=== PATIENT | female | born 2005 | race Two or more races ===

== ENCOUNTER → 2024-05-28 10:37 | Outpatient (BNVA) | payer OTHER, SELFPAY | PROVIDERS: Visit Provider Physician Assistant Surgical ==

== ENCOUNTER 2024-06-21 08:17 | Outpatient (AMB) | payer OTHER, SELFPAY ==
--- OUTSIDE RECORDS SUMMARY | 2024-06-21 08:18 | XMS_ITS | Continuity of Care Document ---
Author Organization [facility] Address [address] [place] [address]- Care Team Providers Care Cupola Hoist Operator Name Role Phone Percy BELLE, Davina Aguiar Primary Care Physician Encounter [facility] [place] Date(s): 03/30/21 - 04/29/21 [facility]/[address] [address]- Attending Physician: AdmOlivia lewis Admitting Physician: Admtr, Olivia Referring Physician: Admtr, Ar8 Allergies, Adverse Reactions, Alerts Substance Reaction Severity Status NKA Active Immunizations Given and Recorded Vaccine Date Status Refusal Reason SARS-CoV-2 (COVID-19) mRNA BNT-162b2 vac 03/09/21 Given Human Papillomavirus Vaccine 06/26/19 Recorded Human Papillomavirus Vaccine 05/08/18 Recorded Influenza Virus Vaccine (oldterm) 06/26/19 Recorde d Influenza Virus Vaccine (oldterm) 06/25/18 Recorde d Poliovirus Vaccine, Inactivated 01/18/19 Recorded Poliovirus Vaccine, Inactivated 03/24/08 Recorded Poliovirus Vaccine, Inactivated 04 Recorded Meningococcal Conjugate Vaccine 05/08/18 Recorded tetanus-diphtheria toxoids (Td) 05/08/18 Recorded Varicella Virus Vaccine 12/05/11 Recorded Varicella Virus Vaccine 08/19/08 Recorded Measles/Mumps/Rubella Virus Vaccine 01/21/10 Recor ded Measles/Mumps/Rubella Virus Vaccine 08/19/08 Recor ded Haemophilus B Conj Vaccine (oldterm) 05/06/09 Luis rded Haemophilus B Conj Vaccine (oldterm) 03/24/08 Luis rded Haemophilus B Conj Vaccine (oldterm) 04 Luis rded Hepatitis B Vaccine (old term) 05/06/09 Recorded Hepatitis B Vaccine (old term) 01/24/05 Recorded Hepatitis B Vaccine (old term) 04 Recorded Hepatitis B Vaccine (old term) 04 Recorded diphtheria/tetanus/pertussis, acel(DTaP) 01/16/09 Recorded diphtheria/tetanus/pertussis, acel(DTaP) 08/15/08 Recorded diphtheria/tetanus/pertussis, acel(DTaP) 03/24/08 Recorded diphtheria/tetanus/pertussis, acel(DTaP) 05/15/06 Recorded diphtheria/tetanus/pertussis, acel(DTaP) 04 Recorded Diphth-Tetanus Toxoids (Pedi) (oldterm) 05/15/06 G iven pneumococcal 13-valent vaccine 01/24/05 Recorded pneumococcal 13-valent vaccine 04 Recorded Medications Augmentin 875 mg-125 mg oral tablet 1 tablet, By Mouth, Every 12 hours, # 14 tablet, 0 Refills, Maintenance, 01/17/21 16:16:00 EDT, Tablet, Partial fill upon patient request if the prescription is for a schedule II opioid drug. Start Date: 01/17/21 Stop Date: 01/24/21 Status: Ordered Problem List Condition Effective Dates Status Health Status Inform ant Obesity, pediatric(Confirmed) Active Cerebral concussion(Confirmed) Active Eczema(Confirmed) Active Menstrual periods irregular(Confirmed) Active Failed vision screen(Confirmed) Active Social History Social History Type Response Smoking Status Never smoker; Tobacc o user in household: No entered on: 02/17/15 Sex
--- OUTSIDE RECORDS SUMMARY | 2024-06-21 08:18 | XMS_ITS | Continuity of Care Document ---
Author Organization [facility] Address [address] [place] [address]- Care Team Providers Care Machine Taper Name Role Phone Percy BELLE, Davina Aguiar Primary Care Physician [place] [facility] [place] Date(s): 01/04/22 - [facility] [address] [address]- Attending Physician: Not on Staff, Attending MD Allergies, Adverse Reactions, Alerts No Known Allergies Immunizations Given and Recorded Vaccine Date Status Refusal Reason SARS-CoV-2 mRNA (vkkijhx-bsof-fwqyy) vax 11/21/21 Given tetanus/diphtheria/pertussis, acel(Tdap) 09/15/21 Given influenza virus vaccine, inactivated 07/21/21 Give n SARS-CoV-2 (COVID-19) mRNA BNT-162b2 vac 05/26/21 Given SARS-CoV-2 (COVID-19) mRNA BNT-162b2 vac 03/09/21 Given [...] Recorded pneumococcal 13-valent vaccine 04 Recorded Medications betamethasone topical valerate 0.1% ointment See Instructions, mix small amount with other 2 creams, apply sparingly to nipple after each feed, do not remove before next feed, # 45 Gm, 0 Refills, Maintenance, 01/31/22 12:17:00 EDT, [facility] #[id number], Partial fill upon patient request i... Start Date: 01/31/22 Status: Ordered Depo-Provera Inj = 150 mg, Intramuscular, Once, 0 Refills, Maintenance Start Date: 11/21/21 Status: Ordered hydrocortisone 1% topical cream 1 application, Topically, 2 times a day, apply to af apply in a thin film to the affected skin and rub in gently and completely, # 15 Gm, 0 Refills, Maintenance, 01/31/22 12:06:00 EDT, Cream, [facility] #[id number], may substitute cream for oint... Start Date: 01/31/22 Status: Ordered miconazole 2% topical ointment See Instructions, mix small amount with 2 other creams ordered, apply sparingly to nipple after each feed, do not remove before next feed, # 45 Gm, 0 Refills, Maintenance, 01/31/22 12:17:00 EDT, [facility] #[id number], Partial fill upon patient r... Start Date: 01/31/22 Status: Ordered mupirocin 2% topical ointment See Instructions, mix small amount with 2 other creams, apply sparingly to nipple after each feed, do not remove before next feed, # 45 Gm, 0 Refills, Maintenance, 01/31/22 12:17:00 EDT, [facility] #[id number], Partial fill upon patient request i... Start Date: 01/31/22 Status: Ordered Multivitamins with Folic Acid 1 mg oral capsule See Instructions, TAKE ONE DAILY BY MOUTH, # 100 capsule, 3 Refills, Maintenance, 05/11/21 14:11:00EDT, [facility] #[id number], Partial fill upon patient request if the prescription is for a schedule II opioid drug., TAKE ONE DAILY BY MOUTH, 157... Start Date: 05/11/21 Status: Ordered ProAir HFA 90 mcg/inh inhalation aerosol with adapter 2, puffs, Inhalation, Every 6 hours, PRN, # 18 Gm, Refills 1, Tot. Refills 1, Maintenance, 05/26/2115:26:00 EDT, Aerosol, Route to Pharmacy Electronically, [id number], [facility] #[id number], 157, cm, 05/26/21 15:17:00... Start Date: 05/26/21 Status: Ordered Vaporizer Vaporizer, See Instructions, # 1 each, Refills 0, Tot. Refills 0, Maintenance, use as directed bedside Dx Allergic rhinitis, eczema, 07/28/21 17:31:00 EST, Supply, 157, cm, 07/21/21 16:18:00 EDT, Height, 103.63, kg, 07/28/21 16:32:00 EST, Dry Weight Start Date: 07/28/21 Status: Ordered Problem List Condition Effective Dates Status Health Status Inform ant H/O Anxiety(Confirmed) 1 Active Asthma(Confirmed) 2 Active H/O Cerebral concussion(Confirmed) 2014 Active Vaccinated with 1st/COVID-19(Confirmed) 05/11/21 Active H/O Eczema(Confirmed) Active History of hemorrhage(Confirmed) Active H/O Irregular Menses(Confirmed) Active 1not engaged with mental health services at present. Informed of [facility] services - pt to call office and request services if needed. 2managed by PCP Social History Social History Type Response Smoking Status Never (less than 100 in lifetime); Exposure to Secondhand Smoke: No entered on: 07/28/21 Sex
--- OUTSIDE RECORDS SUMMARY | 2024-06-21 08:18 | XMS_ITS | Continuity of Care Document ---
Author Organization [facility] Address [address] [place] [address]- Care Team Providers Care Independent Driver Name Role Phone Vsihnu Sun MD Primary Care Physician [phone] [facility] [place] Date(s): 06/01/23 - 08/27/[address] [address]- Attending Physician: Not on Staff, Attending MD Allergies, Adverse Reactions, Alerts No Known Allergies Immunizations Given and Recorded Vaccine Date Status Refusal Reason influenza virus vaccine, inactivated 06/30/23 Give n influenza virus vaccine, inactivated 08/26/22 Give n influenza virus vaccine, inactivated 07/21/21 Give n SARS-CoV-2 mRNA (rbrxpxz-dwcc-oahpi) vax 11/21/21 Given tetanus/diphtheria/pertussis, acel(Tdap) 09/15/21 Given SARS-CoV-2 (COVID-19) mRNA BNT-162b2 vac 05/26/21 Given [...] Recorded pneumococcal 13-valent vaccine 04 Recorded Medications loratadine 10 mg oral tablet 10 mg, 1, tablet, By Mouth, Daily, PRN, # 30 tablet, Refills 2, Tot. Refills 2, Maintenance, Itch, 06/30/23 13:12:00 EDT, Route to Pharmacy Electronically, [facility] #[id number], Partial fill upon patient request if the prescription is for a miesha... Start Date: 06/30/23 Stop Date: 09/28/23 Status: Ordered Protective Ointment with Vitamins A&D topical ointment 1 applicator, Topically, Daily, apply on dry skin, # 120 Gm, 2 Refills, Maintenance, 06/30/23 13:12:00 EDT, [facility] #[id number], Partial fill upon patient request if the prescription is for aschedule II opioid drug., 1 applicator Topically Da... Start Date: 06/30/23 Status: Ordered Problem List Condition Confirmation Course Effective Dates Status Health St [facility] Informant H/O Anxiety 1 Confirmed Active Asthma 2 Confirmed Active H/O Cerebral concussion Confirmed 2014 Active Vaccinated with 1st/COVID-19 Confirmed 05/11/21 Active H/O Eczema Confirmed Active History of hemorrhage Confirmed Active H/O Irregular Menses Confirmed Active Healthy adolescent on routine physical examination Confirmed Active 1not engaged with mental health services at present. Informed of [facility] services - pt to call office and request services if needed. 2managed by PCP Social History Social History Type Response Smoking Status Never (less than 100 in lifetime); Exposure to Secondhand Smoke: No entered on: 07/28/21 Sex Patient Care team information Care Team Personnel Name: Vishnu Sun MD Position: [facility] Resident Member Role: PCP Address: Address: [address] [place] [address]- Care Team Related Persons Name: LAM REBOLLEDO Address: home [address] [place] [id number] Name: ЕЛЕНА REBOLLEDO Address: home [address] [place] [address] Name: LAM SMALL Address: home [address] [place] [address] Name: CATALINA CASTLE Address: home [address] [place] [phone] Name: TAMMY ANG Address: home [address] [place] [address] Name: KALIE ROSAS Address: [address] Address: home [address] [place] [address] Name: ЕЛЕНА SCHMID Address: home [address] [place] [address]
--- OUTSIDE RECORDS SUMMARY | 2024-06-21 08:18 | XMS_ITS | Continuity of Care Document ---
Author Organization [facility] Address [address] [place] [address]- Care Team Providers Care Multimedia Assistant Name Role Phone Vishnu Sun MD Primary Care Physician Encounter [facility] Date(s): 11/02/23 - 01/24/[address] [address]- Attending Physician: Not on Staff, Attending MD Allergies, Adverse Reactions, Alerts No Known Allergies Immunizations Given and Recorded Vaccine Date Status Refusal Reason Meningococcal Conjugate Vaccine 08/28/23 Given Meningococcal Conjugate Vaccine 05/08/18 Recorded Hepatitis A Adult Vaccine 08/28/23 Given influenza virus vaccine, inactivated 06/30/23 Give n influenza virus vaccine, inactivated 08/26/22 Give n influenza virus vaccine, inactivated 07/21/21 Give n SARS-CoV-2 mRNA ([id number]-lafo-ciyfa) vax 11/21/21 Given tetanus/diphtheria/pertussis, acel(Tdap) 09/15/21 Given SARS-CoV-2 (COVID-19) mRNA BNT-162b2 vac 05/26/21 Given SARS-CoV-2 (COVID-19) mRNA BNT-162b2 vac 03/09/21 Given Human Papillomavirus Vaccine 06/26/19 Recorded Human Papillomavirus Vaccine 05/08/18 Recorded Influenza Virus Vaccine (oldterm) 06/26/19 Recorde d Influenza Virus Vaccine (oldterm) 06/25/18 Recorde d Poliovirus Vaccine, Inactivated 01/18/19 Recorded Poliovirus Vaccine, Inactivated 03/24/08 Recorded Poliovirus Vaccine, Inactivated 04 Recorded tetanus-diphtheria toxoids (Td) 05/08/18 Recorded Varicella [...] Recorded pneumococcal 13-valent vaccine 04 Recorded Medications calcium carbonate 500 mg (200 mg elemental calcium) oral tablet, chewable 1,000 mg, 2, tablet, Chew, Daily, PRN, # 60 tablet, Refills 1, Tot. Refills 1, Maintenance, as needed for dyspepsia, 08/28/23 15:23:00 EST, Route to Pharmacy Electronically, [facility] #[id number], Partial fill upon patient request if the prescri... Start Date: 08/28/23 Status: Ordered fluticasone 50 mcg/inh nasal spray See Instructions, SHAKE LIQUID AND USE 1 SPRAY IN EACH NOSTRIL DAILY SHAKE WELL BEFORE USING, # 16 Gm, 11 Refills, Maintenance, 09/29/23 17:26:00 EST, [facility] #[id number], 30, SHAKE LIQUID AND USE 1 SPRAY IN EACH NOSTRIL DAILY SHAKE WELL BEFOR... Start Date: 09/29/23 Status: Ordered loratadine 10 mg oral tablet 10 mg, 1, tablet, By Mouth, Daily, PRN, # 30 tablet, Refills 2, Tot. Refills 2, Maintenance, Itch, 09/28/23 13:12:00 EST, Route to Pharmacy Electronically, [facility] #[id number], Partial fill upon patient request if the prescription is for a miesha... Start Date: 09/28/23 Stop Date: 12/27/23 Status: Ordered omeprazole 20 mg oral enteric coated capsule 1 capsule, By Mouth, Daily, # 14 capsule, 0 Refills, Maintenance, 09/12/23 18:52:00 EST, [facility] #[id number], 156, cm, 08/28/23 14:14:00 EST, Height, 114.3, kg, 08/28/23 14:14:00 EST, Dry Weight Start Date: 09/12/23 Stop Date: 09/26/23 Status: Ordered predniSONE 20 mg oral tablet See Instructions, 3 tab PO one time , then 2 tab PO one time a day for 4 days., # 11 tablet, 0 Refills, Maintenance, 08/28/23 15:19:00 EST, [facility] #[id number], Partial fill upon patient request if the prescription is for a schedule II opioid... Start Date: 08/28/23 Status: Ordered Protective Ointment with Vitamins A&D topical ointment 1 applicator, Topically, Daily, apply on dry skin, # 120 Gm, 2 Refills, Maintenance, 06/30/23 13:12:00 EDT, [facility] #[id number], Partial fill upon patient request if the [...] mental health services at present. Informed of [facility] services - pt to call office and request services if needed. 2managed by PCP Social History Social History Type Response Smoking Status Never (less than 100 in lifetime); Exposure to Secondhand Smoke: No entered on: 07/28/21 Sex Patient Care team information Care Team Personnel Name: Vishnu Sun MD Position: S Resident Member Role: PCP Address: Address: [address] [place] [address]- Care Team Related Persons Name: LAM REBOLLEDO Address: home [address] [place] [address] Name: ЕЛЕНА REBOLLEDO Address: home [address] [place] [address] Name: LAM SMALL Address: home [address] [place] [address] Name: CATALINA CASTLE Address: home [address] [place] [address] Name: TAMMY ANG Address: home [address] [place] [address] Name: KALIE ROSAS Address: [address] Address: home [address] [place] [address] Name: ЕЛЕНА SCHMID Address: home [address] [place] [address]
--- OUTSIDE RECORDS SUMMARY | 2024-06-21 08:18 | XMS_ITS | Continuity of Care Document ---
Author Organization [facility] Address [address] [place] [address]- Care Team Providers Care Engineer Technician Name Role Phone Percy BELLE, Davina Aguiar Primary Care Physician [place] [facility] [place] Date(s): 08/26/22 - 09/25/22 [facility] [address]- Attending Physician: AdmOlivia lewis Admitting Physician: Admtr, Ar8 Referring Physician: Admtr, Ar8 Allergies, Adverse Reactions, Alerts No Known Allergies Immunizations Given and Recorded Vaccine Date Status Refusal Reason influenza virus vaccine, inactivated 08/26/22 Give n influenza virus vaccine, inactivated 07/21/21 Give n SARS-CoV-2 mRNA ([id number]-edny-rnsnz) vax 11/21/21 Given tetanus/diphtheria/pertussis, acel(Tdap) 09/15/21 Given [...] Recorded pneumococcal 13-valent vaccine 04 Recorded Medications Liletta 52 mg intrauterine device 1 each = 52 mg, Once, Inserted 02/28/22, 0 Refills, Maintenance, 02/28/22 16:23:00 EDT, Partial fillupon patient request if the prescription is for a schedule II opioid drug. Start Date: 02/28/22 Status: Ordered omeprazole 20 mg oral enteric coated capsule 1 capsule = 20 mg, By Mouth, Daily, # 30 capsule, 0 Refills, Maintenance, 08/26/22 10:39:00 EST, [place], [facility] #[id number], Partial fill upon patient request if the prescription is for a schedule II opioid drug., 154.5, cm, 08/26/22 9:56... Start Date: 08/26/22 Status: Ordered Multivitamins with Folic Acid 1 mg oral capsule See Instructions, TAKE ONE DAILY BY MOUTH, # 100 capsule, 3 Refills, Maintenance, 05/11/21 14:11:00EDT, [facility] #[id number], Partial fill upon patient request if the prescription is for a schedule II opioid drug., TAKE ONE DAILY BY MOUTH, 157... Start Date: 05/11/21 Status: Ordered ProAir HFA 90 mcg/inh inhalation aerosol with adapter 2, puffs, Inhalation, Every 6 hours, PRN, # 18 Gm, Refills 1, Tot. Refills 1, Maintenance, 05/26/2115:26:00 EDT, Aerosol, Route to Pharmacy Electronically, [id number], [id number], 157, cm, 05/26/21 15:17:00... Start Date: 05/26/21 Status: Ordered Vaporizer Vaporizer, See Instructions, # 1 each, Refills 0, Tot. Refills 0, Maintenance, use as directed bedside Dx Allergic rhinitis, eczema, 07/28/21 17:31:00 EST, Supply, 157, cm, 07/21/21 16:18:00 EDT, Height, 103.63, kg, 07/28/21 16:32:00 EST, Dry Weight Start Date: 07/28/21 Status: Ordered Problem List Condition Confirmation Course Effective Dates Status Health St [facility] Informant H/O Anxiety 1 Confirmed Active Asthma 2 Confirmed Active H/O Cerebral concussion Confirmed 2015 Active Vaccinated with 1st/COVID-19 Confirmed 05/11/21 Active H/O Eczema Confirmed Active History of hemorrhage Confirmed Active H/O Irregular Menses Confirmed Active Healthy adolescent on routine physical examination Confirmed Active 1not engaged with mental health services at present. Informed of [facility] services - pt to call office and request services if needed. 2managed by PCP Social History Social History Type Response Smoking Status Never (less than 100 in lifetime); Exposure to Secondhand Smoke: No entered on: 07/28/21 Sex Patient Care team information Care Team Personnel Name: Davina Greer MD, V Position: [facility] Primary Care Physician Member Role: PCP Address: Address: [address] [place] [address]- Care Team Related Persons Name: ЕЛЕНА REBOLLEDO Address: home [address] [place] [address] Name: LAM SMALL Address: home [address] [place] [address] Name: CATALINA CASTLE Address: home [address] [place] [address] Name: TAMMY ANG Address: home [address] [place] [address] Name: RALPHVAZQUEZROBERT Address: [address] Address: home [address] [place] [address] Name: ЕЛЕНА SCHMID Address: home [address] [place] [address]
--- OUTSIDE RECORDS SUMMARY | 2024-06-21 08:18 | XMS_ITS | Continuity of Care Document ---
Author Organization [facility] Address [address] [place] [address]- Care Team Providers Care Land Law Examiner Name Role Phone Percy BELLE, Davina Aguiar Primary Care Physician [place] [facility] [place] - 12/24/[facility] [address] [address]- Attending Physician: Sofia Donnelly CNM Admitting Physician: Sofia Donnelly CNM Allergies, Adverse Reactions, Alerts No Known Allergies Immunizations Given and Recorded Vaccine Date Status Refusal Reason SARS-CoV-2 mRNA (niojzlw-acuv-vtxgh) vax 11/21/21 Given tetanus/diphtheria/pertussis, acel(Tdap) 09/15/21 Given [...] rded Haemophilus B Conj Vaccine (oldterm) 04 Lusi rded Hepatitis B Vaccine (old term) 05/06/09 [...] Recorded pneumococcal 13-valent vaccine 04 Recorded Medications Colace sodium 100 mg oral capsule 100 mg, 1, capsule, By Mouth, 2 times a day, PRN, # 60 capsule, Refills 1, Tot. Refills 1, Maintenance, for constipation, 05/26/21 15:26:00 EDT, Route to Pharmacy Electronically, [facility]#[id number], Partial fill upon patient request if the pr... Start Date: 05/26/21 Status: Ordered Depo-Provera Inj = 150 mg, Intramuscular, Once, 0 Refills, Maintenance Start Date: 11/21/21 Status: Ordered famotidine 20 mg oral tablet 20 mg, 1, tablet, By Mouth, Daily at bedtime, # 90 tablet, Refills 1, Tot. Refills 1, Maintenance, 09/29/21 16:45:00 EST, Route to Pharmacy Electronically, [facility] #[id number], Partial fill upon patient request if the prescription is for a miesha... Start Date: 09/29/21 Status: Ordered MiraLax oral powder for reconstitution = 17 Gm, By Mouth, Daily, dissolve in water before taking, # 255 Gm, 0 Refills, Maintenance, 07/16/21 16:52:00 EDT, REC Powder, [facility] #[id number], Partial fill upon patient request if the prescription is for a schedule II opioid drug., 17 Gm... Start Date: 07/16/21 Status: Ordered Multivitamins with Folic Acid 1 mg oral capsule See Instructions, TAKE ONE DAILY BY MOUTH, # 100 capsule, 3 Refills, Maintenance, 05/11/21 14:11:00EDT, [facility] #[id number], Partial fill upon patient request if the prescription is for a schedule II opioid drug., TAKE ONE DAILY BY MOUTH, 157... Start Date: 05/11/21 Status: Ordered ProAir HFA 90 mcg/inh inhalation aerosol with adapter 2, puffs, Inhalation, Every 6 hours, PRN, # 18 Gm, Refills 1, Tot. Refills 1, Maintenance, 05/26/2115:26:00 EDT, Aerosol, Route to Pharmacy Electronically, [id number], [facility] #[id number], 157, cm, 05/26/21 15:17:00... Start Date: 05/26/21 [...] H/O Anxiety(Confirmed) 1 Active Asthma(Confirmed) 2 Active Positive GBS test(Confirmed) 3 05/26/21 Active H/O Cerebral concussion(Confirmed) 2014 Active Vaccinated with 1st/COVID-19(Confirmed) 05/11/21 Active H/O Eczema(Confirmed) Active H/O Irregular Menses(Confirmed) Active Obesity during (Confirmed) Active (Confirmed) Active Intrauterine in teenager(Confirmed) Active 1not engaged with mental health services at present. Informed of [facility] services - pt to call office and request services if needed. 2managed by PCP 3Urine Social History Social History Type Response Smoking Status Never (less than 100 in lifetime); Exposure to Secondhand Smoke: No entered on: 07/28/21 Sex
--- OUTSIDE RECORDS SUMMARY | 2024-06-21 08:18 | XMS_ITS | Continuity of Care Document ---
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 Name Role Phone Vishnu Sun MD Primary Care Physician [place] [facility] [place] 10/12/23 [facility] [address]- [place] Allergies, Adverse Reactions, Alerts No Known Allergies Immunizations Given and Recorded Vaccine Date Status Refusal Reason Meningococcal Conjugate Vaccine 08/28/23 Given Meningococcal Conjugate Vaccine 05/08/18 Recorded Hepatitis A Adult Vaccine 08/28/23 Given influenza virus vaccine, inactivated 06/30/23 Give n influenza virus vaccine, inactivated 08/26/22 Give n influenza virus vaccine, inactivated 07/21/21 Give n SARS-CoV-2 mRNA ([id number]) vax 11/21/21 Given tetanus/diphtheria/pertussis, acel(Tdap) 09/15/21 Given [...] 08/28/23 15:23:00 EST, Route to Pharmacy Electronically, [facility] #[id number], Partial fill upon patient request if the prescri... Start Date: 08/28/23 Status: Ordered fluticasone 50 mcg/inh nasal spray See Instructions, SHAKE LIQUID AND USE 1 SPRAY IN EACH NOSTRIL DAILY SHAKE WELL BEFORE USING, # 16 Gm, 11 Refills, Maintenance, 09/29/23 17:26:00 EST, [facility] #[id number], 30, SHAKE LIQUID AND USE 1 SPRAY IN EACH NOSTRIL DAILY SHAKE WELL BEFOR... Start Date: 09/29/23 Status: Ordered loratadine 10 mg oral tablet 10 mg, 1, tablet, By Mouth, Daily, PRN, # 30 tablet, Refills 2, Tot. Refills 2, Maintenance, Itch, 09/28/23 13:12:00 EST, Route to Pharmacy Electronically, [facility] #[id number], Partial fill upon patient request if the prescription is for a miesha... Start Date: 09/28/23 Stop Date: 12/27/23 Status: Ordered omeprazole 20 mg oral enteric coated capsule 1 capsule, By Mouth, Daily, # 14 capsule, 0 Refills, Maintenance, 09/12/23 18:52:00 EST, [facility] #[id number], 156, cm, 08/28/23 14:14:00 EST, Height, 114.3, kg, 08/28/23 14:14:00 EST, Dry Weight Start Date: 09/12/23 Stop Date: 09/26/23 Status: Ordered predniSONE 20 mg oral tablet See Instructions, 3 tab PO one time , then 2 tab PO one time a day for 4 days., # 11 tablet, 0 Refills, Maintenance, 08/28/23 15:19:00 EST, [facility] #[id number], Partial fill upon patient request if the prescription is for a schedule II opioid... Start Date: 08/28/23 Status: Ordered Protective Ointment with Vitamins A&D topical ointment 1 applicator, Topically, Daily, apply on dry skin, # 120 Gm, 2 Refills, Maintenance, 06/30/23 13:12:00 EDT, [facility] #[id number], Partial fill upon patient request if the [...] mental health services at present. Informed of [facility] services - pt to call office and request services if needed. 2managed by PCP Social History Social History Type Response Smoking Status Never (less than 100 in lifetime); Exposure to Secondhand Smoke: No entered on: 07/28/21 Sex Patient Care team information Care Team Personnel Name: Vishnu Sun MD Position: S Resident Member Role: PCP Address: Address: [address] [place] [address]- [place] Care Team Related Persons Name: LAM REBOLLEDO Address: home [address] [place] [address] Name: ЕЛЕНА REBOLLEDO Address: home [address] [place] [address] Name: LAM SMALL Address: home [address] [place] [address] Name: CATALINA CASTLE Address: [address] [place] [address] Name: TAMMY ANG Address: home [address] [place] [address] Name: KALIE ROSAS Address: [id number] Address: home [address] [place] [address] Name: ЕЛЕНА SCHMID Address: home [address] [place] [address]
--- OUTSIDE RECORDS SUMMARY | 2024-06-21 08:18 | XMS_ITS | Continuity of Care Document ---
Author Organization [facility] Address [address] [place] [address]- Care Team Providers Care Occupational Safety Specialist Name Role Phone Vishnu Sun MD Primary Care Physician [phone] [place] [facility] [place] - 01/30/[address] [address]- Discharge Disposition: A-D/C Home Attending Physician: Willian Wheeler MD Admitting Physician: Willian Wheeler MD Referring Physician: Not on Staff, Referring MD Allergies, Adverse Reactions, Alerts No Known Allergies Immunizations Given and Recorded Vaccine Date Status Refusal Reason Meningococcal Conjugate Vaccine 08/28/23 Given Meningococcal Conjugate Vaccine 05/08/18 Recorded Hepatitis A Adult Vaccine 08/28/23 Given influenza virus vaccine, inactivated 06/30/23 Give n influenza virus vaccine, inactivated 08/26/22 Give n influenza virus vaccine, inactivated 07/21/21 Give n SARS-CoV-2 mRNA (nqhvyqa-[id number]) vax 11/21/21 Given tetanus/diphtheria/pertussis, acel(Tdap) 09/15/21 Given [...] 08/28/23 15:23:00 EST, Route to Pharmacy Electronically, [facility] #[id number], Partial fill upon patient request if the prescri... Start Date: 08/28/23 Status: Ordered fluticasone 50 mcg/inh nasal spray See Instructions, SHAKE LIQUID AND USE 1 SPRAY IN EACH NOSTRIL DAILY SHAKE WELL BEFORE USING, # 16 Gm, 11 Refills, Maintenance, 09/29/23 17:26:00 EST, [facility] #[id number], 30, SHAKE LIQUID AND USE 1 SPRAY IN EACH NOSTRIL DAILY SHAKE WELL BEFOR... Start Date: 09/29/23 Status: Ordered loratadine 10 mg oral tablet 10 mg, 1, tablet, By Mouth, Daily, PRN, # 30 tablet, Refills 2, Tot. Refills 2, Maintenance, Itch, 09/28/23 13:12:00 EST, Route to Pharmacy Electronically, [facility] #[id number], Partial fill upon patient request if the prescription is for a miesha... Start Date: 09/28/23 Stop Date: 12/27/23 Status: Ordered omeprazole 20 mg oral enteric coated capsule 1 capsule, By Mouth, Daily, # 14 capsule, 0 Refills, Maintenance, 09/12/23 18:52:00 EST, [facility] #[id number], 156, cm, 08/28/23 14:14:00 EST, Height, 114.3, kg, 08/28/23 14:14:00 EST, Dry Weight Start Date: 09/12/23 Stop Date: 09/26/23 Status: Ordered ondansetron 4 mg oral tablet, disintegrating 1 tablet = 4 mg, By Mouth, Every 8 hours, PRN Nausea & Vomiting, for 3 days, # 9 tablet, 0 Refills, Acute 02/02/24 4:29:00 EDT, 01/30/24 4:29:00 EDT, Tablet, [facility] #[id number], Partial fill upon patient request if the prescription is for a s... Start Date: 01/30/24 Stop Date: 02/02/24 Status: Ordered predniSONE 20 mg oral tablet See Instructions, 3 tab PO one time , then 2 tab PO one time a day for 4 days., # 11 tablet, 0 Refills, Maintenance, 08/28/23 15:19:00 EST, [facility] #[id number], Partial fill upon patient request if the prescription is for a schedule II opioid... Start Date: 08/28/23 Status: Ordered Protective Ointment with Vitamins A&D topical ointment 1 applicator, Topically, Daily, apply on dry skin, # 120 Gm, 2 Refills, Maintenance, 06/30/23 13:12:00 EDT, [facility] #[id number], Partial fill upon patient request if the prescription is for aschedule II opioid drug., 1 applicator Topically Da... Start Date: 06/30/23 Status: Ordered Toradol Inj 10 mg, Injection, IV Push Slowly, Once, STAT, 01/29/24 21:55:00 EDT, Stop date 01/29/24 21:55:00 EDT Start Date: 01/29/24 Stop Date: 01/29/24 Status: Completed Problem List Condition Confirmation Course Effective Dates [...] mental health services at present. Informed of [facility] services - pt to call office and request services if needed. 2managed by PCP Results Radiology Reports * Exam Date Time Procedure Performing Provider Status 01/30/24 2:[address] Abd/Pelvis W/ IV + Oral Contrast Ab Christianson; Popyp (Verified) Notes: (CT Abd/Pelvis W/ IV + Oral Contrast) Reason For Exam: RLQ abdominal pain;Other: RESULT: CT Abd/Pelvis W/ IV + Oral Contrast CT Abd/Pelvis W/ IV + Oral Contrast Hx of Present Illness: Pt c o n v d for the past week accompanied with right upper abdominal pain. Pt denies noting fever chills. hx gallbladder removal. Pt denies sob, c p. Pt denies dysuria; Reason: Other:; RLQ abdominal pain; Clinical Question(s): Other:; Order Comment: TECHNIQUE: Spiral CT through the abdomen and pelvis with IV contrast formatted in 3 planes. 100 cc of Omnipaque 300 was administered intravenously. This study was performed without oral contrast. Weight-based protocol using automatic tube modulation was used to optimize exposure parameters. CTDIvol Body: 30.00 mGy, DLP Body: 1680 mGy*cm. COMPARISON: CT 08/05/2023. FINDINGS: Automated Process Operator View Findings, Lines and Tubes: None. Visualized Chest: Lung bases are clear. No pleural effusion. The heart is normal in size. No pericardial effusion. Diaphragm: Normal. Liver: Diffuse low-attenuation throughout the liver parenchyma consistent with hepatic steatosis. No evidence of mass. Gallbladder: Absent consistent with prior cholecystectomy. Bile ducts: No biliary ductal dilation. Spleen: Normal. Accessory splenic tissue is incidentally noted. Pancreas: Normal. Adrenal glands: Normal. Kidneys and ureters: No hydronephrosis, stones, or suspicious masses. Bladder: Normal. Reproductive organs: IUD in place. Stomach, small bowel, and large bowel: The stomach is physiologically distended. The small and large bowel are normal in caliber without evidence of obstruction. The Oral contrast has reached the terminal ileum. Appendix: Normal, best seen on coronal 55. Peritoneum and retroperitoneum: No ascites or pneumoperitoneum. No omental or mesenteric lesions. Lymph nodes: No enlarged lymph nodes. Small mesenteric lymph nodes, example series 201 image 64. Blood vessels: Normal. No aneurysm. No evidence of venous thrombosis. Abdominal and pelvic wall: Unremarkable. Bones: No acute abnormality. IMPRESSION: No acute abnormality. I have personally reviewed the images and I agree with this report. WSN: [id number] Ordering Physician: Soniya Rainey Dictated By: Natalio Mahan MD Dictated Date/Time: 01/30/24 7:30 am Reviewed By: Cailin Lin MD Signed By: Cailin Lin MD Signed Date/Time: 01/30/24 7:35 am Transcribed By: MALI Transcribed Date/Time: 01/30/24 3:27 am Vital Signs Most recent to oldest [Reference Range]: 1 2 3 Height 155 cm (01/29/24 6:58 PM) 155 cm (01/29/24 5:23 PM) Weight 111.3 kg (01/29/24 6:58 PM) 111.3 kg (01/29/24 5:23 PM) Oxygen Saturation [94-100 %] 100 % (01/30/24 4:34 AM) 100 % (01/29/24 11:04 PM) 100 % (01/29/24 5:23 PM) Pulse Rate [55-90 bpm] 88 bpm (01/30/24 4:34 AM) 98 bpm *H* (01/29/24 11:04 PM) 96 bpm *H* (01/29/24 5:23 PM) Body Mass Index [18.5-24.99 kg/m2] 46.33 kg/m2 *>HHI* (01/29/24 5:23 PM) Blood Pressure [90-138/55-84 mm Hg] 105/63mm Hg (01/30/24 4:34 AM) 118/65mm Hg (01/29/24 11:04 PM) 115/71mm Hg (01/29/24 5:23 PM) Respiratory Rate [16-30 br/min] 18 br/min (01/30/24 4:34 AM) 16 br/min (01/29/24 11:04 PM) 18 br/min (01/29/24 5:23 PM) Temperature [96.8-100.4 DegF] 97.5 DegF (01/30/24 4:34 AM) 98.1 DegF (01/29/24 5:23 PM) Mode of Delivery (Oxygen) Room air (01/30/24 4:34 AM) Room air (01/29/24 11:04 PM) Room air (01/29/24 5:23 PM) Blood pressure sites Arm, right (01/30/24 4:34 AM) Arm, left (01/29/24 11:04 PM) Arm, left (01/29/24 5:23 PM) Temperature Route Oral (01/30/24 4:34 AM) Oral (01/29/24 5:23 PM) Dry Weight 111.3 kg (01/29/24 6:58 PM) 111.3 kg (01/29/24 5:23 PM) Weight Obtained Via Patient/family state d (01/29/24 5:23 PM) Dry Weight Obtained Via Patient/family s tated (01/29/24 5:23 PM) Height Percentile 10.09 % 1 (01/29/24 6:58 PM) 10.09 % 2 (01/29/24 5:23 PM) Height ZScore -1.28 3 (01/29/24 6:58 PM) -1.28 4 (01/29/24 5:23 PM) Weight Percentile Per Age 99.29 % 5 (01/29/24 6:58 PM) 99.29 % 6 (01/29/24 5:23 PM) BMI Percentile 99.10 7 (01/29/24 5:23 PM) BMI ZScore 2.37 8 (01/29/24 5:23 PM) Weight ZScore 2.45 9 (01/29/24 6:58 PM) 2.45 10 (01/29/24 5:23 PM) 1Result Comment: ^~:!Percentile Source [facility] 2Result Comment: ^~:!Percentile Source [facility] 3Result Comment: ^~:!ZScore Source [facility] 4Result Comment: ^~:!ZScore Source [facility] 5Result Comment: ^~:!Percentile Source [facility] 6Result Comment: ^~:!Percentile Source [facility] 7Result Comment: ^~:!Percentile Source [facility] 8Result Comment: ^~:!ZScore Source [facility] 9Result Comment: ^~:!ZScore Source [facility] 10Result Comment: ^~:!ZScore Source [facility] Social History Social History Type Response Smoking Status Never (less than 100 in lifetime); Exposure to Secondhand Smoke: No entered on: 07/28/21 Sex Note * Liam BELLE, Willian Darnell: PERFORM Event Display: Patient Education Leaflets Authored Date: [id number] Ondansetron Disintegrating Oral Tablet ?? [id number] Ondansetron Disintegrating Oral Tablet Uses For nausea or vomiting. ?? Instructions Let the medicine dissolve on your tongue and then swallow. Keep the medicine at room temperature. Avoid heat and direct light. Tell your doctor if you have severe or persistent sweating, diarrhea or vomiting. These can increase your risk of a serious side effect. If you are using this medicine regularly, it is important to take each dose of medicine on time. Keep taking the medicine even if you feel well. If you forget to take a dose on time, take it as soon as you remember. If it is almost time for thenext dose, do not take the missed dose. Return to your normal schedule. Do not take 2 doses at one time. Drug interactions can change how medicines work or increase risk for side effects. Tell your healthcare providers about all medicines taken. Include prescription and faar-tqj-roxkzsy medicines, vitamins, and herbal medicines. Speak with your doctor or pharmacist before starting or stopping any medicine. Tell your doctor if symptoms do not get better or if they get worse. Keep all appointments for medical exams and tests while on this medicine. ?? Cautions Tell your doctor and pharmacist if you ever had an allergic reaction to a medicine. Some patients taking this medicine have experienced serious side effects. Please speak with your doctor to understand the risks and benefits associated with this medicine. Do not use the medication any more than instructed. This medicine may cause dizziness or fainting. Do not stand or sit up quickly. Your ability to stay alert or to react quickly may be impaired by this medicine. Do not drive or operate machinery until you know how this medicine will affect you. Please check with your doctor before drinking alcohol while on this medicine. Call the doctor if there are any signs of confusion or unusual changes in behavior. It is unknown if this medicine passes into breast milk. Ask your doctor before . During , this medicine should be used only when clearly needed. Talk to your doctor about the risks and benefits. Do not take [place]'s wort while on this medicine. Do not share this medicine with anyone who has not been prescribed this medicine. ?? Side Effects The following is a list of some common side effects from this medicine. Please speak with your doctor about what you should do if you experience these or other side effects. ??? constipation ??? dizziness or drowsiness ??? lack of energy and tiredness ??? headaches ??? lightheadedness Call your doctor or get medical help right away if you notice any of these more serious side effects: ??? agitated feeling or trouble sleeping ??? loss of balance ??? chest pain ??? diarrhea ??? fainting ??? hallucinations (unusual thoughts, seeing or hearing things that are not real) ??? fast, irregular, or slow heartbeat ??? muscle aches, spasms or abnormal movements ??? muscle trembling ??? restlessness ??? stomach pain ??? blurring or changes of vision ??? severe or persistent vomiting A few people may have an allergic reaction to this medicine. Symptoms can include difficulty breathing, skin rash, itching, swelling, or severe dizziness. If you notice any of these symptoms, seek medical help quickly. ?? Extra Please speak with your doctor, nurse, or pharmacist if you have any questions about this medicine. ?? [email or web address] IMPORTANT NOTE: This document tells you briefly how to take your medicine, but it does not tell youall there is to know about it. Your doctor or pharmacist may give you other documents about your medicine. Please talk to them if you have any questions. Always follow their advice. There is a more complete description of this medicine available in [employer]. Scan this code on your smartphone or tablet or use the web address below. You can also ask your pharmacist for a printout. If you have any questions, please ask your pharmacist. The display and use of this drug information is subject to Terms of Use. Copyright(c) 2023 [employer]. ?? [employer]. All rights reserved. This information is not intended as a substitute for professional medical care. Always follow your healthcare professional's instructions. ?? * Liam BELLE, Willian Darnell: PERFORM Event Display: Patient Education Leaflets Authored Date: [id number] Viral Gastroenteritis (Adult) ?? [id number] Viral Gastroenteritis (Adult) Gastroenteritis is often called the stomach flu. But it has nothing to do with influenza. It's mostoften caused by a virus that affects the stomach and intestinal tract. Most bouts last from 2 to 7 days. Common viruses causing gastroenteritis include norovirus, rotavirus, and hepatitis A. Nonviralcauses of gastroenteritis include bacteria, parasites, and toxins. The danger from repeated vomiting or diarrhea is dehydration. This is when the body loses too??muchfluid. When this occurs, you must replace the body fluids. Antibiotics aren't an effective treatment for this condition because it's caused by a virus. Symptoms of viral gastroenteritis may include: ??? Watery, loose stools ??? Stomach pain or belly (abdominal) cramps ??? Fever and chills ??? Nausea and vomiting ??? Loss of bowel control ??? Headache Home care Gastroenteritis is spread by contact with the stool or vomit of an infected person. This can occur from person to person or from contact with a contaminated surface. Follow these guidelines when caring for yourself at home: ??? If symptoms are severe, rest at home for the next 24 hours or until you are feeling better. ???Wash your hands with soap and clean, running water or use alcohol-based consumer loan underwriter to prevent the spread of infection. Wash your hands after touching anyone who is sick. ??? Wash your hands or use alcohol-based consumer loan underwriter after using the toilet and before meals. Clean the toilet after each use. Remember these tips when preparing food: ??? People with diarrhea should not prepare or serve food??to others. When preparing foods, wash your hands before and after. ??? Wash your hands after using cutting boards, counter tops, knives, or utensils??that have been in contact with raw food. ??? Dry your hands with a single-use disposable towel. ??? Keep uncooked meats away from cooked and gwdxz-rm-uei foods. Medicine Use acetaminophen or nonsteroidal anti-inflammatory drugs (NSAID) such as ibuprofen or naproxen to control fever, unless another medicine was given. If you have chronic liver or kidney disease, talk with your healthcare provider before using these medicines. Also talk with your provider if you've??had a stomach ulcer or??gastrointestinal bleeding. Don't give aspirin??to anyone under 18 years of age who is ill with a fever. It may result in a serious illness called Mercedes syndrome that may cause severe liver damage or even . Don't use NSAIDS if you're already taking one for another condition (like arthritis) or are on aspirin (such as for heart disease or after a stroke). If medicines for vomiting or diarrhea are prescribed, take these only as directed. Nausea and diarrhea medicines are generally OK unless you have bleeding, fever, or severe abdominal pain. Diet Follow these guidelines for??food: ??? Water and liquids are important so you don't get dehydrated. Drink small amounts often or suck on ice chips as tolerated if you are vomiting. ??? If you eat, stay away from fatty, greasy, spicy, or fried foods. ??? Don't eat dairy if you have diarrhea. This can make diarrhea worse. ??? Avoid tobacco, alcohol, and caffeine. These may worsen symptoms. During the first 24 hours (the first full day), follow the diet below: ??? Beverages. Sip sports drinks, soft drinks without caffeine, dc [place], mineral water (plain orflavored), decaffeinated tea and coffee. If you are very dehydrated, sports drinks aren't a good choice. They have too much sugar and not enough electrolytes. In this case, use products called oral rehydration solutions. You can buy these at pharmacies and grocery stores. ??? Soups. Eat clear broth, consomm??, and bouillon. ??? Desserts. Eat gelatin, ice pops, and fruit juice bars. During the next 24 hours (the second day), you may add the following to the above: ??? Hot cereal, plain toast, bread, rolls, and crackers ??? Plain noodles, rice, mashed potatoes, chicken noodle or rice soup ??? Unsweetened canned fruit (avoid pineapple), bananas ??? Limit fat intake to less than 15 grams per day. Do this by avoiding margarine, butter, oils, mayonnaise, sauces, gravies, fried foods, peanut butter, meat, poultry, and fish. ??? Limit fiber and avoid raw or cooked vegetables, fresh fruits (except bananas), and bran cereals. ??? Limit caffeine and chocolate. Don't use spices or seasonings other than salt. ??? Limit dairy products. ??? Avoid alcohol. During the next 24 hours: ??? Gradually resume a normal diet as you feel better and your symptoms improve. ??? If at any time it starts getting worse again, go back to clear liquids until you feel better. ?? Follow-up care Follow up with your healthcare provider, or??as advised. Call your provider if you don't get betterwithin 24 hours or if diarrhea lasts more than a few days. It's also important to follow up if you can't keep down liquids, which can lead to becoming dehydrated. If a stool (diarrhea) sample was taken, call as directed for the results. ?? Call 911 Call 911 if any of these occur: ??? Trouble breathing ??? Chest pain ??? Confused ??? Severe drowsiness or trouble awakening ??? Fainting or loss of consciousness ??? Rapid heart rate ??? Seizure ???Stiff neck ?? When to get medical advice Call your healthcare provider right away if any of these occur: ??? Abdominal pain that gets worse ??? Continued vomiting (can't keep liquids down) ??? Frequent diarrhea (more than 5 times a day) ???Blood in vomit or stool (black or red color) ??? Dark urine, reduced urine output, or extreme thirst ??? Weakness or dizziness ??? Drowsiness ??? Fever of 100.4??F (38??C)??or higher, or as advised by your provider ??? New rash ?? Last Reviewed Date: 2021 ?? [id number] [employer]. All rights reserved. This information is not intended as a substitute for professional medical care. Always follow your healthcare professional's instructions. ?? Patient Care team information Care Team Personnel Name: Vishnu Sun MD Position: S Resident Member Role: PCP Address: Address: [address] [place] [address]- Care Team Related Persons Name: LAM REBOLLEDO Address: home [address] [place] [address] Name: ЕЛЕНА REBOLLEDO Address: home [address] [place] [address] Name: LAM SMALL Address: home [address] [place] [address] Name: CATALINA CASTLE Address: home [address] [place] [address] Name: TAMMY ANG Address: home [address] [place] [address] Name: KALIE ROSAS Address: [id number] Address: home [address] [place] [address] Name: ЕЛЕНА SCHMID Address: home [address] [place] [address]
--- OUTSIDE RECORDS SUMMARY | 2024-06-21 08:18 | XMS_ITS | Continuity of Care Document ---
Author Organization [facility] Address [address] [place] [address]- Care Team Providers Care Geotechnical Engineer Name Role Phone Percy BELLE, Davina Aguiar Primary Care Physician [place] [facility] [place] - 09/08/22 [facility] [address]- Attending Physician: Jazmyn Aceves MD Admitting Physician: Jazmyn Aceves MD Allergies, Adverse Reactions, Alerts No Known Allergies Immunizations Given and Recorded Vaccine Date Status Refusal Reason influenza virus vaccine, inactivated 08/26/22 Give n influenza virus vaccine, inactivated 07/21/21 Give n SARS-CoV-2 mRNA ([id number]) vax 11/21/21 Given tetanus/diphtheria/pertussis, acel(Tdap) 09/15/21 Given [...] 0 Refills, Maintenance, 08/26/22 10:39:00 EST, [place], [facility] #[id number], Partial fill upon patient request if the prescription is for a schedule II opioid drug., 154.5, cm, 08/26/22 9:56... Start Date: 08/26/22 Status: Ordered Multivitamins with Folic Acid 1 mg oral capsule See Instructions, TAKE ONE DAILY BY MOUTH, # 100 capsule, 3 Refills, Maintenance, 05/11/21 14:11:00EDT, [facility] #[id number], Partial fill upon patient request if the prescription is for a schedule II opioid drug., TAKE ONE DAILY BY MOUTH, 157... Start Date: 05/11/21 Status: Ordered ProAir HFA 90 mcg/inh inhalation aerosol with adapter 2, puffs, Inhalation, Every 6 hours, PRN, # 18 Gm, Refills 1, Tot. Refills 1, Maintenance, 05/26/2115:26:00 EDT, Aerosol, Route to Pharmacy Electronically, [id number], [facility] #[id number], 157, cm, 05/26/21 15:17:00... Start Date: 05/26/21 Status: Ordered triamcinolone 0.025% topical cream 1 application, Topically, 2 times a day, for 14 days, # 60 Gm, 1 Refills, Acute 09/23/22 10:39:00 EST, 08/26/22 10:39:00 EST, Cream, [facility] #[id number], Partial fill upon patient request if the prescription is for a schedule II opioid drug.,... Start Date: 08/26/22 Stop Date: 09/23/22 Status: Ordered Vaporizer Vaporizer, See Instructions, # [...] mental health services at present. Informed of [facility] services - pt to call office and request services if needed. 2managed by PCP Social History Social History Type Response Smoking Status Never (less than 100 in lifetime); Exposure to Secondhand Smoke: No entered on: 07/28/21 Sex Patient Care team information Care Team Personnel Name: Davina Greer MD, V Position: [facility] Primary Care Physician Member Role: PCP Address: Address: [address] [place] [address]- Care Team Related Persons Name: ЕЛЕНА REBOLLEDO Address: home [address] [place] [address] Name: LAM SMALL Address: home [address] [place] [address] Name: CATALINA CASTLE Address: home [address] [place] [address] Name: TAMMY AGN Address: home [address] [place] [address] Name: KALIE ROSAS Address: [address] Address: home [address] [place] [address] Name: ЕЛЕНА SCHMID Address: home [address] [place] [address]
--- OUTSIDE RECORDS SUMMARY | 2024-06-21 08:18 | XMS_ITS | Continuity of Care Document ---
Author Organization [facility] Address [address] [place] [address]- Care Team Providers Care Senior Actuarial Analyst Name Role Phone Percy BELLE, Davina Aguiar Primary Care Physician Encounter [facility] [place] Date(s): 03/03/20 - 04/02/20 [facility] [address] [place] [address] Attending Physician: Olivia Vaca Admitting Physician: AdmOlivia lewis Referring Physician: AdmtrOlivia Allergies, Adverse Reactions, Alerts Substance Reaction Severity Status NKA Active Immunizations Given and Recorded Vaccine Date Status Refusal Reason Human Papillomavirus Vaccine 06/26/19 Recorded Human Papillomavirus Vaccine 05/08/18 Recorded Influenza Virus Vaccine (oldterm) 06/26/19 Recorde d Influenza Virus Vaccine (oldterm) 06/25/18 Recorde d Poliovirus Vaccine, Inactivated 01/18/19 Recorded Poliovirus Vaccine, Inactivated 03/24/08 Recorded Poliovirus Vaccine, Inactivated 04 Recorded tetanus-diphtheria toxoids (Td) 05/08/18 Recorded Meningococcal Conjugate Vaccine 05/08/18 Recorded Varicella Virus Vaccine 12/05/11 Recorded [...] 01/24/05 Recorded pneumococcal 13-valent vaccine 04 Recorded Problem List Condition Effective Dates Status Health Status Inform ant Obesity, pediatric(Confirmed) Active Cerebral concussion(Confirmed) Active Eczema(Confirmed) Active Menstrual periods irregular(Confirmed) Active Failed vision screen(Confirmed) Active Social History Social History Type Response Smoking Status Never smoker; Tobacc o user in household: No entered on: 02/17/15 Sex
--- OUTSIDE RECORDS SUMMARY | 2024-06-21 08:18 | XMS_ITS | Continuity of Care Document ---
Author Organization [facility] Address [address] [place] [address]- Care Team Providers Care Household Worker Name Role Phone Percy BELLE, Davina Aguiar Primary Care Physician Encounter [facility] [place] Date(s): 10/05/21 - 11/10/[address] [address]- Attending Physician: Karen Donald MD Admitting Physician: Karen Donald MD Referring Physician: Nina Joyner MD Allergies, Adverse Reactions, Alerts No Known Allergies Immunizations Given and Recorded Vaccine Date Status Refusal Reason tetanus/diphtheria/pertussis, acel(Tdap) 09/15/21 Given influenza virus vaccine, [...] 05/26/21 15:26:00 EDT, Route to Pharmacy Electronically, [facility][id number], Partial fill upon patient request if the pr... Start Date: 05/26/21 Status: Ordered famotidine 20 mg oral tablet 20 mg, 1, tablet, By Mouth, Daily at bedtime, # 90 tablet, Refills 1, Tot. Refills 1, Maintenance, 09/29/21 16:45:00 EST, Route to Pharmacy Electronically, [facility] #[id number], Partial fill upon patient request if the prescription is for a miesha... Start Date: 09/29/21 Status: Ordered MiraLax oral powder for reconstitution = 17 Gm, By Mouth, Daily, dissolve in water before taking, # 255 Gm, 0 Refills, Maintenance, 07/16/21 16:52:00 EDT, REC Powder, [facility] #[id number], Partial fill upon patient request if the prescription is for a schedule II opioid drug., 17 Gm... Start Date: 07/16/21 Status: Ordered Multivitamins with Folic Acid 1 mg oral capsule See Instructions, TAKE ONE DAILY BY MOUTH, # 100 capsule, 3 Refills, Maintenance, 05/11/21 14:11:00EDT, [facility] #[id number], Partial fill upon patient request if the prescription is for a schedule II opioid drug., TAKE ONE DAILY BY MOUTH, 157... Start Date: 05/11/21 Status: Ordered ProAir HFA 90 mcg/inh inhalation aerosol with adapter 2, puffs, Inhalation, Every 6 hours, PRN, # 18 Gm, Refills 1, Tot. Refills 1, Maintenance, 05/26/2115:26:00 EDT, Aerosol, Route to Pharmacy Electronically, [id number], [facility] #[id number], 157, cm, 05/26/21 15:17:00... Start Date: 05/26/21 [...] mental health services at present. Informed of [facility] services - pt to call office and request services if needed. 2managed by PCP 3Urine Social History Social History Type Response Smoking Status Never (less than 100 in lifetime); Exposure to Secondhand Smoke: No entered on: 07/28/21 Sex
--- OUTSIDE RECORDS SUMMARY | 2024-06-21 08:18 | XMS_ITS | Continuity of Care Document ---
Author Organization [facility] ter Address [address] [place] [address]- Care Team Providers Care Automotive Hardware Engineer Name Role Phone Vishnu Sun MD Primary Care Physician [phone] [facility] [place] Date(s): 08/04/23 - 08/05/[address] [address]- Discharge Disposition: A-D/C Home Attending Physician: Vipin Schultz MD Admitting Physician: Vipin Schultz MD Referring Physician: Not on Staff, Referring MD Allergies, Adverse Reactions, Alerts No Known Allergies Immunizations Given and Recorded Vaccine Date Status Refusal Reason influenza virus vaccine, inactivated 06/30/23 Give n influenza virus vaccine, inactivated 08/26/22 Give n influenza virus vaccine, inactivated 07/21/21 Give n SARS-CoV-2 mRNA (qkvfxak-[id number]-jtodc) vax 11/21/21 Given tetanus/diphtheria/pertussis, acel(Tdap) 09/15/21 Given [...] opioid drug. Start Date: 02/28/22 Status: Ordered loratadine 10 mg oral tablet 10 mg, 1, tablet, By Mouth, Daily, PRN, # 30 tablet, Refills 2, Tot. Refills 2, Maintenance, Itch, 06/30/23 13:12:00 EDT, Route to Pharmacy Electronically, [facility] #[id number], Partial fill upon patient request if the prescription is for a miesha... Start Date: 06/30/23 Stop Date: 09/28/23 Status: Ordered Motrin Tablet 400 mg, Tablet, By Mouth, Once, STAT, 08/05/23 6:09:00 EST, Stop date 08/05/23 6:09:00 EST Start Date: 08/05/23 Stop Date: 11/18/23 Status: Completed omeprazole 20 mg oral enteric coated capsule 1 capsule, By Mouth, Daily, # 30 capsule, 0 Refills, Maintenance, 09/30/22 12:35:00 EST, [facility] #[id number], 154.5, cm, 08/26/22 9:56:00 EST, Height, 117, kg, 08/26/22 9:56:00 EST, Dry Weight Start Date: 09/30/22 Status: Ordered Multivitamins with Folic Acid 1 mg oral capsule See Instructions, TAKE ONE DAILY BY MOUTH, # 100 capsule, 3 Refills, Maintenance, 05/11/21 14:11:00EDT, [facility] #[id number], Partial fill upon patient request if the prescription is for a schedule II opioid drug., TAKE ONE DAILY BY MOUTH, 157... Start Date: 05/11/21 Status: Ordered ProAir HFA 90 mcg/inh inhalation aerosol with adapter 2, puffs, Inhalation, Every 6 hours, PRN, # 18 Gm, Refills 1, Tot. Refills 1, Maintenance, 05/26/2115:26:00 EDT, Aerosol, Route to Pharmacy Electronically, [id number], [facility] #[id number], 157, cm, 05/26/21 15:17:00... Start Date: 05/26/21 Status: Ordered Protective Ointment with Vitamins A&D topical ointment 1 applicator, Topically, Daily, apply on dry skin, # 120 Gm, 2 Refills, Maintenance, 06/30/23 13:12:00 EDT, [facility] #[id number], Partial fill upon patient request if the prescription is for aschedule II opioid drug., 1 applicator Topically Da... Start Date: 06/30/23 Status: Ordered Vaporizer Vaporizer, See Instructions, # [...] Exam Date Time Procedure Performing Provider Status 08/05/23 8:[address] Abd/Pelvis W/ IV Contrast Only Cheryle Silva; Auth (Verified) Notes: (CT Abd/Pelvis W/ IV Contrast Only) Reason For Exam: right sided abd pain, mild elevated LFTs, s/p cholecystectomy;Other: RESULT: CT Abd/Pelvis W/ IV Contrast Only CT Abd/Pelvis W/ IV Contrast Only Hx of Present Illness: x1 day RLQ pain with N V; Reason: right sided abd pain, mild elevated LFTs, s p cholecystectomy; Clinical Question(s): Appendicitis TECHNIQUE: Spiral CT through the abdomen and pelvis with IV contrast formatted in 3 planes. 100 cc of Omnipaque 300 was administered intravenously. This study was performed without oral contrast. Weight-based protocol using automatic tube modulation was used to optimize exposure parameters. CTDIvol Body: 15.40 mGy, DLP Body: 866 mGy*cm. COMPARISON: CT abdomen and pelvis 08/08/2022 FINDINGS: Commercial Credit Officer View Findings, Lines and Tubes: None. Visualized Chest: Minimal dependent changes at the imaged right lung base. Diaphragm: Normal. Liver: Unremarkable. Gallbladder: Absent consistent with prior cholecystectomy. Bile ducts: No biliary ductal dilation. Spleen: Normal in size. Unchanged nonspecific hypodense lesions measuring up to 1.0 cm (series 201:image 14). Pancreas: Unremarkable. Adrenal glands: Unremarkable. Kidneys and ureters: Unremarkable. Bladder: Unremarkable. Reproductive organs: There is an IUD in place. Stomach, small bowel, and large bowel: In the mid left lower abdomen/upper pelvis there are loops of mid small bowel which demonstrate mild circumferential bowel wall thickening. Appendix: Normal. Peritoneum and retroperitoneum: There is trace free fluid in the pelvis which is within normal physiologic limits. Lymph nodes: No enlarged lymph nodes. Blood vessels: Unremarkable. Abdominal and pelvic wall: There is a tiny fat filled umbilical hernia. Bones: No acute abnormality. IMPRESSION: Mild circumferential bowel wall thickening at the mid small bowel in the lower abdomen/upper pelviswhich may represent mild enteritis. Differential considerations include an infectious or inflammatory etiology. A neoplastic process is less likely but not completely excluded. There is a normal-appearing appendix. I have personally reviewed the images and I agree with this report. WSN: [id number] Ordering Physician: Liberty Mckenzie Dictated By: Alea Daugherty MD Dictated Date/Time: 08/05/23 9:44 am Reviewed By: Madeline Frank MD Signed By: Madeline Frank MD Signed Date/Time: 08/05/23 9:49 am Transcribed By: MALI Transcribed Date/Time: 08/05/23 9:15 am Vital Signs Most recent to oldest [Reference Range]: 1 2 3 Height 155 cm (08/05/23 7:49 AM) 155 cm (08/05/23 2:10 AM) 155 cm (08/04/23 11:51 PM) Weight 115.2 kg (08/05/23 7:49 AM) 115.2 kg (08/05/23 2:10 AM) 115.2 kg (08/04/23 11:51 PM) Oxygen Saturation [94-100 %] 96 % (08/05/23 7:49 AM) 100 % (08/05/23 6:08 AM) 100 % (08/04/23 11:51 PM) Pulse Rate [55-90 bpm] 80 bpm (08/05/23 10:10 AM) 118 bpm *H* (08/05/23 7:49 AM) 122 bpm *H* (08/05/23 6:08 AM) Body Mass Index [18.5-24.99 kg/m2] 47.95 kg/m2 *>HHI* (08/05/23 7:49 AM) 47.95 kg/m2 *>HHI* (08/05/23 2:10 AM) 47.95 kg/m2 *>HHI* (08/04/23 11:51 PM) Blood Pressure [71-110/30-71 mm Hg] 112/61mm Hg *H* (08/05/23 7:49 AM) 120/76mm Hg *H* (08/05/23 6:08 AM) 127/77mm Hg *H* (08/04/23 11:51 PM) Respiratory Rate [16-30 br/min] 20 br/min (08/05/23 7:49 AM) 20 br/min (08/05/23 7:11 AM) 18 br/min (08/05/23 6:08 AM) Temperature [96.8-100.4 DegF] 98.4 DegF (08/05/23 7:49 AM) 98.6 DegF (08/05/23 2:10 AM) 99.0 DegF (08/04/23 11:51 PM) Mode of Delivery (Oxygen) Room air (08/05/23 7:49 AM) Room air (08/05/23 6:08 AM) Room air (08/04/23 11:51 PM) Blood pressure sites Arm, left (08/05/23 7:49 AM) Arm, left (08/05/23 6:08 AM) Arm, left (08/04/23 11:51 PM) Temperature Route Oral (08/05/23 7:49 AM) Oral (08/04/23 11:51 PM) Dry Weight 115.2 kg (08/05/23 7:49 AM) 115.2 kg (08/05/23 2:10 AM) 115.2 kg (08/04/23 11:51 PM) Weight Obtained Via Standing scale (08/04/23 11:51 PM) Dry Weight Obtained Via Standing scale (08/04/23 11:51 PM) Height Percentile 10.20 % 1 (08/05/23 7:49 AM) 10.20 % 2 (08/05/23 2:10 AM) 10.20 % 3 (08/04/23 11:51 PM) Height ZScore -1.27 4 (08/05/23 7:49 AM) -1.27 5 (08/05/23 2:10 AM) -1.27 6 (08/04/23 11:51 PM) Weight Percentile Per Age 99.38 % 7 (08/05/23 7:49 AM) 99.38 % 8 (08/05/23 2:10 AM) 99.38 % 9 (08/04/23 11:51 PM) BMI Percentile 99.25 10 (08/05/23 7:49 AM) 99.25 11 (08/05/23 2:10 AM) 99.25 12 (08/04/23 11:51 PM) BMI ZScore 2.43 13 (08/05/23 7:49 AM) 2.43 14 (08/05/23 2:10 AM) 2.43 15 (08/04/23 11:51 PM) Weight ZScore 2.50 16 (08/05/23 7:49 AM) 2.50 17 (08/05/23 2:10 AM) 2.50 18 (08/04/23 11:51 PM) 1Result Comment: ^~:!Percentile Source -CDC/WHO 2Result Comment: ^~:!Percentile Source -CDC/WHO 3Result Comment: ^~:!Percentile Source -CDC/WHO 4Result Comment: ^~:!ZScore Source -CDC/WHO 5Result Comment: ^~:!ZScore Source -CDC/WHO 6Result Comment: ^~:!ZScore Source -CDC/WHO 7Result Comment: ^~:!Percentile Source -CDC/WHO 8Result Comment: ^~:!Percentile Source -CDC/WHO 9Result Comment: ^~:!Percentile Source -CDC/WHO 10Result Comment: ^~:!Percentile Source -CDC/WHO 11Result Comment: ^~:!Percentile Source -CDC/WHO 12Result Comment: ^~:!Percentile Source -CDC/WHO 13Result Comment: ^~:!ZScore Source -CDC/WHO 14Result Comment: ^~:!ZScore Source -CDC/WHO 15Result Comment: ^~:!ZScore Source -CDC/WHO 16Result Comment: ^~:!ZScore Source -CDC/WHO 17Result Comment: ^~:!ZScore Source -CDC/WHO 18Result Comment: ^~:!ZScore Source -CDC/WHO Social History Social History Type Response Smoking Status Never (less than 100 in lifetime); Exposure to Secondhand Smoke: No entered on: 07/28/21 Sex Note * Liberty Orona: PERFORM Event Display: Patient Education Leaflets Authored Date: [id number] Noninfectious Gastroenteritis (Adult) ?? [id number] Noninfectious Gastroenteritis (Adult) Gastroenteritis can cause nausea, vomiting, diarrhea, and cramping in the belly. This may occur from food sensitivity, inflammation of your??digestive tract, medicines, stress, or other causes not related to infection.??Your symptoms will??usually??last from 1 to 3 days, but can last longer.??Antibiotics don't work against this illness. Simple home treatment will help. Home care Medicine ??? You may use acetaminophen??or NSAID medicines such as ibuprofen or naproxen to control fever, unless another medicine is prescribed. If you have chronic liver or kidney disease, or ever had a stomach ulcer or digestive bleeding, talk with your healthcare provider before using these medicines.)Aspirin should never be used in anyone under 18 years of age who is ill with a fever. It may cause severe liver damage. Don't increase your NSAID medicines if you are already taking these medicines foranother condition such as arthritis. Don't use NSAIDs if you are on aspirin. For example, if you take aspirin for heart disease or after a stroke. ??? If medicines for diarrhea or vomiting??are prescribed, take only as directed. General care and preventing spread of the illness ??? If symptoms are severe, rest at home for the next 24 hours or until you feel better. ??? Washing your hands with soap and clean, running water is the best way to prevent the spread of infection. Wash your hands after touching anyone who is sick. ??? Teach all people in your home when and how towash their hands Wet your hands with clean, running water. Lather soap on the backs of your hands, between your fingers, and under your nails. Scrub your hands for at least 20 seconds. If you need a timer, try humming the Happy Birthday song from beginning to end twice. Rinse your hands well and dry using a clean towel. ??? Wash your hands after using the toilet, touching animals, coughing or sneezing, preparing meals, and before eating meals. ??? Clean the toilet after each use. ??? Caffeine, tobacco, and alcohol can make your diarrhea, cramping, and pain worse. Consider having less or giving up these things until you have recovered. Diet ??? Water and clear liquids are important so you don't get dehydrated. Drink a small amount at a time. ??? Don't force yourself to eat, especially if you have cramps, vomiting, or diarrhea. When you finally decide to start eating, don't eat large amounts at a time, even if you are hungry. ??? If you eat, don't have fatty, greasy, spicy, or fried foods. ??? Don't eat dairy products if you have diarrhea. They can make the diarrhea worse. During the first 24 hours (the first full day), follow the diet below ??? Beverages. Water, clear liquids, soft drinks without caffeine, mineral water (plain or flavored), and decaffeinated tea and coffee. ??? Soups. Clear broth, consomm??, and bouillon. Sports drinks aren't a good choice because they have too much sugar and not enough electrolytes. In this case, useproducts called oral rehydration solutions. ??? Desserts. Plain gelatin, ice pops, and fruit juice bars. During the next 24 hours??(the second day) During the second day, you may add to the above list if you are better. If not, continue what you did the first day. ??? Hot cereal, plain toast, bread, rolls, or crackers ??? Plain noodles, rice, mashed potatoes, orchicken noodle or rice soup ??? Unsweetened canned fruit and bananas. Don't eat pineapple or citrus. ??? Limit caffeine and chocolate. No spices or seasonings except salt. During the next 24 hours ??? Gradually go back to a normal diet, as you feel better and your symptoms improve. ??? If at any time your symptoms start getting worse, go back to clear liquids until youfeel better. ?? Food preparation ??? If you have diarrhea, don't prepare food for others. When you?? prepare food for yourself, wash your hands before and after. ??? Wash your hands after using cutting boards, countertops, and knives that have been in contact with raw food. ??? Keep uncooked meats away from cookedand ejizd-yq-rjt foods. ?? Follow-up care Follow up with your??healthcare provider if you are not improving over the next 2 to 3 days, or as advised. If a stool (diarrhea) sample was taken,??call for the results as directed. ?? Call 911 Call 911 if any of these occur: ??? Trouble breathing ??? Chest pain ??? Confusion ??? Severe drowsiness or trouble awakening ??? Seizure ??? Stiff neck ?? When to seek medical advice Call your healthcare provider right away if any of these occur:? Increasing belly pain or constant lower right belly pain ??? Continued vomiting (unable to keep liquids down) ??? Frequent diarrhea (more than 5 times a day) ??? Blood in vomit or stool (black or red color) ??? Inability to tolerate solid food after a few days. ??? Dark urine, reduced urine output ??? Weakness or dizziness ??? D rowsiness ??? Fever of 100.4??F (38.0??C) or higher, or as directed by your healthcare provider ???New rash ??? Symptoms get worse or you have new symptoms ?? Last Reviewed Date: 2021 ?? 2758-0113 [employer]. All rights reserved. This information is not intended as a substitute for professional medical care. Always follow your healthcare professional's instructions. ?? Patient Care team information Care Team Personnel Name: Vishnu Sun MD Position: [facility] Resident Member Role: PCP Address: Address: [address] [place] [id number] Name: Liberty Orona Position: [facility] Associate Professional Member Role: ED Physician Manager Custom Address: Address: [address] [place] [address]- Name: Snow Ray RN Position: [facility] ED RN W/OE and Tasks Member Role: Patient Care Provider Name: Judy Randle Position: [facility] ED TA [facility] Member Role: Patient Care Provider Name: Vipin Schultz MD Position: [facility] ED Medicine MD Member Role: Admitting Physician Address: Address: [address] [place] [address] Care Team Related Persons Name: LAM REBOLLEDO Address: home [address] [place] [address] Name: ЕЛЕНА REBOLLEDO Address: home [address] [place] [address] Name: LAM SMALL Address: home [address] [place] [address] Name: CATALINA CASTLE Address: home [address] [place] [address] Name: TAMMY ANG Address: home [address] [place] [address] Name: KALIE ROSAS Address: [id number] Address: home [address] [place] [address] Name: ЕЛЕНА SCHMID Address: home [address] [place] [id number]
--- OUTSIDE RECORDS SUMMARY | 2024-06-21 08:18 | XMS_ITS | Continuity of Care Document ---
Author Organization [facility] Address [address] [place] [address]- Care Team Providers Care Electrical Prospecting Operator Name Role Phone Davina Greer MD, V Primary Care Physician Encounter [facility] Date(s): 07/26/22 - 08/25/22 [facility] [address]- [place] Allergies, Adverse Reactions, Alerts No Known Allergies Immunizations Given and Recorded Vaccine Date Status Refusal Reason SARS-CoV-2 mRNA ([id number]) vax 11/21/21 Given tetanus/diphtheria/pertussis, acel(Tdap) 09/15/21 Given [...] opioid drug. Start Date: 02/28/22 Status: Ordered Multivitamins with Folic Acid 1 mg oral capsule See Instructions, TAKE ONE DAILY BY MOUTH, # 100 capsule, 3 Refills, Maintenance, 05/11/21 14:11:00EDT, [facility] #[id number], Partial fill upon patient request if the prescription is for a schedule II opioid drug., TAKE ONE DAILY BY MOUTH, 157... Start Date: 05/11/21 Status: Ordered ProAir HFA 90 mcg/inh inhalation aerosol with adapter 2, puffs, Inhalation, Every 6 hours, PRN, # 18 Gm, Refills 1, Tot. Refills 1, Maintenance, 05/26/2115:26:00 EDT, Aerosol, Route to Pharmacy Electronically, [id number], [facility] #[id number], 157, cm, 05/26/21 15:17:00... Start Date: 05/26/21 [...] Confirmed Active H/O Irregular Menses Confirmed Active 1not engaged with mental health [...] Personnel Name: Davina Greer MD, V Position: [facility] Primary Care Physician Member Role: PCP Address: Address: [address] [place] [address]- [place] Care Team Related Persons Name: ЕЛЕНА REBOLLEDO Address: home [address] [place] [address] Name: LAM SMALL Address: home [address] [place] [address] Name: CATALINA CASTLE Address: home [address] [place] [address] Name: TAMMY ANG Address: home [facility] [place] [address] Name: KALIE ROSAS Address: [id number] Address: home [address] [place] [address] [place] Name: ЕЛЕНА SCHMID Address: home [address] [place] [address]
--- OUTSIDE RECORDS SUMMARY | 2024-06-21 08:18 | XMS_ITS | Continuity of Care Document ---
Author Organization [facility] Address [address] [place] [address]- Care Team Providers Care Scaler Name Role Phone Percy BELLE, Davina Aguiar Primary Care Physician En[facility] Date(s): 11[facility]17[facility] [address], [address] [place] [address]- Allergies, Adverse Reactions, Alerts No Known Allergies Immunizations Given and Recorded Vaccine Date Status Refusal Reason SARS-CoV-2 mRNA ([id number]-[id number]) vax 11/21/21 Given tetanus/diphtheria/pertussis, acel(Tdap) 09/15/21 Given [...] 05/26/21 15:26:00 EDT, Route to Pharmacy Electronically, [facility][id number], Partial fill upon patient request if the pr... Start Date: 05/26/21 Status: Ordered Depo-Provera Inj = 150 mg, Intramuscular, Once, 0 Refills, Maintenance Start Date: 11/21/21 Status: Ordered famotidine 20 mg oral tablet 20 mg, 1, tablet, By Mouth, Daily at bedtime, # 90 tablet, Refills 1, Tot. Refills 1, Maintenance, 09/29/21 16:45:00 EST, Route to Pharmacy Electronically, [facility] #[id number], Partial fill upon patient request if the prescription is for a miesha... Start Date: 09/29/21 Status: Ordered ibuprofen 400 mg oral tablet 400 mg, 1, tablet, By Mouth, Every 4 hours, PRN, for 5 days, # 30 tablet, Refills 0, Tot. Refills 0, Acute 12/21/21 11:58:00 EDT, for pain, 12/16/21 11:58:00 EDT, Route to Pharmacy Electronically, [facility], Partial fill upon patient re... Start Date: 12/16/21 Stop Date: 12/21/21 Status: Ordered MiraLax oral powder for reconstitution = 17 Gm, By Mouth, Daily, dissolve in water before taking, # 255 Gm, 0 Refills, Maintenance, 07/16/21 16:52:00 EDT, REC Powder, [facility] #[id number], Partial fill upon patient request if the prescription is for a schedule II opioid drug., 17 Gm... Start Date: 07/16/21 Status: Ordered oxyCODONE 5 mg oral tablet 5 mg, 1, tablet, By Mouth, Every 6 hours, PRN, for 3 days, # 5 tablet, Refills 0, Tot. Refills 0, Acute 12/18/21 19:10:00 EDT, Pain , Severe, 12/15/21 19:10:00 EDT, Route to Pharmacy Electronically, [facility] #[id number], Partial fill upon patie... Start Date: 12/15/21 Stop Date: 12/18/21 Status: Ordered Multivitamins with Folic Acid 1 mg oral capsule See Instructions, TAKE ONE DAILY BY MOUTH, # 100 capsule, 3 Refills, Maintenance, 05/11/21 14:11:00EDT, [facility] #[id number], Partial fill upon patient request if the prescription is for a schedule II opioid drug., TAKE ONE DAILY BY MOUTH, 157... Start Date: 05/11/21 Status: Ordered ProAir HFA 90 mcg/inh inhalation aerosol with adapter 2, puffs, Inhalation, Every 6 hours, PRN, # 18 Gm, Refills 1, Tot. Refills 1, Maintenance, 05/26/2115:26:00 EDT, Aerosol, Route to Pharmacy Electronically, [id number], [facility] #[id number], 157, cm, 05/26/21 15:17:00... Start Date: 05/26/21 Status: Ordered Tylenol 325 mg oral tablet 650 mg, 2, tablet, By Mouth, Every 4 hours, PRN, for 5 days, # 50 tablet, Refills 0, Tot. Refills 0, Acute 12/21/21 11:56:00 EDT, Pain , Mild, 12/16/21 11:56:00 EDT, Route to Pharmacy Electronically,[facility], Partial fill upon patient... Start Date: 12/16/21 Stop Date: 12/21/21 Status: Ordered Vaporizer Vaporizer, See Instructions, # [...] mental health services at present. Informed of [facility] services - pt to call office and request services if needed. 2managed by PCP 3Urine Social History Social History Type Response Smoking Status Never (less than 100 in lifetime); Exposure to Secondhand Smoke: No entered on: 07/28/21 Sex
--- OUTSIDE RECORDS SUMMARY | 2024-06-21 08:18 | XMS_ITS | Continuity of Care Document ---
Author Organization [facility] Address Unknown Care Team Providers Care Digital Cartographic Technician Name Role Phone Davina Greer MD, V Primary Care Physician Encounter [facility] Date(s): 07/28/21 - 08/27/21 [facility] Attending Physician: Olivia Vaca Admitting Physician: Olivia Vaca Referring Physician: Olivia Vaca Allergies, Adverse Reactions, Alerts Substance Reaction Severity Status NKA Active Immunizations Given and Recorded Vaccine Date Status Refusal Reason influenza virus vaccine, inactivated 07/21/21 Give n [...] Recorded pneumococcal 13-valent vaccine 04 Recorded Medications bisacodyl 10 mg rectal suppository See Instructions, PRN for constipation, 1 supp Rectally Daily as needed for constipation, # 10 supp, 0 Refills, Maintenance, 08/19/21 16:09:00 EST, Suppository, [facility] #[id number], Partial fill upon patient request if the prescription is for... Start Date: 08/19/21 Status: Ordered Colace sodium 100 mg oral capsule 100 mg, 1, capsule, By Mouth, 2 times a day, PRN, # 60 capsule, Refills 1, Tot. Refills 1, Maintenance, for constipation, 05/26/21 15:26:00 EDT, Route to Pharmacy Electronically, [facility]#[id number], Partial fill upon patient request if the pr... Start Date: 05/26/21 Status: Ordered MiraLax oral powder for reconstitution = 17 Gm, By Mouth, Daily, dissolve in water before taking, # 255 Gm, 0 Refills, Maintenance, 07/16/21 16:52:00 EDT, REC Powder, [facility] #[id number], Partial fill upon patient request if the prescription is for a schedule II opioid drug., 17 Gm... Start Date: 07/16/21 Status: Ordered petrolatum topical 100% ointment See Instructions, Apply on dry skin BID for one month, # 450 Gm, 11 Refills, Maintenance, 07/28/21 17:16:00 EST, [facility] #[id number], Partial fill upon patient request if the prescription is for a schedule II opioid drug., Apply on dry skin BI... Start Date: 07/28/21 Status: Ordered Multivitamins with Folic Acid 1 mg oral capsule See Instructions, TAKE ONE DAILY BY MOUTH, # 100 capsule, 3 Refills, Maintenance, 05/11/21 14:11:00EDT, [facility] #[id number], Partial fill upon patient request if the prescription is for a schedule II opioid drug., TAKE ONE DAILY BY MOUTH, 157... Start Date: 05/11/21 Status: Ordered ProAir HFA 90 mcg/inh inhalation aerosol with adapter 2, puffs, Inhalation, Every 6 hours, PRN, # 18 Gm, Refills 1, Tot. Refills 1, Maintenance, 05/26/2115:26:00 EDT, Aerosol, Route to Pharmacy Electronically, [id number], [facility] #[id number], 157, cm, 05/26/21 15:17:00... Start Date: 05/26/21 Status: Ordered triamcinolone 0.1% topical lotion See Instructions, Topically 2 times a day apply a thin film to affected area, # 60 mL, 0 Refills, Maintenance, 07/16/21 16:51:00 EDT, Lotion, [facility] #[id number], Partial fill upon patient request if the prescription is for a schedule II opi... Start Date: 07/16/21 Status: Ordered Vaporizer Vaporizer, See Instructions, # [...] health services at present. Informed of [facility] services - pt to call office and request services if needed. 2managed by PCP 3[facility] Social History Social History Type Response Smoking Status Never (less than 100 in lifetime); Exposure to Secondhand Smoke: No entered on: 07/28/21 Sex
--- OUTSIDE RECORDS SUMMARY | 2024-06-21 08:18 | XMS_ITS | Continuity of Care Document ---
Author Organization [facility] Address [address] [place] [address]- Care Team Providers Care Executive Account Manager Name Role Phone Vishnu Sun MD Primary Care Physician Encounter [facility] Date(s): 12/25/23 - 01/24/[address] [address] Attending Physician: Olivia Vaca Admitting Physician: Olivia Vaca Referring Physician: AdmtrOlivia Allergies, Adverse Reactions, Alerts No Known Allergies Immunizations Given and Recorded Vaccine Date Status Refusal Reason Meningococcal Conjugate Vaccine 08/28/23 Given Meningococcal Conjugate Vaccine 05/08/18 Recorded Hepatitis A Adult Vaccine 08/28/23 Given influenza virus vaccine, inactivated 06/30/23 Give n influenza virus vaccine, inactivated 08/26/22 Give n influenza virus vaccine, inactivated 07/21/21 Give n SARS-CoV-2 mRNA ([id number]) vax 11/21/21 Given tetanus/diphtheria/pertussis, acel(Tdap) 09/15/21 Given [...] 08/28/23 15:23:00 EST, Route to Pharmacy Electronically, [facility] #[id number], Partial fill upon patient request if the prescri... Start Date: 08/28/23 Status: Ordered fluticasone 50 mcg/inh nasal spray See Instructions, SHAKE LIQUID AND USE 1 SPRAY IN EACH NOSTRIL DAILY SHAKE WELL BEFORE USING, # 16 Gm, 11 Refills, Maintenance, 09/29/23 17:26:00 EST, [facility] #[id number], 30, SHAKE LIQUID AND USE 1 SPRAY IN EACH NOSTRIL DAILY SHAKE WELL BEFOR... Start Date: 09/29/23 Status: Ordered loratadine 10 mg oral tablet 10 mg, 1, tablet, By Mouth, Daily, PRN, # 30 tablet, Refills 2, Tot. Refills 2, Maintenance, Itch, 09/28/23 13:12:00 EST, Route to Pharmacy Electronically, [facility] #[id number], Partial fill upon patient request if the prescription is for a miesha... Start Date: 09/28/23 Stop Date: 12/27/23 Status: Ordered omeprazole 20 mg oral enteric coated capsule 1 capsule, By Mouth, Daily, # 14 capsule, 0 Refills, Maintenance, 09/12/23 18:52:00 EST, [facility] #[id number], 156, cm, 08/28/23 14:14:00 EST, Height, 114.3, kg, 08/28/23 14:14:00 EST, Dry Weight Start Date: 09/12/23 Stop Date: 09/26/23 Status: Ordered predniSONE 20 mg oral tablet See Instructions, 3 tab PO one time , then 2 tab PO one time a day for 4 days., # 11 tablet, 0 Refills, Maintenance, 08/28/23 15:19:00 EST, [facility] #[id number], Partial fill upon patient request if the prescription is for a schedule II opioid... Start Date: 08/28/23 Status: Ordered Protective Ointment with Vitamins A&D topical ointment 1 applicator, Topically, Daily, apply on dry skin, # 120 Gm, 2 Refills, Maintenance, 06/30/23 13:12:00 EDT, [facility] #[id number], Partial fill upon patient request if the [...] mental health services at present. Informed of [facility] services - pt to call office and request services if needed. 2managed by PCP Social History Social History Type Response Smoking Status Never (less than 100 in lifetime); Exposure to Secondhand Smoke: No entered on: 07/28/21 Sex Patient Care team information Care Team Personnel Name: Vishnu Sun MD Position: S Resident Member Role: PCP Address: Address: [address] [place] [address]- Care Team Related Persons Name: LAM REBOLLEDO Address: home [address] [place] [address] Name: ЕЛЕНА REBOLLEDO Address: home [address] [place] [address] Name: LAM SMALL Address: home [address] [place] [address] Name: CATALINA CASTLE Address: home [address] [place] [address] Name: TAMMY ANG Address: home [address] [place] [address] Name: KALIE ROSAS Address: [address] Address: home [address] [place] [address] Name: ЕЛЕНА SCHMID Address: home [address] [place] [address]
--- OUTSIDE RECORDS SUMMARY | 2024-06-21 08:18 | XMS_ITS | Continuity of Care Document ---
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 Name Role Phone Davina Greer MD, V Primary Care Physician [place] [facility] [place] - 08/08/[address] [address]- Encounter Diagnosis Abdominal pain(Final) - 08/08/22 Discharge Disposition: A-D/C Home Attending Physician: Pankaj Strauss MD Admitting Physician: Pankaj Strauss MD Referring Physician: Not on Staff, Referring MD Allergies, Adverse Reactions, Alerts No Known Allergies Immunizations Given and Recorded Vaccine Date Status Refusal Reason SARS-CoV-2 mRNA (binqosx-ildo-hoymd) vax 11/21/21 Given tetanus/diphtheria/pertussis, acel(Tdap) 09/15/21 Given [...] 100 capsule, 3 Refills, Maintenance, 05/11/21 14:11:00EDT, [id number], Partial fill upon patient request if the prescription is for a schedule II opioid drug., TAKE ONE DAILY BY MOUTH, 157... Start Date: 05/11/21 Status: Ordered ProAir HFA 90 mcg/inh inhalation aerosol with adapter 2, puffs, Inhalation, Every 6 hours, PRN, # 18 Gm, Refills 1, Tot. Refills 1, Maintenance, 05/26/2115:26:00 EDT, Aerosol, Route to Pharmacy Electronically, [id number], [facility] #[id number], 157, cm, 05/26/21 15:17:00... Start Date: 05/26/21 [...] mental health services at present. Informed of [facility] services - pt to call office and request services if needed. 2managed by PCP Results Radiology Reports * Exam Date Time Procedure Performing Provider Status 08/08/22 12:17 AM Chest 2 Views Fronta l and Lat Maia Martell; Auth (Verified) Notes: (Chest 2 Views Frontal and Lat) Reason For Exam: Shortness of Breath, Fever;Other: RESULT: Chest 2 Views Frontal and Lat Chest 2 Views Frontal and Lat Hx of Present Illness: pt from home w 4 days of R sided abd pain w vomiting that started today; pt reports fever last night; pt reports constipation today; Reason: Other:; Shortness of Breath, Fever;Clinical Question(s): Pneumonia COMPARISON: None FINDINGS: LINES AND TUBES: None. LUNGS AND PLEURA: Low lung volumes and bibasilar atelectasis. No focal consolidation. No pleural effusion. No pneumothorax. HEART, MEDIASTINUM AND DANIEL: Normal. BONES AND SOFT TISSUES: Normal. IMPRESSION: No acute cardiopulmonary process. WSN: [id number] Ordering Physician: Javi Montana Dictated By: Hudson Benton MD Dictated Date/Time: 08/08/22 7:43 am Reviewed By: Hudson Benton MD Signed By: Hudson Benton MD Signed Date/Time: 08/08/22 7:43 am Transcribed By: MALI Transcribed Date/Time: 08/08/22 7:41 am * Exam Date Time Procedure Performing Provider Status 08/08/22 4:[address] Abd/Pelvis W/ IV + Oral Contrast Ab Christianson (Verified) Notes: (CT Abd/Pelvis W/ IV + Oral Contrast) Reason For Exam: Generalized Abdominal Pain r/o Appendicitis;Other: RESULT: CT Abd/Pelvis W/ IV + Oral Contrast CT Abd/Pelvis W/ IV + Oral Contrast Hx of Present Illness: 4 days of right-sided abdominal pain. Vomiting reported today. Reason: Rightabdominal pain. Clinical Question(s): Appendicitis. TECHNIQUE: Spiral CT through the abdomen and pelvis with IV contrast formatted in 3 planes. 100 cc of Omnipaque 300 was administered intravenously. This study was performed with oral contrast. Weight-based protocol using automatic tube modulation was used to optimize exposure parameters. CTDIvol Body: 15.20 mGy, DLP Body: 900 mGy*cm. COMPARISON: Right upper quadrant ultrasound 12/15/2021. Appendix and pelvic ultrasound 08/07/2022 FINDINGS: Visualized Chest: Lung bases are clear. No pleural effusion. The heart is normal in size. No pericardial effusion. Diaphragm: Normal. Liver: Normal. Gallbladder: No gallbladder identified, consistent with prior cholecystectomy. Bile ducts: No biliary ductal dilation. Spleen: Normal. Pancreas: Normal. Adrenal glands: Normal. Kidneys and ureters: No hydronephrosis, stones, or suspicious masses. Bladder: Normal. Reproductive organs: An IUD appears well positioned within the endometrial cavity. Stomach, small bowel, and large bowel: Stomach is normal. No evidence of bowel obstruction. No inflammatory changes. Appendix: The appendix is not visualized. There is trace fluid is noted abutting the cecum in the right lower quadrant and in the expected region of the appendix. No adjacent fat stranding. Peritoneum and retroperitoneum: No pneumoperitoneum. No omental or mesenteric lesions. Lymph nodes: No enlarged lymph nodes. Blood vessels: Normal. No aneurysm. No evidence of venous thrombosis. Abdominal and pelvic wall: Unremarkable. Bones: No acute abnormality. IMPRESSION: Trace fluid in the right lower quadrant abutting the cecum with no definite appendix visualized andno adjacent fat stranding. Findings are nonspecific with no definitive evidence of acute appendicitis, however, an early appendicitis cannot be completely excluded. Dr. Mary Jane Campbell discussed the above findings with ED provider THIAGO Montana via phone on 08/08/2022 at 4:58 AM. I have personally reviewed the images and I agree with this report. WSN: [id number] Ordering Physician: Javi Montana Dictated By: Mary Jane Campbell DO Dictated Date/Time: 08/08/22 8:08 am Reviewed By: Bailee Humphrey MD Signed By: Bailee Humphrey MD Signed Date/Time: 08/08/22 8:13 am Transcribed By: MALI Transcribed Date/Time: 08/08/22 5:00 am * Exam Date Time Procedure Performing Provider Status 08/07/22 10:51 PM US Appendix Curtis Morocho; Poppy (V erified) Notes: (US Appendix) Reason For Exam: Abdominal Pain;Other: RESULT: US Appendix US Appendix Hx of Present Illness: pt from home w 4 days of R sided abd pain w vomiting that started today; pt reports fever last night; pt reports constipation today; Reason: Other:; Abdominal Pain; Clinical Question(s): Appendicitis COMPARISON: Concurrent pelvic ultrasound. IMAGING TECHNIQUE: High-resolution graded compression sonography was performed using a linear arraytransducer at the expected locations of the appendix and at the patient's maximal point of tenderness. FINDINGS: Appendix: The appendix is not visualized. Right lower quadrant bowel loops are normal in caliber. No focal bowel wall thickening or inflammatory change at the site of maximal tenderness. Fluid: Small amount of free fluid in the right lower quadrant. Abscess: No abscess or organized fluid collection. Lymph nodes: No regional lymphadenopathy. Additional findings: None. IMPRESSION: Appendix could not be visualized with ultrasound. This limits the usefulness of this exam at excluding appendicitis. There is a small amount of nonspecific free fluid in the RLQ. A normal right ovaryis seen on concurrent pelvic ultrasound. WSN: [id number] Ordering Physician: Marta Cavazos Dictated By: Greg Jenkins MD Dictated Date/Time: 08/07/22 10:55 p Reviewed By: Greg Jenkins MD Signed By: Greg Jenkins MD Signed Date/Time: 08/07/22 10:55 pm Transcribed By: MALI Transcribed Date/Time: 08/07/22 10:53 pm * Exam Date Time Procedure Performing Provider Status 08/07/22 10:51 PM US Pelvic Doppler Comp Duncan Morocho; Auth (Verified) Notes: (US Pelvic Doppler Comp) Reason For Exam: Pelvic Pain;Other: RESULT: US Pelvic Doppler Comp US Pelvic Transabdominal, US Pelvic Doppler Comp Hx of Present Illness: Patient reports 4 days of right-sided abdominal pain and vomiting starting today. Reason: Pelvic Pain. Clinical Question(s): Ovarian torsion. COMPARISON: Transabdominal pelvic ultrasound 01/13/2021 TECHNIQUE: Transabdominal pelvic ultrasound with grayscale, color Doppler, and spectral Doppler analysis. FINDINGS: UTERUS: Size: 8.1 x 3.3 x 5.0 cm, volume 69.6 cc. Endometrial thickness: 0.3 cm. An IUD is in place and appears well positioned within the endometrial cavity. Morphology: Normal configuration and echotexture. RIGHT OVARY: Size: 3.1 x 2.2 x 2.7 cm, volume 9.6 cc. Morphology: Normal echotexture. No pathologic cysts or mass. Normal arterial and venous waveforms. LEFT OVARY: Size: 2.8 x 1.7 x 2.2 cm, volume 5.6 cc. Morphology: Normal echotexture. No pathologic cysts or mass. Normal arterial and venous waveforms. ADNEXA: Trace free fluid in the cul-de-sac, likely physiologic. Free fluid in the pelvic cul-de-sac IMPRESSION: No evidence of an ovarian torsion. An IUD is noted and appears well-positioned within the endometrial cavity. I have personally reviewed the images and I agree with this report. WSN: [id number] Ordering Physician: Marta Cavazos Dictated By: Mary Jane Campbell DO Dictated Date/Time: 08/07/22 10:52 p Reviewed By: Greg Jenkins MD Signed By: Greg Jenkins MD Signed Date/Time: 08/07/22 10:57 pm Transcribed By: MALI Transcribed Date/Time: 08/07/22 10:48 pm * Exam Date Time Procedure Performing Provider Status 08/07/22 10:51 PM US Pelvic Transabdominal Carrington Morocho; Auth (Verified) Notes: (US Pelvic Transabdominal) Reason For Exam: Pelvic Pain;Other: RESULT: US Pelvic Transabdominal US Pelvic Transabdominal, US Pelvic Doppler Comp Hx of Present Illness: Patient reports 4 days of right-sided abdominal pain and vomiting starting today. Reason: Pelvic Pain. Clinical Question(s): Ovarian torsion. COMPARISON: Transabdominal pelvic ultrasound 01/13/2021 TECHNIQUE: Transabdominal pelvic ultrasound with grayscale, color Doppler, and spectral Doppler analysis. FINDINGS: UTERUS: Size: 8.1 x 3.3 x 5.0 cm, volume 69.6 cc. Endometrial thickness: 0.3 cm. An IUD is in place and appears well positioned within the endometrial cavity. Morphology: Normal configuration and echotexture. RIGHT OVARY: Size: 3.1 x 2.2 x 2.7 cm, volume 9.6 cc. Morphology: Normal echotexture. No pathologic cysts or mass. Normal arterial and venous waveforms. LEFT OVARY: Size: 2.8 x 1.7 x 2.2 cm, volume 5.6 cc. Morphology: Normal echotexture. No pathologic cysts or mass. Normal arterial and venous waveforms. ADNEXA: Trace free fluid in the cul-de-sac, likely physiologic. Free fluid in the pelvic cul-de-sac IMPRESSION: No evidence of an ovarian torsion. An IUD is noted and appears well-positioned within the endometrial cavity. I have personally reviewed the images and I agree with this report. WSN: [id number] Ordering Physician: Marta Cavazos Dictated By: Mary Jane Campbell DO Dictated Date/Time: 08/07/22 10:52 p Reviewed By: Greg Jenkins MD Signed By: Greg Jenkins MD Signed Date/Time: 08/07/22 10:57 pm Transcribed By: MALI Transcribed Date/Time: 08/07/22 10:48 pm Vital Signs Most recent to oldest [Reference Range]: 1 2 3 Weight 115.7 kg (08/08/22 1:38 AM) 115.7 kg (08/07/22 11:49 PM) 115.7 kg (08/07/22 10:23 PM) Oxygen Saturation [94-100 %] 100 % (08/08/22 4:50 AM) 99 % (08/08/22 1:38 AM) 99 % (08/07/22 11:49 PM) Pulse Rate [55-90 bpm] 85 bpm (08/08/22 4:50 AM) 89 bpm (08/08/22 1:38 AM) 85 bpm (08/07/22 11:49 PM) Blood Pressure [80-130/50-80 mm Hg] 109/67mm Hg (08/08/22 4:50 AM) 109/69mm Hg (08/08/22 1:38 AM) 93/56mm Hg (08/07/22 11:49 PM) Respiratory Rate [16-30 br/min] 20 br/min (08/08/22 4:50 AM) 20 br/min (08/08/22 1:38 AM) 20 br/min (08/07/22 11:49 PM) Temperature [96.8-100.4 DegF] 98.6 DegF (08/08/22 4:50 AM) 98.6 DegF (08/08/22 1:38 AM) 98.5 DegF (08/07/22 11:49 PM) Mode of Delivery (Oxygen) Room air (08/08/22 4:50 AM) Room air (08/08/22 1:38 AM) Room air (08/07/22 11:49 PM) Blood pressure sites Arm, left (08/08/22 4:50 AM) Arm, left (08/08/22 1:38 AM) Arm, right (08/07/22 11:49 PM) Temperature Route Oral (08/08/22 4:50 AM) Oral (08/08/22 1:38 AM) Oral (08/07/22 11:49 PM) Dry Weight 115.7 kg (08/08/22 1:38 AM) 115.7 kg (08/07/22 11:49 PM) 115.7 kg (08/07/22 10:23 PM) Weight Obtained Via Standing scale (08/07/22 8:06 PM) Dry Weight Obtained Via Standing scale (08/07/22 8:06 PM) Weight Percentile Per Age 99.35 % 1 (08/08/22 1:38 AM) 99.35 % 2 (08/07/22 11:49 PM) 99.35 % 3 (08/07/22 10:23 PM) Weight ZScore 2.48 4 (08/08/22 1:38 AM) 2.48 5 (08/07/22 11:49 PM) 2.48 6 (08/07/22 10:23 PM) 1Result Comment: ^~:!Percentile Source -CDC/WHO 2Result Comment: ^~:!Percentile Source -CDC/WHO 3Result Comment: ^~:!Percentile Source -CDC/WHO 4Result Comment: ^~:!ZScore Source -CDC/WHO 5Result Comment: ^~:!ZScore Source -CDC/WHO 6Result Comment: ^~:!ZScore Source -CDC/WHO Social History Social History Type Response Smoking Status Never (less than 100 in lifetime); Exposure to Secondhand Smoke: No entered on: 07/28/21 Sex Note * Javi Schilling: PERFORM Event Display: Patient Education Leaflets Authored Date: [id number] Abdominal Pain with Unknown Cause, Female (Child) ?? [id number] Abdominal Pain with Unknown Cause, Female (Child) Belly (abdominal) pain is common in children. But children often don't??complain of pain because they don't have the words to??describe what is??wrong. They have trouble showing where it hurts. Oftenthey just feel bad or don't want to eat. This can make abdominal pain hard to diagnose in young children. Abdominal symptoms also are linked with many problems. Most of the time, the cause of abdominal pain in children is not serious and will go away. Over the next few days, abdominal pain may come and go or be continuous. It may be hard to decide whether a child has pain or is feeling something else. Abdominal pain may be accompanied by nausea and vomiting,??constipation, diarrhea, or fever. Sometimes it can be hard to tell whether children feel nauseated because they just feel bad. A??child may constantly touch their stomach or show pain when the stomach is touched. Abdominal??pain may continue even when being treated correctly. Sometimes the cause can become clearer over the next few days and may require further or different treatment. Additional tests or medicines may be needed. Sometimes viruses or bacteria can cause an infection that causes stomach pain. But not all stomach infections should be treated with antibiotics. Taking antibiotics for reasons other than a bacterialinfection can cause problems. Lab tests and X-rays may be done in the emergency room (ER) to find the cause of pain. But they arenot always needed to diagnose or treat your child. Home care Your healthcare provider??may prescribe medicine for pain and symptoms of infection. Follow the instructions for giving these medicines to your child. General care ??? Comfort your child as needed. ??? Try to find positions that ease your child???s discomfort. A small pillow placed on the abdomen may help provide pain relief. ??? Distraction may also help. Somechildren are soothed by listening to music or having someone read to them. ??? Offer emotional support to your child. Pain can trigger some intense, negative emotions, including anger. ??? Relaxationtechniques and behavioral therapy can be helpful if the pain becomes chronic. ??? Lying down with awarm wash cloth on the stomach may help improve symptoms. ??? Have your child sit on the toilet regularly. ??? Don't give medicine for abdominal pain or cramps unless instructed by your healthcare pro vider. Diet ??? Don't force your child to eat, especially if they are having pain, vomiting, or diarrhea. Think of what would make you feel better or worse. The same probably goes for your child. ??? Water is important to prevent dehydration. Soup, popsicles, or oral rehydration solution may help. Give liq uids in small amounts. Don't let your child guzzle it down,which may make them feel worse. ??? Don't give your child fatty, greasy, spicy, or fried foods. ??? Don't give your child high-fiber foods that are high in residue during the pain episodes. ??? Don't give your child dairy products if??they have diarrhea. ??? Don't let your child eat large amounts of food at one time, even if they are hungry. Wait a few minutes between bites and offer more if tolerated. ?? Follow-up care Follow up with your child's healthcare provider or??as advised. If tests or studies were done, you'll be notified of any new findings that may affect your child???s care. If the pain becomes chronic, your child's provider may advise behavioral therapies. This might be seeing a therapist, learning relaxation techniques, and trying to maintain a child's normal activities. ?? Special notes to parents Keep a record of symptoms, such as vomiting, diarrhea, or fever. This may help the provider make a diagnosis. ?? Call 911 Call 911 if any of these occur: ??? Trouble breathing ??? Difficulty awakening ??? Fainting or lossof awareness ??? Rapid heart rate ??? Seizure ?? When to seek medical advice Call your child's healthcare provider right away??if any of these occur: ??? Fever (see Fever and children below) ??? Your baby is fussy or cries and can't be soothed ??? Continuing symptoms, such assevere abdominal pain, bleeding, painful or bloody urination, nausea and vomiting, constipation, ordiarrhea ??? Abdominal swelling ??? Vaginal discharge or bleeding that is unrelated to menstruation??? Your child can't keep down water or clear liquids. They are at risk for dehydration and need medical help right away. ??? Missed periods. Don't be surprised if the provider does a test on any girl above the age of menstruation. This is simply part of the evaluation. ??? Severe pain lasting more than 1 hour ??? Constant pain lasting more than 2 hours ??? Crampy, intermittent pain lasting more than 24 hours ??? Pain in the lower right side of the abdomen ??? Your child starts actingvery sick ?? Fever and children Use a digital thermometer to check your child???s temperature. Don???t use a mercury thermometer. There are different kinds and uses of digital thermometers. They include: ??? Rectal. For children younger than 3 years, a rectal temperature is the most accurate. ??? Forehead (temporal). This works for children age 3 months and older. If a child under 3 months old has signs of illness, this can be used for a first pass. The provider may want to confirm with a rectal temperature. ??? Ear (tympanic). Ear temperatures are accurate after 6 months of age, but not before. ??? Armpit (axillary). This is the least reliable but may be used for a first pass to check a child of any age with signs of illness. The provider may want to confirm with a rectal temperature. ??? Mouth (oral). Don???t use a thermometer in your child???s mouth until he or she is at least 4 years old. Use the rectal thermometer with care. Follow the product maker???s directions for correct use. Insert it gently. Label it and make sure it???s not used in the mouth. It may pass on germs from the stool. If you don???t feel OK using a rectal thermometer, ask the healthcare provider what type to use instead. When you talk with any healthcare provider about your child???s fever, tell him or her which type you used. Below are guidelines to know if your young child has a fever. Your child???s healthcare provider may give you different numbers for your child. Follow your provider???s specific instructions. Fever readings for a baby under 3 months old: ??? First, ask your child???s healthcare provider how you should take the temperature. ??? Rectal or forehead: 100.4??F (38??C) or higher ??? Armpit: 99??F (37.2??C) or higher Fever readings for a child age 3 months to 36 months (3 years): ??? Rectal, forehead, or ear: 102??F (38.9??C) or higher ??? Armpit: 101??F (38.3??C) or higher Call the healthcare provider in these cases: ??? Repeated temperature of 104??F (40??C) or higher in a child of any age ??? Fever of 100.4?? (38??C) or higher in baby younger than 3 months ??? Fever that lasts more than 24 hours in a child under age 2 ??? Fever that lasts for 3 days in a child age 2 or older ?? Last Reviewed Date: 2021 ?? 8959-2209 [employer] All rights reserved. This information is not intended as a substitute for professional medical care. Always follow your healthcare professional's instructions. ?? * [employer] , CIS S: TRANSCRIBE Serenity BELLE, Hudson: VERIFY Event Display: Result: Authored Date: [id number] Chest 2 Views Frontal and Lat Hx of Present Illness: pt from home w 4 days of R sided abd pain w vomiting that started today; pt reports fever last night; pt reports constipation today; Reason: Other:; Shortness of Breath, Fever;Clinical Question(s): Pneumonia COMPARISON: None FINDINGS: LINES AND TUBES: None. LUNGS AND PLEURA: Low lung volumes and bibasilar atelectasis. No focal consolidation. No pleural effusion. No pneumothorax. HEART, MEDIASTINUM AND DANIEL: Normal. BONES AND SOFT TISSUES: Normal. IMPRESSION: No acute cardiopulmonary process. WSN: [id number] Ordering Physician: Javi Montana Dictated By: Hudson Benton MD Dictated Date/Time: 08/08/22 7:43 am Reviewed By: Hudson Benton MD Signed By: Hudson Benton MD Signed Date/Time: 08/08/22 7:43 am Transcribed By: MALI Transcribed Date/Time: 08/08/22 7:41 am * [employer] , CIS S: TRANSCRIBE Greg Jenkins MD: VERIFY Mary Jane Campbell DO: SIGN Event Display: Result: Authored Date: [id number] US Pelvic Transabdominal, US Pelvic Doppler Comp Hx of Present Illness: Patient reports 4 days of right-sided abdominal pain and vomiting starting today. Reason: Pelvic Pain. Clinical Question(s): Ovarian torsion. COMPARISON: Transabdominal pelvic ultrasound 01/13/2021 TECHNIQUE: Transabdominal pelvic ultrasound with grayscale, color Doppler, and spectral Doppler analysis. FINDINGS: UTERUS: Size: 8.1 x 3.3 x 5.0 cm, volume 69.6 cc. Endometrial thickness: 0.3 cm. An IUD is in place and appears well positioned within the endometrial cavity. Morphology: Normal configuration and echotexture. RIGHT OVARY: Size: 3.1 x 2.2 x 2.7 cm, volume 9.6 cc. Morphology: Normal echotexture. No pathologic cysts or mass. Normal arterial and venous waveforms. LEFT OVARY: Size: 2.8 x 1.7 x 2.2 cm, volume 5.6 cc. Morphology: Normal echotexture. No pathologic cysts or mass. Normal arterial and venous waveforms. ADNEXA: Trace free fluid in the cul-de-sac, likely physiologic. Free fluid in the pelvic cul-de-sac IMPRESSION: No evidence of an ovarian torsion. An IUD is noted and appears well-positioned within the endometrial cavity. I have personally reviewed the images and I agree with this report. WSN: [id number] Ordering Physician: Marta Cavazos Dictated By: Mary Jane Campbell DO Dictated Date/Time: 08/07/22 10:52 p Reviewed By: Greg Jenkins MD Signed By: Greg Jenkins MD Signed Date/Time: 08/07/22 10:57 pm Transcribed By: MALI Transcribed Date/Time: 08/07/22 10:[address] Abdomen and Pelvis W contrast IV * [employer] , CIS S: TRANSCRIBE Bailee Humphrey MD R: VERIFY Mary Jane Campbell DO: SIGN Event Display: Result: Authored Date: [id number] CT Abd/Pelvis W/ IV + Oral Contrast Hx of Present Illness: 4 days of right-sided abdominal pain. Vomiting reported today. Reason: Rightabdominal pain. Clinical Question(s): Appendicitis. TECHNIQUE: Spiral CT through the abdomen and pelvis with IV contrast formatted in 3 planes. 100 cc of Omnipaque 300 was administered intravenously. This study was performed with oral contrast. Weight-based protocol using automatic tube modulation was used to optimize exposure parameters. CTDIvol Body: 15.20 mGy, DLP Body: 900 mGy*cm. COMPARISON: Right upper quadrant ultrasound 12/15/2021. Appendix and pelvic ultrasound 08/07/2022 FINDINGS: Visualized Chest: Lung bases are clear. No pleural effusion. The heart is normal in size. No pericardial effusion. Diaphragm: Normal. Liver: Normal. Gallbladder: No gallbladder identified, consistent with prior cholecystectomy. Bile ducts: No biliary ductal dilation. Spleen: Normal. Pancreas: Normal. Adrenal glands: Normal. Kidneys and ureters: No hydronephrosis, stones, or suspicious masses. Bladder: Normal. Reproductive organs: An IUD appears well positioned within the endometrial cavity. Stomach, small bowel, and large bowel: Stomach is normal. No evidence of bowel obstruction. No inflammatory changes. Appendix: The appendix is not visualized. There is trace fluid is noted abutting the cecum in the right lower quadrant and in the expected region of the appendix. No adjacent fat stranding. Peritoneum and retroperitoneum: No pneumoperitoneum. No omental or mesenteric lesions. Lymph nodes: No enlarged lymph nodes. Blood vessels: Normal. No aneurysm. No evidence of venous thrombosis. Abdominal and pelvic wall: Unremarkable. Bones: No acute abnormality. IMPRESSION: Trace fluid in the right lower quadrant abutting the cecum with no definite appendix visualized andno adjacent fat stranding. Findings are nonspecific with no definitive evidence of acute appendicitis, however, an early appendicitis cannot be completely excluded. Dr. Mary Jane Campbell discussed the above findings with ED provider THIAGO Montana via phone on 08/08/2022 at 4:58 AM. I have personally reviewed the images and I agree with this report. WSN: [id number] Ordering Physician: Javi Montana Dictated By: Mary Jane Campbell DO Dictated Date/Time: 08/08/22 8:08 am Reviewed By: Bailee Humphrey MD Signed By: Bailee Humphrey MD Signed Date/Time: 08/08/22 8:13 am Transcribed By: MALI Transcribed Date/Time: 08/08/22 5:00 am US Pelvis * [facility] , CIS S: TRANSCRIBE Greg Jenkins MD J: VERIFY Mary Jane Campbell DO: SIGN Event Display: Result: Authored Date: [id number] US Pelvic Transabdominal, US Pelvic Doppler Comp Hx of Present Illness: Patient reports 4 days of right-sided abdominal pain and vomiting starting today. Reason: Pelvic Pain. Clinical Question(s): Ovarian torsion. COMPARISON: Transabdominal pelvic ultrasound 01/13/2021 TECHNIQUE: Transabdominal pelvic ultrasound with grayscale, color Doppler, and spectral Doppler analysis. FINDINGS: UTERUS: Size: 8.1 x 3.3 x 5.0 cm, volume 69.6 cc. Endometrial thickness: 0.3 cm. An IUD is in place and appears well positioned within the endometrial cavity. Morphology: Normal configuration and echotexture. RIGHT OVARY: Size: 3.1 x 2.2 x 2.7 cm, volume 9.6 cc. Morphology: Normal echotexture. No pathologic cysts or mass. Normal arterial and venous waveforms. LEFT OVARY: Size: 2.8 x 1.7 x 2.2 cm, volume 5.6 cc. Morphology: Normal echotexture. No pathologic cysts or mass. Normal arterial and venous waveforms. ADNEXA: Trace free fluid in the cul-de-sac, likely physiologic. Free fluid in the pelvic cul-de-sac IMPRESSION: No evidence of an ovarian torsion. An IUD is noted and appears well-positioned within the endometrial cavity. I have personally reviewed the images and I agree with this report. WSN: [id number] Ordering Physician: Marta Cavazos Dictated By: Mary Jane Campbell DO Dictated Date/Time: 08/07/22 10:52 p Reviewed By: Greg Jenkins MD Signed By: Greg Jenkins MD Signed Date/Time: 08/07/22 10:57 pm Transcribed By: MALI Transcribed Date/Time: 08/07/22 10:48 pm US Appendix * [facility] , CIS S: TRANSCRIBE Greg Jenkins MD: VERIFY Event Display: Result: Authored Date: [id number] US Appendix Hx of Present Illness: pt from home w 4 days of R sided abd pain w vomiting that started today; pt reports fever last night; pt reports constipation today; Reason: Other:; Abdominal Pain; Clinical Question(s): Appendicitis COMPARISON: Concurrent pelvic ultrasound. IMAGING TECHNIQUE: High-resolution graded compression sonography was performed using a linear arraytransducer at the expected locations of the appendix and at the patient's maximal point of tenderness. FINDINGS: Appendix: The appendix is not visualized. Right lower quadrant bowel loops are normal in caliber. No focal bowel wall thickening or inflammatory change at the site of maximal tenderness. Fluid: Small amount of free fluid in the right lower quadrant. Abscess: No abscess or organized fluid collection. Lymph nodes: No regional lymphadenopathy. Additional findings: None. IMPRESSION: Appendix could not be visualized with ultrasound. This limits the usefulness of this exam at excluding appendicitis. There is a small amount of nonspecific free fluid in the RLQ. A normal right ovaryis seen on concurrent pelvic ultrasound. WSN: [id number] Ordering Physician: Marta Cavazos Dictated By: Greg Jenkins MD Dictated Date/Time: 08/07/22 10:55 p Reviewed By: Greg Jenkins MD Signed By: Greg Jenkins MD Signed Date/Time: 08/07/22 10:55 pm Transcribed By: MALI Transcribed Date/Time: 08/07/22 10:53 pm Patient Care team information Care Team Personnel Name: Davina Greer MD, V Position: [facility] Primary Care Physician Member Role: PCP Address: Address: [address] [place] [address]- Name: Jyothi Londono RN Position: [facility] ED RN W/OE and Tasks Member Role: Patient Care Provider Name: Javi Schilling Position: [facility] Associate Professional Member Role: ED Physician Driver Utility Worker Address: Address: [address] [place] [address]- Name: Sherie Monaco RN Position: [facility] ED RN W/OE and Tasks Member Role: Patient Care Provider Name: Pankaj Strauss MD Position: [facility] ED Medicine MD Member Role: Admitting Physician Address: Address: [address] [place] [address]- Name: Marta Cavazos DO Position: [facility] Resident Member Role: Resident Address: Address: [address] [place] [address]- [place] Name: Sabina Mejia MD Position: [facility] ED Medicine MD Member Role: ED Physician Address: Address: [address] [place] [address] [place] [address]- Care Team Related Persons Name: ЕЛЕНА REBOLLEDO Address: home [address] [place] [address] Name: LAM SMALL Address: home [address] [place] [address] Name: CATALINA CASTLE Address: home [address] [place] [address] Name: TAMMY ANG Address: home [address] [place] [address] Name: KALIE ROSAS Address: [address] Address: home [address] [place] [address] [place] Name: ЕЛЕНА SCHMID Address: home [address] [place] [address]
--- OUTSIDE RECORDS SUMMARY | 2024-06-21 08:19 | XMS_ITS | Continuity of Care Document ---
Author Organization [facility] Address [address] [place] [address]- Care Team Providers Care Administrative Associate Name Role Phone Percy BELLE, Davina Aguiar Primary Care Physician Encounter [facility] Date(s): 11/17/21 - 11/17/[address] [address] Discharge Disposition: A-D/C Home Attending Physician: Do Stockton MD Admitting Physician: Do Stockton MD Referring Physician: Do Stockton MD Allergies, Adverse Reactions, Alerts No Known [...] 05/26/21 15:26:00 EDT, Route to Pharmacy Electronically, [facility][id number], Partial fill upon patient request if the pr... Start Date: 05/26/21 Status: Ordered famotidine 20 mg oral tablet 20 mg, 1, tablet, By Mouth, Daily at bedtime, # 90 tablet, Refills 1, Tot. Refills 1, Maintenance, 09/29/21 16:45:00 EST, Route to Pharmacy Electronically, [facility] #[id number], Partial fill upon patient request if the prescription is for a miesha... Start Date: 09/29/21 Status: Ordered MiraLax oral powder for reconstitution = 17 Gm, By Mouth, Daily, dissolve in water before taking, # 255 Gm, 0 Refills, Maintenance, 07/16/21 16:52:00 EDT, REC Powder, [facility] #[id number], Partial fill upon patient request if the prescription is for a schedule II opioid drug., 17 Gm... Start Date: 07/16/21 Status: Ordered Multivitamins with Folic Acid 1 mg oral capsule See Instructions, TAKE ONE DAILY BY MOUTH, # 100 capsule, 3 Refills, Maintenance, 05/11/21 14:11:00EDT, [facility] #[id number], Partial fill upon patient request if the prescription is for a schedule II opioid drug., TAKE ONE DAILY BY MOUTH, 157... Start Date: 05/11/21 Status: Ordered ProAir HFA 90 mcg/inh inhalation aerosol with adapter 2, puffs, Inhalation, Every 6 hours, PRN, # 18 Gm, Refills 1, Tot. Refills 1, Maintenance, 05/26/2115:26:00 EDT, Aerosol, Route to Pharmacy Electronically, [id number], [facility] #[id number], 157, cm, 05/26/21 15:17:00... Start Date: 05/26/21 [...] mental health services at present. Informed of [facility] services - pt to call office and request services if needed. 2managed by PCP 3Urine Social History Social History Type Response Smoking Status Never (less than 100 in lifetime); Exposure to Secondhand Smoke: No entered on: 07/28/21 Sex
--- OUTSIDE RECORDS SUMMARY | 2024-06-21 08:19 | XMS_ITS | Continuity of Care Document ---
Author Organization [facility] Address [address] [place] [address]- Care Team Providers Care Endoscope Technician Name Role Phone Percy BELLE, Davina Aguiar Primary Care Physician Encounter [facility] Date(s): 09/18/21 - 10/18/[address] [address]- Allergies, Adverse Reactions, Alerts No Known Allergies [...] 0 Refills, Maintenance, 08/19/21 16:09:00 EST, Suppository, [facility] #[id number], Partial fill upon patient request if the prescription is for... Start Date: 08/19/21 Status: Ordered Colace sodium 100 mg oral capsule 100 mg, 1, capsule, By Mouth, 2 times a day, PRN, # 60 capsule, Refills 1, Tot. Refills 1, Maintenance, for constipation, 05/26/21 15:26:00 EDT, Route to Pharmacy Electronically, [facility]#[id number], Partial fill upon patient request if the pr... Start Date: 05/26/21 Status: Ordered famotidine 20 mg oral tablet 20 mg, 1, tablet, By Mouth, Daily at bedtime, # 90 tablet, Refills 1, Tot. Refills 1, Maintenance, 09/29/21 16:45:00 EST, Route to Pharmacy Electronically, [facility] #[id number], Partial fill upon patient request if the prescription is for a miesha... Start Date: 09/29/21 Status: Ordered MiraLax oral powder for reconstitution = 17 Gm, By Mouth, Daily, dissolve in water before taking, # 255 Gm, 0 Refills, Maintenance, 07/16/21 16:52:00 EDT, REC Powder, [facility] #[id number], Partial fill upon patient request if the prescription is for a schedule II opioid drug., 17 Gm... Start Date: 07/16/21 Status: Ordered nitrofurantoin macrocrystals 100 mg oral capsule 1 capsule = 100 mg, By Mouth, 2 times a day, # 10 capsule, 0 Refills, Maintenance, 09/18/21 17:05:00 EST, Capsule, [facility] #[id number], Partial fill upon patient request if the prescription is for a schedule II opioid drug., 157, cm, 09/15/21... Start Date: 09/18/21 Stop Date: 09/23/21 Status: Ordered petrolatum topical 100% ointment See Instructions, Apply on dry skin BID for one month, # 450 Gm, 11 Refills, Maintenance, 07/28/21 17:16:00 EST, [email or web address] #[id number], Partial fill upon patient request if the prescription is for a schedule II opioid drug., Apply on dry skin BI... Start Date: 07/28/21 Status: Ordered Multivitamins with Folic Acid 1 mg oral capsule See Instructions, TAKE ONE DAILY BY MOUTH, # 100 capsule, 3 Refills, Maintenance, 05/11/21 14:11:00EDT, [facility] #[id number], Partial fill upon patient request if the prescription is for a schedule II opioid drug., TAKE ONE DAILY BY MOUTH, 157... Start Date: 05/11/21 Status: Ordered ProAir HFA 90 mcg/inh inhalation aerosol with adapter 2, puffs, Inhalation, Every 6 hours, PRN, # 18 Gm, Refills 1, Tot. Refills 1, Maintenance, 05/26/2115:26:00 EDT, Aerosol, Route to Pharmacy Electronically, [id number], [facility] #[id number], 157, cm, 05/26/21 15:17:00... Start Date: 05/26/21 Status: Ordered triamcinolone 0.1% topical lotion See Instructions, Topically 2 times a day apply a thin film to affected area, # 60 mL, 0 Refills, Maintenance, 09/29/21 16:45:00 EST, Lotion, [facility] #[id number], Partial fill upon patient request if the prescription is for a schedule II opi... Start Date: 09/29/21 Status: Ordered Vaporizer Vaporizer, See Instructions, # [...] mental health services at present. Informed of [facility] services - pt to call office and request services if needed. 2managed by PCP 3Urine Social History Social History Type Response Smoking Status Never (less than 100 in lifetime); Exposure to Secondhand Smoke: No entered on: 07/28/21 Sex
--- OUTSIDE RECORDS SUMMARY | 2024-06-21 08:19 | XMS_ITS | Continuity of Care Document ---
Author Organization [facility] Address [address] [place] [address]- Care Team Providers Care Science Consultant Name Role Phone Vishnu Sun MD Primary Care Physician [phone] En[place] [facility] Date(s): 02/16/24 - 03/17/24 [facility] [address]- Attending Physician: AdmOlivia lewis Admitting Physician: AdmtrOlivia Referring Physician: Admtr, Ar8 Allergies, Adverse Reactions, Alerts No Known Allergies Immunizations Given and Recorded Vaccine Date Status Refusal Reason Meningococcal Conjugate Vaccine 08/28/23 Given Meningococcal Conjugate Vaccine 05/08/18 Recorded Hepatitis A Adult Vaccine 08/28/23 Given influenza virus vaccine, inactivated 06/30/23 Give n influenza virus vaccine, inactivated 08/26/22 Give n influenza virus vaccine, inactivated 07/21/21 Give n SARS-CoV-2 mRNA ([id number]-knsft) vax 11/21/21 Given tetanus/diphtheria/pertussis, acel(Tdap) 09/15/21 Given [...] 08/28/23 15:23:00 EST, Route to Pharmacy Electronically, [facility] #[id number], Partial fill upon patient request if the prescri... Start Date: 08/28/23 Status: Ordered fluticasone 50 mcg/inh nasal spray See Instructions, SHAKE LIQUID AND USE 1 SPRAY IN EACH NOSTRIL DAILY SHAKE WELL BEFORE USING, # 16 Gm, 11 Refills, Maintenance, 09/29/23 17:26:00 EST, [facility] #[id number], 30, SHAKE LIQUID AND USE 1 SPRAY IN EACH NOSTRIL DAILY SHAKE WELL BEFOR... Start Date: 09/29/23 Status: Ordered Imodium A-D 2 mg oral tablet 2 mg, 1, tablet, By Mouth, 2 times a day, for 14 days, # 60 tablet, Refills 3, Tot. Refills 3, Acute 03/29/24 16:58:00 EDT, 02/02/24 16:58:00 EDT, Route to Pharmacy Electronically, [facility] #[id number], Partial fill upon patient request if the... Start Date: 02/02/24 Stop Date: 03/29/24 Status: Ordered loratadine 10 mg oral tablet 10 mg, 1, tablet, By Mouth, Daily, PRN, # 30 tablet, Refills 2, Tot. Refills 2, Maintenance, Itch, 09/28/23 13:12:00 EST, Route to Pharmacy Electronically, [facility] #[id number], Partial fill upon patient request if the prescription is for a miesha... Start Date: 09/28/23 Stop Date: 12/27/23 Status: Ordered omeprazole 20 mg oral enteric coated capsule 1 capsule, By Mouth, Daily, # 14 capsule, 0 Refills, Maintenance, 09/12/23 18:52:00 EST, [facility] #[id number], 156, cm, 08/28/23 14:14:00 EST, Height, 114.3, kg, 08/28/23 14:14:00 EST, Dry Weight Start Date: 09/12/23 Stop Date: 09/26/23 Status: Ordered predniSONE 20 mg oral tablet See Instructions, 3 tab PO one time , then 2 tab PO one time a day for 4 days., # 11 tablet, 0 Refills, Maintenance, 08/28/23 15:19:00 EST, [facility] #[id number], Partial fill upon patient request if the prescription is for a schedule II opioid... Start Date: 08/28/23 Status: Ordered Protective Ointment with Vitamins A&D topical ointment 1 applicator, Topically, Daily, apply on dry skin, # 120 Gm, 2 Refills, Maintenance, 06/30/23 13:12:00 EDT, [facility] #[id number], Partial fill upon patient request if the [...] mental health services at present. Informed of [facility] services - pt to call office and request services if needed. 2managed by PCP Social History Social History Type Response Smoking Status Never (less than 100 in lifetime); Exposure to Secondhand Smoke: No entered on: 02/02/24 Sex Laboratory * Event Display: Non Lab Results Authored Date: [id number] Patient Care team information Care Team Personnel Name: Vishnu Sun MD Position: [facility] Resident Member Role: PCP Address: Address: [address] [place] [address]- Care Team Related Persons Name: LAM REBOLLEDO Address: home [address] [place] [address] Name: ЕЛЕНА REBOLLEDO Address: home [address] [place] [address] Name: LAM SMALL Address: home [address] [place] [address] Name: CATALINA CASTLE Address: home [address] [place] [address] Name: TAMMY ANG Address: home [address] [place] [address] Name: KALIE ROSAS Address: [id number] Address: home [address] [place] [address] Name: ЕЛЕНА SCHMID Address: home [address] [place] [address]
--- OUTSIDE RECORDS SUMMARY | 2024-06-21 08:19 | XMS_ITS | Continuity of Care Document ---
Author Organization [facility] Address [address] [place] [address]- Care Team Providers Care Claims Service Representative Name Role Phone Percy BELLE, Davina Aguiar Primary Care Physician [place] [facility] [place]14[place]23 [place] 07/14/23 [facility] [place] [address]- [place] Allergies, Adverse Reactions, Alerts No Known Allergies Immunizations Given and Recorded Vaccine Date Status Refusal Reason influenza virus vaccine, inactivated 06/30/23 Give n influenza virus vaccine, inactivated 08/26/22 Give n influenza virus vaccine, inactivated 07/21/21 Give n SARS-CoV-2 mRNA ([id number]-[id number]) vax 11/21/21 Given tetanus/diphtheria/pertussis, acel(Tdap) 09/15/21 Given [...] 06/30/23 13:12:00 EDT, Route to Pharmacy Electronically, [facility] #[id number], Partial fill upon patient request if the prescription is for a miesha... Start Date: 06/30/23 Stop Date: 09/28/23 Status: Ordered omeprazole 20 mg oral enteric coated capsule 1 capsule, By Mouth, Daily, # 30 capsule, 0 Refills, Maintenance, 09/30/22 12:35:00 EST, [facility] #[id number], 154.5, cm, 08/26/22 9:56:00 EST, Height, 117, kg, 08/26/22 9:56:00 EST, Dry Weight Start Date: 09/30/22 Status: Ordered Multivitamins with Folic Acid 1 mg oral capsule See Instructions, TAKE ONE DAILY BY MOUTH, # 100 capsule, 3 Refills, Maintenance, 05/11/21 14:11:00EDT, [email or web address] #[id number], Partial fill upon patient request if the prescription is for a schedule II opioid drug., TAKE ONE DAILY BY MOUTH, 157... Start Date: 05/11/21 Status: Ordered ProAir HFA 90 mcg/inh inhalation aerosol with adapter 2, puffs, Inhalation, Every 6 hours, PRN, # 18 Gm, Refills 1, Tot. Refills 1, Maintenance, 05/26/2115:26:00 EDT, Aerosol, Route to Pharmacy Electronically, [id number], [facility] #[id number], 157, cm, 05/26/21 15:17:00... Start Date: 05/26/21 Status: Ordered Protective Ointment with Vitamins A&D topical ointment 1 applicator, Topically, Daily, apply on dry skin, # 120 Gm, 2 Refills, Maintenance, 06/30/23 13:12:00 EDT, [facility] #[id number], Partial fill upon patient request if the prescription is for aschedule II opioid drug., 1 applicator Topically Da... Start Date: 06/30/23 Status: Ordered triamcinolone 0.025% topical cream 1 application, Topically, 2 times a day, for 14 days, # 60 Gm, 1 Refills, Acute 07/28/23 13:12:00 EST, 06/30/23 13:12:00 EDT, Cream, [facility] #[id number], Partial fill upon patient request if the prescription is for a schedule II opioid drug.,... Start Date: 06/30/23 Stop Date: 07/28/23 Status: Ordered Vaporizer Vaporizer, See Instructions, # [...] mental health services at present. Informed of [facility] services - pt to call office and request services if needed. 2managed by PCP Social History Social History Type Response Smoking Status Never (less than 100 in lifetime); Exposure to Secondhand Smoke: No entered on: 07/28/21 Sex Patient Care team information Care Team Personnel Name: Percy BELLE, Davina Aguiar Position: [facility] Physician - Primary Care Member Role: PCP Address: Address: [address] [place] [address]- Care Team Related Persons Name: LAM REBOLLEDO Address: home [address] [place] [address] Name: ЕЛЕНА REBOLLEDO Address: home [address] [place] [address] Name: LAM SMALL Address: home [address] [place] [address] Name: CATALINA CASTLE Address: home [address] [place] [address] Name: TAMMY ANG Address: home [address] [place] [address] Name: KALIE ROSAS Address: [address] Address: home [address] [place] [address] Name: ЕЛЕНА SCHMID Address: home [address] [place] [address]
--- OUTSIDE RECORDS SUMMARY | 2024-06-21 08:19 | XMS_ITS | Continuity of Care Document ---
Author Organization [facility] Address [address] [place] [address]- Care Team Providers Care Armature Balancer Name Role Phone Percy BELLE, Davina Aguiar Primary Care Physician [place] [facility] [place] 04[place]13/[place] [facility] [address] [address] Attending Physician: Admjoshua, Olivia Admitting Physician: AdmtrOlivia Referring Physician: Admtr, Ar8 Allergies, Adverse Reactions, Alerts No Known Allergies Immunizations Given and Recorded Vaccine Date Status Refusal Reason SARS-CoV-2 mRNA (rtbdavk-setu-zvvcy) vax 11/21/21 Given tetanus/diphtheria/pertussis, acel(Tdap) 09/15/21 Given [...] 100 capsule, 3 Refills, Maintenance, 05/11/21 14:11:00EDT, [facility] #[id number], Partial fill upon patient request if the prescription is for a schedule II opioid drug., TAKE ONE DAILY BY MOUTH, 157... Start Date: 05/11/21 Status: Ordered ProAir HFA 90 mcg/inh inhalation aerosol with adapter 2, puffs, Inhalation, Every 6 hours, PRN, # 18 Gm, Refills 1, Tot. Refills 1, Maintenance, 05/26/2115:26:00 EDT, Aerosol, Route to Pharmacy Electronically, [id number], [facility] #[id number], 157, cm, 05/26/21 15:17:00... Start Date: 05/26/21 [...]
--- OUTSIDE RECORDS SUMMARY | 2024-06-21 08:19 | XMS_ITS | Continuity of Care Document ---
Author Organization [facility] Address [address] [place] [address]- Care Team Providers Care Black Puller Name Role Phone Percy BELLE, Davina Aguiar Primary Care Physician Encounter [facility] [place] Date(s): 11/22/21 - 01/29/22 [facility] [address] [address]- Attending Physician: Not on Staff, Attending MD Allergies, Adverse Reactions, Alerts No Known Allergies Immunizations Given and Recorded Vaccine Date Status Refusal Reason SARS-CoV-2 mRNA (tbgndpg-ozdh-npprz) vax 11/21/21 Given tetanus/diphtheria/pertussis, acel(Tdap) 09/15/21 Given [...] 05/26/21 15:26:00 EDT, Route to Pharmacy Electronically, [facility][id number], Partial fill upon patient request if the pr... Start Date: 05/26/21 Status: Ordered Depo-Provera Inj = 150 mg, Intramuscular, Once, 0 Refills, Maintenance Start Date: 11/21/21 Status: Ordered famotidine 20 mg oral tablet 20 mg, 1, tablet, By Mouth, Daily at bedtime, # 90 tablet, Refills 1, Tot. Refills 1, Maintenance, 09/29/21 16:45:00 EST, Route to Pharmacy Electronically, [facility] #[id number], Partial fill upon patient request if the prescription is for a miesha... Start Date: 09/29/21 Status: Ordered MiraLax oral powder for reconstitution = 17 Gm, By Mouth, Daily, dissolve in water before taking, # 255 Gm, 0 Refills, Maintenance, 07/16/21 16:52:00 EDT, REC Powder, [facility] #[id number], Partial fill upon patient request if the prescription is for a schedule II opioid drug., 17 Gm... Start Date: 07/16/21 Status: Ordered Multivitamins with Folic Acid 1 mg oral capsule See Instructions, TAKE ONE DAILY BY MOUTH, # 100 capsule, 3 Refills, Maintenance, 05/11/21 14:11:00EDT, [facility] #[id number], Partial fill upon patient request if the prescription is for a schedule II opioid drug., TAKE ONE DAILY BY MOUTH, 157... Start Date: 05/11/21 Status: Ordered ProAir HFA 90 mcg/inh inhalation aerosol with adapter 2, puffs, Inhalation, Every 6 hours, PRN, # 18 Gm, Refills 1, Tot. Refills 1, Maintenance, 05/26/2115:26:00 EDT, Aerosol, Route to Pharmacy Electronically, [id number], [facility] #[id number], 157, cm, 05/26/21 15:17:00... Start Date: 05/26/21 [...] H/O Eczema(Confirmed) Active H/O Irregular Menses(Confirmed) Active 1not engaged with mental health services at present. Informed of [facility] services - pt to call office and request services if needed. 2managed by PCP Social History Social History Type Response Smoking Status Never (less than 100 in lifetime); Exposure to Secondhand Smoke: No entered on: 07/28/21 Sex
--- OUTSIDE RECORDS SUMMARY | 2024-06-21 08:19 | XMS_ITS | Continuity of Care Document ---
Author Organization [facility] Address [address] [place] [address]- Care Team Providers Care Pediatric Pathologist Name Role Phone Vishnu Sun MD Primary Care Physician Encounter [facility] [place] Date(s): 07/28/23 - 08/27/[address] [address]- Attending Physician: Olivia Vaca Admitting Physician: AdmOlivia lewis Referring Physician: Admtr ArKeisha Allergies, Adverse Reactions, Alerts No Known Allergies Immunizations Given and Recorded Vaccine Date Status Refusal Reason influenza virus vaccine, inactivated 06/30/23 Give n influenza virus vaccine, inactivated 08/26/22 Give n influenza virus vaccine, inactivated 07/21/21 Give n SARS-CoV-2 mRNA (hokcwup-jcii-vsnhd) vax 11/21/21 Given tetanus/diphtheria/pertussis, acel(Tdap) 09/15/21 Given [...] 06/30/23 13:12:00 EDT, Route to Pharmacy Electronically, [facility] #[id number], Partial fill upon patient request if the prescription is for a miesha... Start Date: 06/30/23 Stop Date: 09/28/23 Status: Ordered Protective Ointment with Vitamins A&D topical ointment 1 applicator, Topically, Daily, apply on dry skin, # 120 Gm, 2 Refills, Maintenance, 06/30/23 13:12:00 EDT, [facility] #[id number], Partial fill upon patient request if the [...] mental health services at present. Informed of [facility] services - pt to call office and request services if needed. 2managed by PCP Social History Social History Type Response Smoking Status Never (less than 100 in lifetime); Exposure to Secondhand Smoke: No entered on: 07/28/21 Sex Patient Care team information Care Team Personnel Name: Vishnu Sun MD Position: [facility] Resident Member Role: PCP Address: Address: [address] [place] [address]- Care Team Related Persons Name: LAM REBOLLEDO Address: home [address] [place] [address] Name: ЕЛЕНА REBOLLEDO Address: home [address] [place] [address] Name: LAM SMALL Address: home [address] [place] [address] Name: CATALINA CASTLE Address: home [address] [place] [address] Name: TAMMY ANG Address: home [address] [place] [address] Name: KALIE ROSAS Address: [id number] Address: home [address] [place] [address] Name: ЕЛЕНА SCHMID Address: home [address] [place] [address]
--- OUTSIDE RECORDS SUMMARY | 2024-06-21 08:19 | XMS_ITS | Continuity of Care Document ---
Author Organization [facility] Address [address] [place] [address]- Care Team Providers Care Line Dancer Name Role Phone Percy BELLE, Davina Aguiar Primary Care Physician Encounter [facility] [place] Date(s): 12/15/21 - 12/16/[address] [address]- Encounter Diagnosis Cholelithiasis(Final) - 12/15/21 Discharge Disposition: A-D/C Home Attending Physician: Can Maxwell MD Admitting Physician: Can Maxwell MD Referring Physician: Not on Staff, Referring MD Allergies, Adverse Reactions, Alerts No Known Allergies Immunizations Given and Recorded Vaccine Date Status Refusal Reason SARS-CoV-2 mRNA (eqwxggh-xuef-dgymr) vax 11/21/21 Given tetanus/diphtheria/pertussis, acel(Tdap) 09/15/21 Given [...] 05/26/21 15:26:00 EDT, Route to Pharmacy Electronically, [facility][id number], Partial fill upon patient request if the pr... Start Date: 05/26/21 Status: Ordered Depo-Provera Inj = 150 mg, Intramuscular, Once, 0 Refills, Maintenance Start Date: 11/21/21 Status: Ordered famotidine 20 mg oral tablet 20 mg, 1, tablet, By Mouth, Daily at bedtime, # 90 tablet, Refills 1, Tot. Refills 1, Maintenance, 09/29/21 16:45:00 EST, Route to Pharmacy Electronically, [facility] #[id number], Partial fill upon patient request if the prescription is for a miesha... Start Date: 09/29/21 Status: Ordered ibuprofen 400 mg oral tablet 400 mg, 1, tablet, By Mouth, Every 4 hours, PRN, for 5 days, # 30 tablet, Refills 0, Tot. Refills 0, Acute 12/21/21 11:58:00 EDT, for pain, 12/16/21 11:58:00 EDT, Route to Pharmacy Electronically, [facility], Partial fill upon patient re... Start Date: 12/16/21 Stop Date: 12/21/21 Status: Ordered ibuprofen 600 mg oral tablet 600 mg, Tablet, By Mouth, Every 8 hours, PRN for Pain , Mild, Routine, 12/15/21 19:39:00 EDT Start Date: 12/15/21 Stop Date: 12/16/21 Status: Discontinued MiraLax oral powder for reconstitution = 17 Gm, By Mouth, Daily, dissolve in water before taking, # 255 Gm, 0 Refills, Maintenance, 07/16/21 16:52:00 EDT, REC Powder, [facility] #[id number], Partial fill upon patient request if the prescription is for a schedule II opioid drug., 17 Gm... Start Date: 07/16/21 Status: Ordered oxyCODONE 5 mg oral tablet 5 mg, 1, tablet, By Mouth, Every 6 hours, PRN, for 3 days, # 5 tablet, Refills 0, Tot. Refills 0, Acute 12/18/21 19:10:00 EDT, Pain , Severe, 12/15/21 19:10:00 EDT, Route to Pharmacy Electronically, [facility] #[id number], Partial fill upon patie... Start Date: 12/15/21 Stop Date: 12/18/21 Status: Ordered oxyCODONE 5 mg oral tablet 5 mg, Tablet, By Mouth, Every 4 hours, PRN for Pain , Severe, Routine, 12/16/21 0:18:00 EDT Start Date: 12/16/21 Stop Date: 12/16/21 Status: Discontinued Multivitamins with Folic Acid 1 mg oral capsule See Instructions, TAKE ONE DAILY BY MOUTH, # 100 capsule, 3 Refills, Maintenance, 05/11/21 14:11:00EDT, [facility] #[id number], Partial fill upon patient request if the prescription is for a schedule II opioid drug., TAKE ONE DAILY BY MOUTH, 157... Start Date: 05/11/21 Status: Ordered ProAir HFA 90 mcg/inh inhalation aerosol with adapter 2, puffs, Inhalation, Every 6 hours, PRN, # 18 Gm, Refills 1, Tot. Refills 1, Maintenance, 05/26/2115:26:00 EDT, Aerosol, Route to Pharmacy Electronically, [id number], [facility] #[id number], 157, cm, 05/26/21 15:17:00... Start Date: 05/26/21 Status: Ordered Tylenol 325 mg oral tablet 650 mg, 2, tablet, By Mouth, Every 4 hours, PRN, for 5 days, # 50 tablet, Refills 0, Tot. Refills 0, Acute 12/21/21 11:56:00 EDT, Pain , Mild, 12/16/21 11:56:00 EDT, Route to Pharmacy Electronically,[facility], Partial fill upon patient... Start Date: [...] health services at present. Informed of [facility] services - pt to call office and request services if needed. 2managed by PCP 3Urine Procedures Procedure Date Related Diagnosis Body Site Status Laparoscopic cholecystectomy Completed Vital Signs Most recent to oldest [Reference Range]: 1 2 3 Height 154 cm (12/15/21 8:53 PM) 154 cm (12/15/21 3:36 PM) 154 cm (12/15/21 1:20 PM) Weight 104.3 kg (12/15/21 3:36 PM) 104.3 kg (12/15/21 1:20 PM) 104.9 kg (12/15/21 11:56 AM) Oxygen Saturation [94-100 %] 98 % (12/16/21 9:00 AM) 96 % (12/16/21 4:16 AM) 98 % (12/15/21 11:34 PM) Pulse Rate [55-90 bpm] 87 bpm (12/16/21 4:16 AM) 103 bpm *H* (12/15/21 11:34 PM) 82 bpm (12/15/21 8:53 PM) Body Mass Index [18.5-24.99] 43.98 *>HHI* (12/15/21 3:36 PM) 43.98 *>HHI* (12/15/21 1:20 PM) Blood Pressure [80-130/50-80 mm Hg] 118/64mm Hg (12/16/21 9:00 AM) 120/66mm Hg (12/16/21 4:16 AM) 128/83mm Hg (12/15/21 11:34 PM) Respiratory Rate [16-30 br/min] 18 br/min (12/16/21 10:10 AM) 18 br/min (12/16/21 10:10 AM) 18 br/min (12/16/21 9:10 AM) Temperature [96.8-100.4 DegF] 98.4 DegF (12/16/21 9:00 AM) 98.1 DegF (12/16/21 4:16 AM) 98.2 DegF (12/15/21 11:34 PM) Liters per Minute 0 L/min (12/15/21 6:45 PM) 4 L/min (12/15/21 6:30 PM) Mode of Delivery (Oxygen) Room air (12/16/21 9:00 AM) Room air (12/16/21 4:16 AM) Room air (12/15/21 11:34 PM) Blood pressure sites Arm, left (12/16/21 9:00 AM) Arm, left (12/16/21 4:16 AM) Arm, left (12/15/21 11:34 PM) Temperature Route Oral (12/16/21 9:00 AM) Oral (12/16/21 4:16 AM) Oral (12/15/21 11:34 PM) Dry Weight 104.9 kg (12/15/21 11:56 AM) 104.9 kg (12/15/21 6:41 AM) 104.9 kg (12/15/21 6:33 AM) Weight Obtained Via Standing scale (12/15/21 1:20 PM) Standing scale (12/15/21 6:33 AM) Dry Weight Obtained Via Standing scale (12/15/21 6:33 AM) Social History Social History Type Response Smoking Status Never (less than 100 in lifetime); Exposure to Secondhand Smoke: No entered on: 07/28/21 Sex
--- OUTSIDE RECORDS SUMMARY | 2024-06-21 08:19 | XMS_ITS | Continuity of Care Document ---
Author Organization [facility] ter Address [address] [place] [address]- Care Team Providers Care Vp Legal Affairs Name Role Phone Davina Greer MD, V Primary Care Physician Encounter [facility] [place] Date(s): 10/23/[address] [address] Attending Physician: Scotty BELLE [OB], Zohreh Harris Admitting Physician: Scotty BELLE [OB], Zohreh Harris Referring Physician: Scotty BELLE [OB], Zohreh Harris Allergies, Adverse Reactions, Alerts No Known Allergies [...] 0 Refills, Maintenance, 08/19/21 16:09:00 EST, Suppository, [facility] #[id number], Partial fill upon patient request if the prescription is for... Start Date: 08/19/21 Status: Ordered Colace sodium 100 mg oral capsule 100 mg, 1, capsule, By Mouth, 2 times a day, PRN, # 60 capsule, Refills 1, Tot. Refills 1, Maintenance, for constipation, 05/26/21 15:26:00 EDT, Route to Pharmacy Electronically, [facility][id number], Partial fill upon patient request if the pr... Start Date: 05/26/21 Status: Ordered famotidine 20 mg oral tablet 20 mg, 1, tablet, By Mouth, Daily at bedtime, # 90 tablet, Refills 1, Tot. Refills 1, Maintenance, 09/29/21 16:45:00 EST, Route to Pharmacy Electronically, [facility] #[id number], Partial fill upon patient request if the prescription is for a miesha... Start Date: 09/29/21 Status: Ordered MetroGel 1% topical gel 1 application, Topically, Daily, # 45 Gm, 0 Refills, Maintenance, 10/24/21 5:43:00 EST, Gel, [facility] #[id number], Partial fill upon patient request if the prescription is for a schedule II opioid drug., 1 application Topically Daily,x7 days, 1... Start Date: 10/24/21 Stop Date: 10/31/21 Status: Ordered MiraLax oral powder for reconstitution = 17 Gm, By Mouth, Daily, dissolve in water before taking, # 255 Gm, 0 Refills, Maintenance, 07/16/21 16:52:00 EDT, REC Powder, [facility] #[id number], Partial fill upon patient request if the prescription is for a schedule II opioid drug., 17 Gm... Start Date: 07/16/21 Status: Ordered nitrofurantoin macrocrystals 100 mg oral capsule 1 capsule = 100 mg, By Mouth, 2 times a day, # 10 capsule, 0 Refills, Maintenance, 09/18/21 17:05:00 EST, Capsule, [facility] #[id number], Partial fill upon patient request if the prescription is for a schedule II opioid drug., 157, cm, 09/15/21... Start Date: 09/18/21 Stop Date: 09/23/21 Status: Ordered petrolatum topical 100% ointment See Instructions, Apply on dry skin BID for one month, # 450 Gm, 11 Refills, Maintenance, 07/28/21 17:16:00 [facility][id number], Partial fill upon patient request if the prescription is for a schedule II opioid drug., Apply on dry skin BI... Start Date: 07/28/21 Status: Ordered Multivitamins with Folic Acid 1 mg oral capsule See Instructions, TAKE ONE DAILY BY MOUTH, # 100 capsule, 3 Refills, Maintenance, 05/11/21 14:11:00EDT, [facility] #[id number], Partial fill upon patient request if the prescription is for a schedule II opioid drug., TAKE ONE DAILY BY MOUTH, 157... Start Date: 05/11/21 Status: Ordered ProAir HFA 90 mcg/inh inhalation aerosol with adapter 2, puffs, Inhalation, Every 6 hours, PRN, # 18 Gm, Refills 1, Tot. Refills 1, Maintenance, 05/26/2115:26:00 EDT, Aerosol, Route to Pharmacy Electronically, [id number], [facility] #[id number], 157, cm, 05/26/21 15:17:00... Start Date: 05/26/21 Status: Ordered triamcinolone 0.1% topical lotion See Instructions, Topically 2 times a day apply a thin film to affected area, # 60 mL, 0 Refills, Maintenance, 09/29/21 16:45:00 EST, Lotion, [facility] #[id number], Partial fill upon patient request if the [...] mental health services at present. Informed of [facility] services - pt to call office and request services if needed. 2managed by PCP 3Urine Procedures Procedure Date Related Diagnosis Body Site Status None Completed Vital Signs Most recent to oldest [Reference Range]: 1 2 Height 158 cm (10/23/21 11:54 PM) Weight 109.6 kg (10/23/21 11:20 PM) Oxygen Saturation [94-100 %] 99 % (10/24/21 4:24 AM) Blood Pressure [80-130/50-80 mm Hg] 98/7 9mm Hg (10/24/21 4:24 AM) 87/57mm Hg (10/23/21 11:54 PM) Respiratory Rate [16-30 br/min] 18 br/mi n (10/23/21 11:54 PM) Temperature [96.8-100.4 DegF] 98.4 DegF (10/23/21 11:20 PM) Mode of Delivery (Oxygen) Room air (10/23/21 11:54 PM) Blood pressure sites Arm, left (10/23/21 11:54 PM) Temperature Route Oral (10/23/21 11:20 PM) Dry Weight 109.6 kg (10/23/21 11:20 PM) Weight Obtained Via Standing scale (10/23/21 11:20 PM) Dry Weight Obtained Via Standing scale (10/23/21 11:20 PM) Social History Social History Type Response Smoking Status Never (less than 100 in lifetime); Exposure to Secondhand Smoke: No entered on: 07/28/21 Sex
--- OUTSIDE RECORDS SUMMARY | 2024-06-21 08:19 | XMS_ITS | Continuity of Care Document ---
Author Organization [facility] Address [address] [place] [address]- Care Team Providers Care Family Member Caretaker Name Role Phone Percy BELLE, Davina Aguiar Primary Care Physician Encounter [facility] [place] Date(s): 06/07/23 - 07/07/[address] [address]- Attending Physician: AdmTin [email or web address] Admitting Physician: AdmtrOlivia Referring Physician: Admtr, Ar8 Allergies, Adverse Reactions, Alerts No Known Allergies Immunizations Given and Recorded Vaccine Date Status Refusal Reason influenza virus vaccine, inactivated 06/30/23 Give n influenza virus vaccine, inactivated 08/26/22 Give n influenza virus vaccine, inactivated 07/21/21 Give n SARS-CoV-2 mRNA (zsagegs-qbhp-wnhuu) vax 11/21/21 Given tetanus/diphtheria/pertussis, acel(Tdap) 09/15/21 Given [...] 06/30/23 13:12:00 EDT, Route to Pharmacy Electronically, [facility] #[id number], Partial fill upon patient request if the prescription is for a miesha... Start Date: 06/30/23 Stop Date: 09/28/23 Status: Ordered omeprazole 20 mg oral enteric coated capsule 1 capsule, By Mouth, Daily, # 30 capsule, 0 Refills, Maintenance, 09/30/22 12:35:00 EST, [facility][id number], 154.5, cm, 08/26/22 9:56:00 EST, Height, 117, kg, 08/26/22 9:56:00 EST, Dry Weight Start Date: 09/30/22 Status: Ordered Multivitamins with Folic Acid 1 mg oral capsule See Instructions, TAKE ONE DAILY BY MOUTH, # 100 capsule, 3 Refills, Maintenance, 05/11/21 14:11:00EDT, [facility] #[id number], Partial fill upon patient request if the prescription is for a schedule II opioid drug., TAKE ONE DAILY BY MOUTH, 157... Start Date: 05/11/21 Status: Ordered ProAir HFA 90 mcg/inh inhalation aerosol with adapter 2, puffs, Inhalation, Every 6 hours, PRN, # 18 Gm, Refills 1, Tot. Refills 1, Maintenance, 05/26/2115:26:00 EDT, Aerosol, Route to Pharmacy Electronically, [id number], [facility] #[id number], 157, cm, 05/26/21 15:17:00... Start Date: 05/26/21 Status: Ordered Protective Ointment with Vitamins A&D topical ointment 1 applicator, Topically, Daily, apply on dry skin, # 120 Gm, 2 Refills, Maintenance, 06/30/23 13:12:00 EDT, [facility] #[id number], Partial fill upon patient request if the prescription is for aschedule II opioid drug., 1 applicator Topically Da... Start Date: 06/30/23 Status: Ordered triamcinolone 0.025% topical cream 1 application, Topically, 2 times a day, for 14 days, # 60 Gm, 1 Refills, Acute 07/28/23 13:12:00 EST, 06/30/23 13:12:00 EDT, Cream, [facility] #[id number], Partial fill upon patient request if the [...] mental health services at present. Informed of [facility] services - pt to call office and request services if needed. 2managed by PCP Social History Social History Type Response Smoking Status Never (less than 100 in lifetime); Exposure to Secondhand Smoke: No entered on: 07/28/21 Sex Patient Care team information Care Team Personnel Name: Davina Greer MD, V Position: [facility] Physician - Primary Care Member Role: PCP Address: Address: [address] [place] [address]- Care Team Related Persons Name: LAM REBOLLEDO Address: home [address] [place] [address] Name: ЕЛЕНА REBOLLEDO Address: home [address] [place] [address] Name: LAM SMALL Address: home [address] [place] [address] Name: CATALINA CASTLE Address: home [address] [place] [address] Name: TAMMY ANG Address: home [address] [place] [address] Name: KALIE ROSAS Address: [id number] Address: home [address] [place] [address] Name: ЕЛЕНА SCHMID Address: home [address] [place] [address]
--- OUTSIDE RECORDS SUMMARY | 2024-06-21 08:19 | XMS_ITS | Continuity of Care Document ---
Author Organization [facility] Address [address] [place] [address]- Care Team Providers Care Knocker Off Name Role Phone Percy BELLE, Davina Aguiar Primary Care Physician Encounter [facility] Date(s): 02/04/22 - 03/10/22 [facility] [address] [address]- Attending Physician: Not on Staff, Attending MD Allergies, Adverse Reactions, Alerts No Known Allergies Immunizations Given and Recorded Vaccine Date Status Refusal Reason SARS-CoV-2 mRNA (gbxcyjm-odoc-lcned) vax 11/21/21 Given tetanus/diphtheria/pertussis, acel(Tdap) 09/15/21 Given [...] 100 capsule, 3 Refills, Maintenance, 05/11/21 14:11:00EDT, [facility] #[id number], Partial fill upon patient request if the prescription is for a schedule II opioid drug., TAKE ONE DAILY BY MOUTH, 157... Start Date: 05/11/21 Status: Ordered ProAir HFA 90 mcg/inh inhalation aerosol with adapter 2, puffs, Inhalation, Every 6 hours, PRN, # 18 Gm, Refills 1, Tot. Refills 1, Maintenance, 05/26/2115:26:00 EDT, Aerosol, Route to Pharmacy Electronically, [id number], [facility] #[id number], 157, cm, 05/26/21 15:17:00... Start Date: 05/26/21 [...] mental health services at present. Informed of [facility] services - pt to call office and request services if needed. 2managed by PCP Social History Social History Type Response Smoking Status Never (less than 100 in lifetime); Exposure to Secondhand Smoke: No entered on: 07/28/21 Sex
--- OUTSIDE RECORDS SUMMARY | 2024-06-21 08:19 | XMS_ITS | Continuity of Care Document ---
Author Organization [facility] Address [address] [place] [address]- Care Team Providers Care Long [employer] Mining Machine Tender Name Role Phone Percy BELLE, Davina Aguiar Primary Care Physician [place] [facility] [place] Date(s): 01/31/22 - 03/05/22 [facility] [address] [address]- Attending Physician: Not on Staff, Attending MD Allergies, Adverse Reactions, Alerts No Known Allergies Immunizations Given and Recorded Vaccine Date Status Refusal Reason SARS-CoV-2 mRNA (mzpxnix-wdiu-umpon) vax 11/21/21 Given tetanus/diphtheria/pertussis, acel(Tdap) 09/15/21 Given [...] 100 capsule, 3 Refills, Maintenance, 05/11/21 14:11:00EDT, [facility] #[id number], Partial fill upon patient request if the prescription is for a schedule II opioid drug., TAKE ONE DAILY BY MOUTH, 157... Start Date: 05/11/21 Status: Ordered ProAir HFA 90 mcg/inh inhalation aerosol with adapter 2, puffs, Inhalation, Every 6 hours, PRN, # 18 Gm, Refills 1, Tot. Refills 1, Maintenance, 05/26/2115:26:00 EDT, Aerosol, Route to Pharmacy Electronically, [id number], [facility] #[id number], 157, cm, 05/26/21 15:17:00... Start Date: 05/26/21 [...] mental health services at present. Informed of [facility] services - pt to call office and request services if needed. 2managed by PCP Social History Social History Type Response Smoking Status Never (less than 100 in lifetime); Exposure to Secondhand Smoke: No entered on: 07/28/21 Sex
--- OUTSIDE RECORDS SUMMARY | 2024-06-21 08:19 | XMS_ITS | Continuity of Care Document ---
Author Organization [facility] Address [address] [place] [address]- Care Team Providers Care Special Machine Stitcher Name Role Phone Vishnu Sun MD Primary Care Physician [place] [facility] [place] Date(s): 07/04/23 - 08/03/23 [facility] [address]- [place] Allergies, Adverse Reactions, Alerts No Known Allergies Immunizations Given and Recorded Vaccine Date Status Refusal Reason influenza virus vaccine, inactivated 06/30/23 Give n influenza virus vaccine, inactivated 08/26/22 Give n influenza virus vaccine, inactivated 07/21/21 Give n SARS-CoV-2 mRNA ([id number]) vax 11/21/21 Given tetanus/diphtheria/pertussis, acel(Tdap) 09/15/21 Given [...] 06/30/23 13:12:00 EDT, Route to Pharmacy Electronically, [facility] #[id number], Partial fill upon patient request if the prescription is for a miesha... Start Date: 06/30/23 Stop Date: 09/28/23 Status: Ordered omeprazole 20 mg oral enteric coated capsule 1 capsule, By Mouth, Daily, # 30 capsule, 0 Refills, Maintenance, 09/30/22 12:35:00 EST, [facility] #[id number], 154.5, cm, 08/26/22 9:56:00 EST, Height, 117, kg, 08/26/22 9:56:00 EST, Dry Weight Start Date: 09/30/22 Status: Ordered Multivitamins with Folic Acid 1 mg oral capsule See Instructions, TAKE ONE DAILY BY MOUTH, # 100 capsule, 3 Refills, Maintenance, 05/11/21 14:11:00EDT, [facility] #[id number], Partial fill upon patient request if the prescription is for a schedule II opioid drug., TAKE ONE DAILY BY MOUTH, 157... Start Date: 05/11/21 Status: Ordered ProAir HFA 90 mcg/inh inhalation aerosol with adapter 2, puffs, Inhalation, Every 6 hours, PRN, # 18 Gm, Refills 1, Tot. Refills 1, Maintenance, 05/26/2115:26:00 EDT, Aerosol, Route to Pharmacy Electronically, [id number], [facility] #[id number], 157, cm, 05/26/21 15:17:00... Start Date: 05/26/21 Status: Ordered Protective Ointment with Vitamins A&D topical ointment 1 applicator, Topically, Daily, apply on dry skin, # 120 Gm, 2 Refills, Maintenance, 06/30/23 13:12:00 EDT, [facility] #[id number], Partial fill upon patient request if the [...] mental health services at present. Informed of [facility] services - pt to call office and request services if needed. 2managed by PCP Social History Social History Type Response Smoking Status Never (less than 100 in lifetime); Exposure to Secondhand Smoke: No entered on: 07/28/21 Sex Patient Care team information Care Team Personnel Name: Vishnu Sun MD Position: [facility] Resident Member Role: PCP Address: Address: [address] [place] [address]- Care Team Related Persons Name: LAM REBOLLEDO Address: home [address] [place] [address] Name: ЕЛЕНА REBOLLEDO Address: home [address] [place] [address] Name: LAM SMALL Address: home [address] [place] [address] Name: CATALINA CASTLE Address: home [address] [place] [address] Name: TAMMY ANG Address: home [address] [place] [address] Name: KALIE ROSAS Address: [id number] Address: home [address] [place] [address] Name: ЕЛЕНА SCHMID Address: home [address] [place] [address]
--- OUTSIDE RECORDS SUMMARY | 2024-06-21 08:19 | XMS_ITS | Continuity of Care Document ---
Author Organization [facility] Address [address] [place] [address]- Care Team Providers Care Master Data Analyst Name Role Phone Percy BELLE, Davina Aguiar Primary Care Physician Encounter [facility] Date(s): 04/13/21 - 05/13/[address] [address] Allergies, Adverse Reactions, Alerts Substance Reaction Severity [...] Date: 01/17/21 Stop Date: 01/24/21 Status: Ordered Multivitamins with Folic Acid 1 mg oral capsule See Instructions, TAKE ONE DAILY BY MOUTH, # 100 capsule, 3 Refills, Maintenance, 05/11/21 14:11:00EDT, [facility] #[id number], Partial fill upon patient request if the prescription is for a schedule II opioid drug., TAKE ONE DAILY BY MOUTH, 157... Start Date: 05/11/21 Status: Ordered Problem List Condition Effective Dates Status Health Status Inform ant H/O Anxiety(Confirmed) 1 Active Asthma(Confirmed) 2 Active H/O Cerebral concussion(Confirmed) 2014 Active Vaccinated with 1st/COVID-19(Confirmed) 05/11/21 Active H/O Eczema(Confirmed) Active H/O Irregular Menses(Confirmed) Active 1not engaged with mental health services at present. Informed of [facility] services - pt to call office and request services if needed. 2managed by PCP Social History Social History Type Response Smoking Status Never smoker; Tobacc o user in household: No entered on: 02/17/15 Sex
--- OUTSIDE RECORDS SUMMARY | 2024-06-21 08:19 | XMS_ITS | Continuity of Care Document ---
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 Start Date: 08/19/21 Status: Ordered Colace sodium 100 mg oral capsule 100 mg, 1, capsule, By Mouth, 2 times a day, PRN, # 60 capsule, Refills 1, Tot. Refills 1, Maintenance, for constipation, 05/26/21 15:26:00 EDT, Route to Pharmacy Electronically, [facility]#[id number], Partial fill upon patient request if the pr... Start Date: 05/26/21 Status: Ordered famotidine 20 mg oral tablet 20 mg, 1, tablet, By Mouth, Daily at bedtime, # 90 tablet, Refills 1, Tot. Refills 1, Maintenance, 09/29/21 16:45:00 EST, Route to Pharmacy Electronically, [facility] #[id number], Partial fill upon patient request if the prescription is for a miesha... Start Date: 09/29/21 Status: Ordered MiraLax oral powder for reconstitution = 17 Gm, By Mouth, Daily, dissolve in water before taking, # 255 Gm, 0 Refills, Maintenance, 07/16/21 16:52:00 EDT, REC Powder, [facility] #[id number], Partial fill upon patient request if the prescription is for a schedule II opioid drug., 17 Gm... Start Date: 07/16/21 Status: Ordered nitrofurantoin macrocrystals 100 mg oral capsule 1 capsule = 100 mg, By Mouth, 2 times a day, # 10 capsule, 0 Refills, Maintenance, 09/18/21 17:05:00 EST, Capsule, [facility][id number], Partial fill upon patient request if the prescription is for a schedule II opioid drug., 157, cm, 09/15/21... Start Date: 09/18/21 Stop Date: 09/23/21 Status: Ordered petrolatum topical 100% ointment See Instructions, Apply on dry skin BID for one month, # 450 Gm, 11 Refills, Maintenance, 07/28/21 17:16:00 EST, [facility][id number], Partial fill upon patient request if the prescription is for a schedule II opioid drug., Apply on dry skin BI... Start Date: 07/28/21 Status: Ordered Multivitamins with Folic Acid 1 mg oral capsule See Instructions, TAKE ONE DAILY BY MOUTH, # 100 capsule, 3 Refills, Maintenance, 05/11/21 14:11:00EDT, [facility][id number], Partial fill upon patient request if the prescription is for a schedule II opioid drug., TAKE ONE DAILY BY MOUTH, 157... Start Date: 05/11/21 Status: Ordered ProAir HFA 90 mcg/inh inhalation aerosol with adapter 2, puffs, Inhalation, Every 6 hours, PRN, # 18 Gm, Refills 1, Tot. Refills 1, Maintenance, 05/26/2115:26:00 EDT, Aerosol, Route to Pharmacy Electronically, [id number], [facility][id number], 157, cm, 05/26/21 15:17:00... Start Date: 05/26/21 Status: Ordered triamcinolone 0.1% topical lotion See Instructions, Topically 2 times a day apply a thin film to affected area, # 60 mL, 0 Refills, Maintenance, 09/29/21 16:45:00 EST, Lotion, [facility] #[id number], Partial fill upon patient request if the [...] health services at present. Informed of [facility] services - pt to call office and request services if needed. 2managed by PCP 3Urine Vital Signs Most recent to oldest [Reference Range]: 1 Oxygen Saturation [94-100 %] 98 % (10/12/21 4:40 PM) Blood Pressure [80-130/50-80 mm Hg] 99/6 3mm Hg (10/12/21 4:07 PM) Respiratory Rate [16-30 br/min] 18 br/mi n (10/12/21 4:07 PM) Social History Social History Type Response Smoking Status Never (less than 100 in lifetime); Exposure to Secondhand Smoke: No entered on: 07/28/21 Sex
--- OUTSIDE RECORDS SUMMARY | 2024-06-21 08:19 | XMS_ITS | Continuity of Care Document ---
Author Organization [facility] Address [address] [place] [address]- Care Team Providers Care Customer Advocate Name Role Phone Percy [place], Davina Aguiar Primary Care Physician Encounter [facility] Date(s): 01/07/22 - 01/14/22 [facility] [address] [place] [id number] Attending Physician: Can Maxwell MD Allergies, Adverse Reactions, Alerts No Known Allergies Immunizations Given and Recorded Vaccine Date Status Refusal Reason SARS-CoV-2 mRNA ([id number]) vax 11/21/21 Given tetanus/diphtheria/pertussis, acel(Tdap) 09/15/21 Given [...] 05/26/21 15:26:00 EDT, Route to Pharmacy Electronically, [facility][id number], Partial fill upon patient request if the pr... Start Date: 05/26/21 Status: Ordered Depo-Provera Inj = 150 mg, Intramuscular, Once, 0 Refills, Maintenance Start Date: 11/21/21 Status: Ordered famotidine 20 mg oral tablet 20 mg, 1, tablet, By Mouth, Daily at bedtime, # 90 tablet, Refills 1, Tot. Refills 1, Maintenance, 09/29/21 16:45:00 EST, Route to Pharmacy Electronically, [facility] #[id number], Partial fill upon patient request if the prescription is for a miesha... Start Date: 09/29/21 Status: Ordered MiraLax oral powder for reconstitution = 17 Gm, By Mouth, Daily, dissolve in water before taking, # 255 Gm, 0 Refills, Maintenance, 07/16/21 16:52:00 EDT, REC Powder, [facility] #[id number], Partial fill upon patient request if the prescription is for a schedule II opioid drug., 17 Gm... Start Date: 07/16/21 Status: Ordered Multivitamins with Folic Acid 1 mg oral capsule See Instructions, TAKE ONE DAILY BY MOUTH, # 100 capsule, 3 Refills, Maintenance, 05/11/21 14:11:00EDT, [facility] #[id number], Partial fill upon patient request if the prescription is for a schedule II opioid drug., TAKE ONE DAILY BY MOUTH, 157... Start Date: 05/11/21 Status: Ordered ProAir HFA 90 mcg/inh inhalation aerosol with adapter 2, puffs, Inhalation, Every 6 hours, PRN, # 18 Gm, Refills 1, Tot. Refills 1, Maintenance, 05/26/2115:26:00 EDT, Aerosol, Route to Pharmacy Electronically, [id number], [facility] #[id number], 157, cm, 05/26/21 15:17:00... Start Date: 05/26/21 [...] Most recent to oldest [Reference Range]: 1 Weight 105.2 kg (01/07/22 9:08 AM) Dry Weight 105.2 kg (01/07/22 9:08 AM) Weight Obtained Via Standing scale (01/07/22 9:08 AM) Dry Weight Obtained Via Standing scale (01/07/22 9:08 AM) Social History Social History Type Response Smoking Status Never (less than 100 in lifetime); Exposure to Secondhand Smoke: No entered on: 07/28/21 Sex
--- OUTSIDE RECORDS SUMMARY | 2024-06-21 08:19 | XMS_ITS | Continuity of Care Document ---
Author Organization [facility] Address [address] [place] [address]- Care Team Providers Care Shroudman Name Role Phone Percy BELLE, Davina Aguiar Primary Care Physician [place] [facility] 11/12/21 - 12/18/[address] [address]- Attending Physician: Do Stockton MD Admitting Physician: Do Stockton MD Referring Physician: Pearl Dorado CNM Allergies, Adverse Reactions, Alerts No Known Allergies Immunizations Given and Recorded Vaccine Date Status Refusal Reason SARS-CoV-2 mRNA ([id number]) vax 11/21/21 Given tetanus/diphtheria/pertussis, acel(Tdap) 09/15/21 Given [...] 05/26/21 15:26:00 EDT, Route to Pharmacy Electronically, [facility][id number], Partial fill upon patient request if the pr... Start Date: 05/26/21 Status: Ordered Depo-Provera Inj = 150 mg, Intramuscular, Once, 0 Refills, Maintenance Start Date: 11/21/21 Status: Ordered famotidine 20 mg oral tablet 20 mg, 1, tablet, By Mouth, Daily at bedtime, # 90 tablet, Refills 1, Tot. Refills 1, Maintenance, 09/29/21 16:45:00 EST, Route to Pharmacy Electronically, [facility] #[id number], Partial fill upon patient request if the prescription is for a miesha... Start Date: 09/29/21 Status: Ordered ibuprofen 400 mg oral tablet 400 mg, 1, tablet, By Mouth, Every 4 hours, PRN, for 5 days, # 30 tablet, Refills 0, Tot. Refills 0, Acute 12/21/21 11:58:00 EDT, for pain, 12/16/21 11:58:00 EDT, Route to Pharmacy Electronically, [facility], Partial fill upon patient re... Start Date: 12/16/21 Stop Date: 12/21/21 Status: Ordered MiraLax oral powder for reconstitution = 17 Gm, By Mouth, Daily, dissolve in water before taking, # 255 Gm, 0 Refills, Maintenance, 07/16/21 16:52:00 EDT, REC Powder, [facility] #[id number], Partial fill upon patient request if the prescription is for a schedule II opioid drug., 17 Gm... Start Date: 07/16/21 Status: Ordered Multivitamins with Folic Acid 1 mg oral capsule See Instructions, TAKE ONE DAILY BY MOUTH, # 100 capsule, 3 Refills, Maintenance, 05/11/21 14:11:00EDT, [facility] #[id number], Partial fill upon patient request if the prescription is for a schedule II opioid drug., TAKE ONE DAILY BY MOUTH, 157... Start Date: 05/11/21 Status: Ordered ProAir HFA 90 mcg/inh inhalation aerosol with adapter 2, puffs, Inhalation, Every 6 hours, PRN, # 18 Gm, Refills 1, Tot. Refills 1, Maintenance, 05/26/2115:26:00 EDT, Aerosol, Route to Pharmacy Electronically, [id number], [facility] #[id number], 157, cm, 05/26/21 15:17:00... Start Date: 05/26/21 Status: Ordered Tylenol 325 mg oral tablet 650 mg, 2, tablet, By Mouth, Every 4 hours, PRN, for 5 days, # 50 tablet, Refills 0, Tot. Refills 0, Acute 12/21/21 11:56:00 EDT, Pain , Mild, 12/16/21 11:56:00 EDT, Route to Pharmacy Electronically,[facility], Partial fill upon patient... Start Date: [...] mental health services at present. Informed of [facility] services - pt to call office and request services if needed. 2managed by PCP 3Urine Social History Social History Type Response Smoking Status Never (less than 100 in lifetime); Exposure to Secondhand Smoke: No entered on: 07/28/21 Sex
--- OUTSIDE RECORDS SUMMARY | 2024-06-21 08:19 | XMS_ITS | Continuity of Care Document ---
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 Name Role Phone Davina Greer MD, V Primary Care Physician [place] [facility] [place] Date(s): 04/12/21 - 04/13/[address] [address]- Encounter Diagnosis (Final) - 04/13/21 Discharge Disposition: A-D/C Home Attending Physician: Hermelinda Cuba MD Admitting Physician: Hermelinda Cuba MD Referring Physician: Not on Staff, Referring MD Allergies, Adverse Reactions, Alerts Substance Reaction Severity [...] periods irregular(Confirmed) Active Failed vision screen(Confirmed) Active Vital Signs Most recent to oldest [Reference Range]: 1 2 3 Height 157 cm (04/13/21 6:40 AM) 157 cm (04/13/21 3:44 AM) 157 cm (04/12/21 11:30 PM) Weight 102.8 kg (04/13/21 6:40 AM) 102.8 kg (04/13/21 3:44 AM) 102.8 kg (04/12/21 11:30 PM) Oxygen Saturation [94-100 %] 100 % (04/13/21 6:40 AM) 100 % (04/13/21 3:44 AM) 99 % (04/13/21 1:36 AM) Pulse Rate [55-90 bpm] 84 bpm (04/13/21 6:40 AM) 71 bpm (04/13/21 3:44 AM) 64 bpm (04/13/21 1:36 AM) Body Mass Index [18.5-24.99] 41.71 *>HHI* (04/13/21 6:40 AM) 41.71 *>HHI* (04/13/21 3:44 AM) 41.71 *>HHI* (04/12/21 11:30 PM) Blood Pressure [80-130/50-80 mm Hg] 94/56mm Hg (04/13/21 6:40 AM) 92/40mm Hg (04/13/21 3:44 AM) 109/47mm Hg (04/13/21 1:36 AM) Respiratory Rate [16-30 br/min] 17 br/min (04/13/21 6:40 AM) 18 br/min (04/13/21 3:44 AM) 20 br/min (04/13/21 1:36 AM) Temperature [96.8-100.4 DegF] 98.1 DegF (04/13/21 6:40 AM) 98.1 DegF (04/13/21 3:44 AM) 97.5 DegF (04/13/21 1:36 AM) Mode of Delivery (Oxygen) Room air (04/13/21 6:40 AM) Room air (04/13/21 3:44 AM) Room air (04/13/21 1:36 AM) Blood pressure sites Arm, left (04/13/21 6:40 AM) Arm, left (04/13/21 3:44 AM) Arm, left (04/13/21 1:36 AM) Temperature Route Oral (04/13/21 6:40 AM) Oral (04/13/21 3:44 AM) Oral (04/13/21 1:36 AM) Dry Weight 102.8 kg (04/13/21 6:40 AM) 102.8 kg (04/13/21 3:44 AM) 102.8 kg (04/12/21 11:30 PM) Weight Obtained Via Standing scale (04/12/21 8:53 PM) Dry Weight Obtained Via Standing scale (04/12/21 8:53 PM) Social History Social History Type Response Smoking Status Never smoker; Tobacc o user in household: No entered on: 02/17/15 Sex
--- OUTSIDE RECORDS SUMMARY | 2024-06-21 08:19 | XMS_ITS | Continuity of Care Document ---
Author Organization [facility] Address [address] [place] [address]- Care Team Providers Care Recreation Coordinator Name Role Phone Vishnu Sun MD Primary Care Physician [place] [facility] [place] 08/25/23 - 09/24/23 [facility] [address]- [place] Allergies, Adverse Reactions, Alerts No Known Allergies Immunizations Given and Recorded Vaccine Date Status Refusal Reason Meningococcal Conjugate Vaccine 08/28/23 Given Meningococcal Conjugate Vaccine 05/08/18 Recorded Hepatitis A Adult Vaccine 08/28/23 Given influenza virus vaccine, inactivated 06/30/23 Give n influenza virus vaccine, inactivated 08/26/22 Give n influenza virus vaccine, inactivated 07/21/21 Give n SARS-CoV-2 mRNA ([id number]) vax 11/21/21 Given tetanus/diphtheria/pertussis, acel(Tdap) 09/15/21 Given [...] 08/28/23 15:23:00 EST, Route to Pharmacy Electronically, [facility] #[id number], Partial fill upon patient request if the prescri... Start Date: 08/28/23 Status: Ordered Flonase Allergy Relief 50 mcg/inh nasal spray 1 sprays = 50 mcg, Nares, Both, Daily, shake well before using, # 9.9 mL, 0 Refills, Maintenance, 08/28/23 15:18:00 EST, [place], [facility] #[id number], Partial fill upon patient request if the prescription is for a schedule II opioid drug., 156,... Start Date: 08/28/23 Status: Ordered loratadine 10 mg oral tablet 10 mg, 1, tablet, By Mouth, Daily, PRN, # 30 tablet, Refills 2, Tot. Refills 2, Maintenance, Itch, 09/28/23 13:12:00 EST, Route to Pharmacy Electronically, [facility] #[id number], Partial fill upon patient request if the prescription is for a miesha... Start Date: 09/28/23 Stop Date: 12/27/23 Status: Ordered loratadine 10 mg oral tablet 10 mg, 1, tablet, By Mouth, Daily, PRN, for 30 days, # 30 tablet, Refills 2, Tot. Refills 2, Hard Stop 09/28/23 13:12:00 EST, [facility], 06/30/23 13:12:00 EDT, Route to Pharmacy Electronically, [facility] #[id number], Partial fill upon patient request... Start Date: 06/30/23 Stop Date: 09/28/23 Status: Ordered omeprazole 20 mg oral enteric coated capsule 1 capsule, By Mouth, Daily, # 14 capsule, 0 Refills, Maintenance, 09/12/23 18:52:00 EST, [facility] #[id number], 156, cm, 08/28/23 14:14:00 EST, Height, 114.3, kg, 08/28/23 14:14:00 EST, Dry Weight Start Date: 09/12/23 Stop Date: 09/26/23 Status: Ordered predniSONE 20 mg oral tablet See Instructions, 3 tab PO one time , then 2 tab PO one time a day for 4 days., # 11 tablet, 0 Refills, Maintenance, 08/28/23 15:19:00 EST, [facility] #[id number], Partial fill upon patient request if the prescription is for a schedule II opioid... Start Date: 08/28/23 Status: Ordered Protective Ointment with Vitamins A&D topical ointment 1 applicator, Topically, Daily, apply on dry skin, # 120 Gm, 2 Refills, Maintenance, 06/30/23 13:12:00 EDT, [facility] #[id number], Partial fill upon patient request if the [...] mental health services at present. Informed of [facility] services - pt to call office and request services if needed. 2managed by PCP Social History Social History Type Response Smoking Status Never (less than 100 in lifetime); Exposure to Secondhand Smoke: No entered on: 07/28/21 Sex Patient Care team information Care Team Personnel Name: Vishnu Sun MD Position: [facility] Resident Member Role: PCP Address: Address: [address] [place] [address]- Care Team Related Persons Name: LAM REBOLLEDO Address: home [address] [place] [address] Name: ЕЛЕНА REBOLLEDO Address: home [address] [place] [address] Name: LAM SMALL Address: home [address] [place] [address] Name: CATALINA CASTLE Address: home [address] [place] [address] Name: TAMMY ANG Address: home [address] [place] [address] Name: KALIE ROSAS Address: [address] Address: home [address] [place] [address] Name: ЕЛЕНА SCHMID Address: home [address] [place] [address]
--- OUTSIDE RECORDS SUMMARY | 2024-06-21 08:19 | XMS_ITS | Continuity of Care Document ---
Author Organization [facility] Address [address] [place] [address]- Care Team Providers Care Cable Maker Name Role Phone Vishnu Sun MD Primary Care Physician [phone] Encounter [facility] Date(s): 02/02/24 - 03/17/24 [facility] [address]- Attending Physician: Curtis Tan MD Admitting Physician: Curtis Tan MD Allergies, Adverse Reactions, Alerts No Known Allergies Immunizations Given and Recorded Vaccine Date Status Refusal Reason Meningococcal Conjugate Vaccine 08/28/23 Given Meningococcal Conjugate Vaccine 05/08/18 Recorded Hepatitis A Adult Vaccine 08/28/23 Given influenza virus vaccine, inactivated 06/30/23 Give n influenza virus vaccine, inactivated 08/26/22 Give n influenza virus vaccine, inactivated 07/21/21 Give n SARS-CoV-2 mRNA (dajyduv-efum-pmtln) vax 11/21/21 Given tetanus/diphtheria/pertussis, acel(Tdap) 09/15/21 Given [...] 08/28/23 15:23:00 EST, Route to Pharmacy Electronically, [facility] #[id number], Partial fill upon patient request if the prescri... Start Date: 08/28/23 Status: Ordered fluticasone 50 mcg/inh nasal spray See Instructions, SHAKE LIQUID AND USE 1 SPRAY IN EACH NOSTRIL DAILY SHAKE WELL BEFORE USING, # 16 Gm, 11 Refills, Maintenance, 09/29/23 17:26:00 EST, [facility] #[id number], 30, SHAKE LIQUID AND USE 1 SPRAY IN EACH NOSTRIL DAILY SHAKE WELL BEFOR... Start Date: 09/29/23 Status: Ordered Imodium A-D 2 mg oral tablet 2 mg, 1, tablet, By Mouth, 2 times a day, for 14 days, # 60 tablet, Refills 3, Tot. Refills 3, Acute 03/29/24 16:58:00 EDT, 02/02/24 16:58:00 EDT, Route to Pharmacy Electronically, [facility] #[id number], Partial fill upon patient request if the... Start Date: 02/02/24 Stop Date: 03/29/24 Status: Ordered loratadine 10 mg oral tablet 10 mg, 1, tablet, By Mouth, Daily, PRN, # 30 tablet, Refills 2, Tot. Refills 2, Maintenance, Itch, 09/28/23 13:12:00 EST, Route to Pharmacy Electronically, [facility] #[id number], Partial fill upon patient request if the prescription is for a miesha... Start Date: 09/28/23 Stop Date: 12/27/23 Status: Ordered omeprazole 20 mg oral enteric coated capsule 1 capsule, By Mouth, Daily, # 14 capsule, 0 Refills, Maintenance, 09/12/23 18:52:00 EST, [facility] #[id number], 156, cm, 08/28/23 14:14:00 EST, Height, 114.3, kg, 08/28/23 14:14:00 EST, Dry Weight Start Date: 09/12/23 Stop Date: 09/26/23 Status: Ordered predniSONE 20 mg oral tablet See Instructions, 3 tab PO one time , then 2 tab PO one time a day for 4 days., # 11 tablet, 0 Refills, Maintenance, 08/28/23 15:19:00 EST, [facility] #[id number], Partial fill upon patient request if the prescription is for a schedule II opioid... Start Date: 08/28/23 Status: Ordered Protective Ointment with Vitamins A&D topical ointment 1 applicator, Topically, Daily, apply on dry skin, # 120 Gm, 2 Refills, Maintenance, 06/30/23 13:12:00 EDT, [facility] #[id number], Partial fill upon patient request if the [...] mental health services at present. Informed of [facility] services - pt to call office and request services if needed. 2managed by PCP Social History Social History Type Response Smoking Status Never (less than 100 in lifetime); Exposure to Secondhand Smoke: No entered on: 02/02/24 Sex Patient Care team information Care Team Personnel Name: Vishnu Sun MD Position: [facility] Resident Member Role: PCP Address: Address: [address] [place] [address]- Care Team Related Persons Name: LAM REBOLLEDO Address: home [address] [place] [address] Name: ЕЛЕНА REBOLLEDO Address: home [address] [place] [address] Name: LAM SMALL Address: home [address] [place] [address] Name: CATALINA CASTLE Address: home [address] [place] [address] Name: TAMMY ANG Address: home [address] [place] [address] Name: KALIE ROSAS Address: [id number] Address: home [address] [place] [address] Name: ЕЛЕНА SCHMID Address: home [address] [place] [address]
--- OUTSIDE RECORDS SUMMARY | 2024-06-21 08:19 | XMS_ITS | Continuity of Care Document ---
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 Start Date: 08/19/21 Status: Ordered Colace sodium 100 mg oral capsule 100 mg, 1, capsule, By Mouth, 2 times a day, PRN, # 60 capsule, Refills 1, Tot. Refills 1, Maintenance, for constipation, 05/26/21 15:26:00 EDT, Route to Pharmacy Electronically, [facility]#[id number], Partial fill upon patient request if the pr... Start Date: 05/26/21 Status: Ordered famotidine 20 mg oral tablet 20 mg, 1, tablet, By Mouth, Daily at bedtime, # 90 tablet, Refills 1, Tot. Refills 1, Maintenance, 09/29/21 16:45:00 EST, Route to Pharmacy Electronically, [facility] #[id number], Partial fill upon patient request if the prescription is for a miesha... Start Date: 09/29/21 Status: Ordered MetroGel 1% topical gel 1 application, Topically, Daily, # 45 Gm, 0 Refills, Maintenance, 10/24/21 5:43:00 EST, Gel, [facility] #[id number], Partial fill upon patient request if the prescription is for a schedule II opioid drug., 1 application Topically Daily,x7 days, 1... Start Date: 10/24/21 Stop Date: 10/31/21 Status: Ordered MiraLax oral powder for reconstitution = 17 Gm, By Mouth, Daily, dissolve in water before taking, # 255 Gm, 0 Refills, Maintenance, 07/16/21 16:52:00 EDT, REC Powder, [facility] #[id number], Partial fill upon patient request if the prescription is for a schedule II opioid drug., 17 Gm... Start Date: 07/16/21 Status: Ordered nitrofurantoin macrocrystals 100 mg oral capsule 1 capsule = 100 mg, By Mouth, 2 times a day, # 10 capsule, 0 Refills, Maintenance, 09/18/21 17:05:00 EST, Capsule, [facility] #[id number], Partial fill upon patient request if the prescription is for a schedule II opioid drug., 157, cm, 09/15/21... Start Date: 09/18/21 Stop Date: 09/23/21 Status: Ordered petrolatum topical 100% ointment See Instructions, Apply on dry skin BID for one month, # 450 Gm, 11 Refills, Maintenance, 07/28/21 17:16:00 EST, [facility] #[id number], Partial fill upon patient request if the prescription is for a schedule II opioid drug., Apply on dry skin BI... Start Date: 07/28/21 Status: Ordered Multivitamins with Folic Acid 1 mg oral capsule See Instructions, TAKE ONE DAILY BY MOUTH, # 100 capsule, 3 Refills, Maintenance, 05/11/21 14:11:00EDT, [facility] #[id number], Partial fill upon patient request if the prescription is for a schedule II opioid drug., TAKE ONE DAILY BY MOUTH, 157... Start Date: 05/11/21 Status: Ordered ProAir HFA 90 mcg/inh inhalation aerosol with adapter 2, puffs, Inhalation, Every 6 hours, PRN, # 18 Gm, Refills 1, Tot. Refills 1, Maintenance, 05/26/2115:26:00 EDT, Aerosol, Route to Pharmacy Electronically, [id number], [facility] #[id number], 157, cm, 05/26/21 15:17:00... Start Date: 05/26/21 Status: Ordered triamcinolone 0.1% topical lotion See Instructions, Topically 2 times a day apply a thin film to affected area, # 60 mL, 0 Refills, Maintenance, 09/29/21 16:45:00 EST, Lotion, [facility] #[id number], Partial fill upon patient request if the [...] services at present. Informed of [facility] services - pt to call office and request services if needed. 2managed by PCP 3Urine Vital Signs Most recent to oldest [Reference Range]: 1 2 3 Weight 109.5 kg (10/24/21 9:57 PM) Oxygen Saturation [94-100 %] 99 % (10/25/21 1:40 AM) 97 % (10/25/21 1:30 AM) 97 % (10/25/21 12:40 AM) Blood Pressure [80-130/50-80 mm Hg] 100/58mm Hg (10/24/21 10:12 PM) Respiratory Rate [16-30 br/min] 18 br/min (10/24/21 10:12 PM) 18 br/min (10/24/21 10:05 PM) Temperature [96.8-100.4 DegF] 98.3 DegF (10/24/21 10:05 PM) Mode of Delivery (Oxygen) Room air (10/24/21 10:12 PM) Room air (10/24/21 10:05 PM) Blood pressure sites Arm, right (10/24/21 10:12 PM) Temperature Route Oral (10/24/21 10:05 PM) Dry Weight 109.5 kg (10/24/21 9:57 PM) Weight Obtained Via Standing scale (10/24/21 9:57 PM) Social History Social History Type Response Smoking Status Never (less than 100 in lifetime); Exposure to Secondhand Smoke: No entered on: 07/28/21 Sex
--- OUTSIDE RECORDS SUMMARY | 2024-06-21 08:19 | XMS_ITS | Continuity of Care Document ---
Author Organization [facility] Address [address] [place] [address]- Care Team Providers Care Middle School Coach Name Role Phone Percy BELLE, Davina Aguiar Primary Care Physician Encounter [facility] Date(s): 03/03/22 - 04/07/22 [facility] [address] [address]- Attending Physician: Not on Staff, Attending MD Allergies, Adverse Reactions, Alerts No Known Allergies Immunizations Given and Recorded Vaccine Date Status Refusal Reason SARS-CoV-2 mRNA (ebapnjh-xpjg-juuza) vax 11/21/21 Given tetanus/diphtheria/pertussis, acel(Tdap) 09/15/21 Given [...] 100 capsule, 3 Refills, Maintenance, 05/11/21 14:11:00EDT, [facility] #[id number], Partial fill upon patient request if the prescription is for a schedule II opioid drug., TAKE ONE DAILY BY MOUTH, 157... Start Date: 05/11/21 Status: Ordered ProAir HFA 90 mcg/inh inhalation aerosol with adapter 2, puffs, Inhalation, Every 6 hours, PRN, # 18 Gm, Refills 1, Tot. Refills 1, Maintenance, 05/26/2115:26:00 EDT, Aerosol, Route to Pharmacy Electronically, [id number], [facility] #[id number], 157, cm, 05/26/21 15:17:00... Start Date: 05/26/21 [...] health services at present. Informed of [facility] services - pt to call office and request services if needed. 2managed by PCP Social History Social History Type Response Smoking Status Never (less than 100 in lifetime); Exposure to Secondhand Smoke: No entered on: 07/28/21 Sex
--- OUTSIDE RECORDS SUMMARY | 2024-06-21 08:19 | XMS_ITS | Continuity of Care Document ---
Author Organization [facility] Address [address] [place] [address]- Care Team Providers Care Glass Setter Name Role Phone Percy BELLE, Davina Aguair Primary Care Physician Encounter [facility] Date(s): 01/31/22 - 04/02/22 [facility] [address] [address]- Attending Physician: Not on Staff, Attending MD Allergies, Adverse Reactions, Alerts No Known Allergies Immunizations Given and Recorded Vaccine Date Status Refusal Reason SARS-CoV-2 mRNA (jqzdjin-xcap-wuosc) vax 11/21/21 Given tetanus/diphtheria/pertussis, acel(Tdap) 09/15/21 Given [...] 100 capsule, 3 Refills, Maintenance, 05/11/21 14:11:00EDT, [facility] #[id number], Partial fill upon patient request if the prescription is for a schedule II opioid drug., TAKE ONE DAILY BY MOUTH, 157... Start Date: 05/11/21 Status: Ordered ProAir HFA 90 mcg/inh inhalation aerosol with adapter 2, puffs, Inhalation, Every 6 hours, PRN, # 18 Gm, Refills 1, Tot. Refills 1, Maintenance, 05/26/2115:26:00 EDT, Aerosol, Route to Pharmacy Electronically, [id number], [facility] #[id number], 157, cm, 05/26/21 15:17:00... Start Date: 05/26/21 [...] health services at present. Informed of [facility] services - pt to call office and request services if needed. 2managed by PCP Social History Social History Type Response Smoking Status Never (less than 100 in lifetime); Exposure to Secondhand Smoke: No entered on: 07/28/21 Sex
--- OUTSIDE RECORDS SUMMARY | 2024-06-21 08:19 | XMS_ITS | Continuity of Care Document ---
Author Organization [facility] Address [address] [place] [address], [address] [place] [address]- Care Team Providers Care Data Processing Supervisor Name Role Phone Percy BELLE, Davina Aguiar Primary Care Physician Encounter [facility] Date(s): 06/09/23 - 07/09/23 [facility] [employer] [facility] [address] [facility], 4[address] [place], [place] [address] Allergies, Adverse Reactions, Alerts No Known Allergies Immunizations Given and Recorded Vaccine Date Status Refusal Reason influenza virus vaccine, inactivated 06/30/23 Give n influenza virus vaccine, inactivated 08/26/22 Give n influenza virus vaccine, inactivated 07/21/21 Give n SARS-CoV-2 mRNA (nyabglo-ptxm-kduok) vax 11/21/21 Given tetanus/diphtheria/pertussis, acel(Tdap) 09/15/21 Given [...] 06/30/23 13:12:00 EDT, Route to Pharmacy Electronically, [facility] #[id number], Partial fill upon patient request if the prescription is for a miesha... Start Date: 06/30/23 Stop Date: 09/28/23 Status: Ordered omeprazole 20 mg oral enteric coated capsule 1 capsule, By Mouth, Daily, # 30 capsule, 0 Refills, Maintenance, 09/30/22 12:35:00 EST, [facility] #[id number], 154.5, cm, 08/26/22 9:56:00 EST, Height, 117, kg, 08/26/22 9:56:00 EST, Dry Weight Start Date: 09/30/22 Status: Ordered Multivitamins with Folic Acid 1 mg oral capsule See Instructions, TAKE ONE DAILY BY MOUTH, # 100 capsule, 3 Refills, Maintenance, 05/11/21 14:11:00EDT, [facility] #[id number], Partial fill upon patient request if the prescription is for a schedule II opioid drug., TAKE ONE DAILY BY MOUTH, 157... Start Date: 05/11/21 Status: Ordered ProAir HFA 90 mcg/inh inhalation aerosol with adapter 2, puffs, Inhalation, Every 6 hours, PRN, # 18 Gm, Refills 1, Tot. Refills 1, Maintenance, 05/26/2115:26:00 EDT, Aerosol, Route to Pharmacy Electronically, [id number], [facility] #[id number], 157, cm, 05/26/21 15:17:00... Start Date: 05/26/21 Status: Ordered Protective Ointment with Vitamins A&D topical ointment 1 applicator, Topically, Daily, apply on dry skin, # 120 Gm, 2 Refills, Maintenance, 06/30/23 13:12:00 EDT, [facility] #[id number], Partial fill upon patient request if the prescription is for aschedule II opioid drug., 1 applicator Topically Da... Start Date: 06/30/23 Status: Ordered triamcinolone 0.025% topical cream 1 application, Topically, 2 times a day, for 14 days, # 60 Gm, 1 Refills, Acute 07/28/23 13:12:00 EST, 06/30/23 13:12:00 EDT, Cream, [facility] #[id number], Partial fill upon patient request if the [...] Personnel Name: Percy BELLE, Davina Aguiar Position: [facility] Physician - Primary Care Member Role: PCP Address: Address: [address] [place] [address]- Care Team Related Persons Name: LAM REBOLLEDO Address: home [address] [place] [address] Name: ЕЛЕНА REBOLLEDO Address: home [address] [place] [address] Name: LAM SMALL Address: home [address] [place] [address] Name: CATALINA CASTLE Address: home [address] [place] [address] Name: TAMMY ANG Address: home [address] [place] [address] Name: KALIE ROSAS Address: [address] Address: home [address] [place] [address] Name: ЕЛЕНА SCHMID Address: home [address] [place] [address]
--- OUTSIDE RECORDS SUMMARY | 2024-06-21 08:19 | XMS_ITS | Continuity of Care Document ---
Author Organization [facility] Address [address] [place] [address]- Care Team Providers Care Cotton Weigher Name Role Phone Vishnu Sun MD Primary Care Physician Encounter [place] Date(s): 01/29/24 - 02/28/24 [facility] [address]- Allergies, Adverse Reactions, Alerts No Known Allergies Immunizations Given and Recorded Vaccine Date Status Refusal Reason Meningococcal Conjugate Vaccine 08/28/23 Given Meningococcal Conjugate Vaccine 05/08/18 Recorded Hepatitis A Adult Vaccine 08/28/23 Given influenza virus vaccine, inactivated 06/30/23 Give n influenza virus vaccine, inactivated 08/26/22 Give n influenza virus vaccine, inactivated 07/21/21 Give n SARS-CoV-2 mRNA (tvopwoj-cpuz-vhfhu) vax 11/21/21 Given tetanus/diphtheria/pertussis, acel(Tdap) 09/15/21 Given [...] 08/28/23 15:23:00 EST, Route to Pharmacy Electronically, [facility] #[id number], Partial fill upon patient request if the prescri... Start Date: 08/28/23 Status: Ordered fluticasone 50 mcg/inh nasal spray See Instructions, SHAKE LIQUID AND USE 1 SPRAY IN EACH NOSTRIL DAILY SHAKE WELL BEFORE USING, # 16 Gm, 11 Refills, Maintenance, 09/29/23 17:26:00 EST, [facility] #[id number], 30, SHAKE LIQUID AND USE 1 SPRAY IN EACH NOSTRIL DAILY SHAKE WELL BEFOR... Start Date: 09/29/23 Status: Ordered Imodium A-D 2 mg oral tablet 2 mg, 1, tablet, By Mouth, 2 times a day, for 14 days, # 60 tablet, Refills 3, Tot. Refills 3, Acute 03/29/24 16:58:00 EDT, 02/02/24 16:58:00 EDT, Route to Pharmacy Electronically, [facility] #[id number], Partial fill upon patient request if the... Start Date: 02/02/24 Stop Date: 03/29/24 Status: Ordered loratadine 10 mg oral tablet 10 mg, 1, tablet, By Mouth, Daily, PRN, # 30 tablet, Refills 2, Tot. Refills 2, Maintenance, Itch, 09/28/23 13:12:00 EST, Route to Pharmacy Electronically, [facility] #[id number], Partial fill upon patient request if the prescription is for a miesha... Start Date: 09/28/23 Stop Date: 12/27/23 Status: Ordered omeprazole 20 mg oral enteric coated capsule 1 capsule, By Mouth, Daily, # 14 capsule, 0 Refills, Maintenance, 09/12/23 18:52:00 EST, [facility] #[id number], 156, cm, 08/28/23 14:14:00 EST, Height, 114.3, kg, 08/28/23 14:14:00 EST, Dry Weight Start Date: 09/12/23 Stop Date: 09/26/23 Status: Ordered predniSONE 20 mg oral tablet See Instructions, 3 tab PO one time , then 2 tab PO one time a day for 4 days., # 11 tablet, 0 Refills, Maintenance, 08/28/23 15:19:00 EST, [facility] #[id number], Partial fill upon patient request if the prescription is for a schedule II opioid... Start Date: 08/28/23 Status: Ordered Protective Ointment with Vitamins A&D topical ointment 1 applicator, Topically, Daily, apply on dry skin, # 120 Gm, 2 Refills, Maintenance, 06/30/23 13:12:00 EDT, [facility] #[id number], Partial fill upon patient request if the [...] mental health services at present. Informed of [facility] services - pt to call office and request services if needed. 2managed by PCP Social History Social History Type Response Smoking Status Never (less than 100 in lifetime); Exposure to Secondhand Smoke: No entered on: 02/02/24 Sex Patient Care team information Care Team Personnel Name: Vishnu Sun MD Position: [facility] Resident Member Role: PCP Address: Address: [address] [place] [address]- Care Team Related Persons Name: LAM REBOLLEDO Address: home [address] [place] [address] Name: ЕЛЕНА REBOLLEDO Address: home [address] [place] [address] Name: LAM SMALL Address: home [address] [place] [phone] Name: CATALINA CASTLE Address: home [address] [place] [address] Name: TAMMY ANG Address: home [address] [place] [address] Name: KALIE ROSAS Address: [id number] Address: home [address] [place] [address] Name: ЕЛЕНА SCHMID Address: home [address] [place] [address]
--- OUTSIDE RECORDS SUMMARY | 2024-06-21 08:20 | XMS_ITS | Continuity of Care Document ---
Author Organization [facility] Address [address] [place] [address]- Care Team Providers Care Fire Pot Operator Name Role Phone Percy BELLE, Davina Aguiar Primary Care Physician [place] [facility] [place] 08/08/22 - 09/07/22 [facility] [place] [facility] [address]- [place] Allergies, Adverse Reactions, Alerts No Known Allergies Immunizations Given and Recorded Vaccine Date Status Refusal Reason influenza virus vaccine, inactivated 08/26/22 Give n influenza virus vaccine, inactivated 07/21/21 Give n SARS-CoV-2 mRNA (komursi-fwai-pzydc) vax 11/21/21 Given tetanus/diphtheria/pertussis, acel(Tdap) 09/15/21 Given [...] capsule, 0 Refills, Maintenance, 08/26/22 10:39:00 EST, [facility], [facility] #[id number], Partial fill upon patient request if the prescription is for a schedule II opioid drug., 154.5, cm, 08/26/22 9:56... Start Date: 08/26/22 Status: Ordered Multivitamins with Folic Acid 1 mg oral capsule See Instructions, TAKE ONE DAILY BY MOUTH, # 100 capsule, 3 Refills, Maintenance, 05/11/21 14:11:00EDT, [facility] #[id number], Partial fill upon patient request if the prescription is for a schedule II opioid drug., TAKE ONE DAILY BY MOUTH, 157... Start Date: 05/11/21 Status: Ordered ProAir HFA 90 mcg/inh inhalation aerosol with adapter 2, puffs, Inhalation, Every 6 hours, PRN, # 18 Gm, Refills 1, Tot. Refills 1, Maintenance, 05/26/2115:26:00 EDT, Aerosol, Route to Pharmacy Electronically, [id number], [facility] #[id number], 157, cm, 05/26/21 15:17:00... Start Date: 05/26/21 Status: Ordered triamcinolone 0.025% topical cream 1 application, Topically, 2 times a day, for 14 days, # 60 Gm, 1 Refills, Acute 09/23/22 10:39:00 EST, 08/26/22 10:39:00 EST, Cream, [facility] #[id number], Partial fill upon patient request if the [...] mental health services at present. Informed of [facility] services - pt to call office and request services if needed. 2managed by PCP Social History Social History Type Response Smoking Status Never (less than 100 in lifetime); Exposure to Secondhand Smoke: No entered on: 07/28/21 Sex Patient Care team information Care Team Personnel Name: Davina Greer MD, V Position: [facility] Primary Care Physician Member Role: PCP Address: Address: [address] [place] [address]- Care Team Related Persons Name: ЕЛЕНА REBOLLEDO Address: home [address] [place] [address] Name: LAM SMALL Address: home [address] [place] [address] Name: CATALINA CASTLE Address: home [address] [place] [address] Name: TAMMY ANG Address: home [address] [place] [address] Name: KALIE ROSAS Address: [address] Address: home [address] [place] [address] [place] Name: ЕЛЕНА SCHMID Address: home [address] [place] [address]
--- OUTSIDE RECORDS SUMMARY | 2024-06-21 08:20 | XMS_ITS | Continuity of Care Document ---
Author Organization [facility] Address [address] [place] [address]- Care Team Providers Care Fashion Journalist Name Role Phone Vishnu Sun MD Primary Care Physician [facility]counter [facility] Date(s): 07/04/23 - 08/03/23 [facility] [address]- [place] Allergies, Adverse Reactions, Alerts No Known Allergies Immunizations Given and Recorded Vaccine Date Status Refusal Reason influenza virus vaccine, inactivated 06/30/23 Give n influenza virus vaccine, inactivated 08/26/22 Give n influenza virus vaccine, inactivated 07/21/21 Give n SARS-CoV-2 mRNA (mglgpgd-fecf-iprdj) vax 11/21/21 Given tetanus/diphtheria/pertussis, acel(Tdap) 09/15/21 Given [...] 06/30/23 13:12:00 EDT, Route to Pharmacy Electronically, [facility] #[id number], Partial fill upon patient request if the prescription is for a miesha... Start Date: 06/30/23 Stop Date: 09/28/23 Status: Ordered omeprazole 20 mg oral enteric coated capsule 1 capsule, By Mouth, Daily, # 30 capsule, 0 Refills, Maintenance, 09/30/22 12:35:00 EST, [facility] #[id number], 154.5, cm, 08/26/22 9:56:00 EST, Height, 117, kg, 08/26/22 9:56:00 EST, Dry Weight Start Date: 09/30/22 Status: Ordered Multivitamins with Folic Acid 1 mg oral capsule See Instructions, TAKE ONE DAILY BY MOUTH, # 100 capsule, 3 Refills, Maintenance, 05/11/21 14:11:00EDT, [facility] #[id number], Partial fill upon patient request if the prescription is for a schedule II opioid drug., TAKE ONE DAILY BY MOUTH, 157... Start Date: 05/11/21 Status: Ordered ProAir HFA 90 mcg/inh inhalation aerosol with adapter 2, puffs, Inhalation, Every 6 hours, PRN, # 18 Gm, Refills 1, Tot. Refills 1, Maintenance, 05/26/2115:26:00 EDT, Aerosol, Route to Pharmacy Electronically, [id number], [facility] #[id number], 157, cm, 05/26/21 15:17:00... Start Date: 05/26/21 Status: Ordered Protective Ointment with Vitamins A&D topical ointment 1 applicator, Topically, Daily, apply on dry skin, # 120 Gm, 2 Refills, Maintenance, 06/30/23 13:12:00 EDT, [facility] #[id number], Partial fill upon patient request if the [...] mental health services at present. Informed of [facility] services - pt to call office and request services if needed. 2managed by PCP Social History Social History Type Response Smoking Status Never (less than 100 in lifetime); Exposure to Secondhand Smoke: No entered on: 07/28/21 Sex Patient Care team information Care Team Personnel Name: Vishnu Sun MD Position: [facility] Resident Member Role: PCP Address: Address: [address] [place] [address]- Care Team Related Persons Name: LAM REBOLLEDO Address: home [address] [place] [address] Name: ЕЛЕНА REBOLLEDO Address: home [address] [place] [address] Name: LAM SMALL Address: home [address] [place] [address] Name: CATALINA CASTLE Address: home [address] [place] [address] Name: TAMMY ANG Address: home [address] [place] [address] Name: KALIE ROSAS Address: [address] Address: home [address] [place] [address] Name: ЕЛЕНА SCHMID Address: home [address] [place] [address]
--- OUTSIDE RECORDS SUMMARY | 2024-06-21 08:20 | XMS_ITS | Continuity of Care Document ---
Author Organization [facility] Address [address] [place] [address]- Care Team Providers Care Station Mechanic Name Role Phone Vishnu Sun MD Primary Care Physician [phone] Encounter [facility] [place] Date(s): 08/28/23 - 09/27/23 [facility]/[place] [address]- Attending Physician: Olivia Vaca Admitting Physician: AdmOlivia [...] vaccine, inactivated 07/21/21 Give n SARS-CoV-2 mRNA (lklubcg-rrue-tdacm) vax 11/21/21 Given tetanus/diphtheria/pertussis, acel(Tdap) 09/15/21 Given [...] 08/28/23 15:23:00 EST, Route to Pharmacy Electronically, [facility] #[id number], Partial fill upon patient request if the prescri... Start Date: 08/28/23 Status: Ordered Flonase Allergy Relief 50 mcg/inh nasal spray 1 sprays = 50 mcg, Nares, Both, Daily, shake well before using, # 9.9 mL, 0 Refills, Maintenance, 08/28/23 15:18:00 EST, [place], [facility] #[id number], Partial fill upon patient request if the prescription is for a schedule II opioid drug., 156,... Start Date: 08/28/23 Status: Ordered loratadine 10 mg oral tablet 10 mg, 1, tablet, By Mouth, Daily, PRN, # 30 tablet, Refills 2, Tot. Refills 2, Maintenance, Itch, 09/28/23 13:12:00 EST, Route to Pharmacy Electronically, [facility] #[id number], Partial fill upon patient request if the prescription is for a miesha... Start Date: 09/28/23 Stop Date: 12/27/23 Status: Ordered loratadine 10 mg oral tablet 10 mg, 1, tablet, By Mouth, Daily, PRN, for 30 days, # 30 tablet, Refills 2, Tot. Refills 2, Hard Stop 09/28/23 13:12:00 EST, [facility], 06/30/23 13:12:00 EDT, Route to Pharmacy Electronically, [facility] #[id number], Partial fill upon patient request... Start Date: 06/30/23 Stop Date: 09/28/23 Status: Ordered omeprazole 20 mg oral enteric coated capsule 1 capsule, By Mouth, Daily, # 14 capsule, 0 Refills, Maintenance, 09/12/23 18:52:00 EST, [facility] #[id number], 156, cm, 08/28/23 14:14:00 EST, Height, 114.3, kg, 08/28/23 14:14:00 EST, Dry Weight Start Date: 09/12/23 Stop Date: 09/26/23 Status: Ordered predniSONE 20 mg oral tablet See Instructions, 3 tab PO one time , then 2 tab PO one time a day for 4 days., # 11 tablet, 0 Refills, Maintenance, 08/28/23 15:19:00 EST, [facility] #[id number], Partial fill upon patient request if the prescription is for a schedule II opioid... Start Date: 08/28/23 Status: Ordered Protective Ointment with Vitamins A&D topical ointment 1 applicator, Topically, Daily, apply on dry skin, # 120 Gm, 2 Refills, Maintenance, 06/30/23 13:12:00 EDT, [facility] #[id number], Partial fill upon patient request if the [...] health services at present. Informed of [facility] services - pt to call office and request services if needed. 2managed by PCP Social History Social History Type Response Smoking Status Never (less than 100 in lifetime); Exposure to Secondhand Smoke: No entered on: 07/28/21 Sex Patient Care team information Care Team Personnel Name: Vishnu Sun MD Position: [facility] Resident Member Role: PCP Address: Address: [address] [place] [address]- Care Team Related Persons Name: LAM REBOLLEDO Address: home [address] [place] [address] Name: ЕЛЕНА REBOLLEDO Address: home [address] [place] [address] Name: LAM SMALL Address: home [address] [place] [address] Name: CATALINA CASTLE Address: home [address] [place] [address] Name: TAMMY ANG Address: home [address] [place] [address] Name: KALIE ROSAS Address: [id number] Address: home [address] [place] [address] Name: ЕЛЕНА SCHMID Address: home [address] [place] [address]
--- OUTSIDE RECORDS SUMMARY | 2024-06-21 08:20 | XMS_ITS | Continuity of Care Document ---
Author Organization [facility] Address [address] [place] [address]- Care Team Providers Care Feather Renovator Name Role Phone Davina Greer MD, V Primary Care Physician Encounter [facility] [place] Date(s): 06/30/23 - 07/30/23 [facility]/[place] [address]- Attending Physician: Admjoshua, Olivia Admitting Physician: Admtr, Ar8 Referring Physician: Admtr, Ar8 Allergies, Adverse Reactions, Alerts No Known Allergies Immunizations Given and Recorded Vaccine Date Status Refusal Reason influenza virus vaccine, inactivated 06/30/23 Give n influenza virus vaccine, inactivated 08/26/22 Give n influenza virus vaccine, inactivated 07/21/21 Give n SARS-CoV-2 mRNA (yuohhml-onhj-tjaxq) vax 11/21/21 Given tetanus/diphtheria/pertussis, acel(Tdap) 09/15/21 Given [...] 06/30/23 13:12:00 EDT, Route to Pharmacy Electronically, [facility] #[id number], Partial fill upon patient request if the prescription is for a miesha... Start Date: 06/30/23 Stop Date: 09/28/23 Status: Ordered omeprazole 20 mg oral enteric coated capsule 1 capsule, By Mouth, Daily, # 30 capsule, 0 Refills, Maintenance, 09/30/22 12:35:00 EST, [facility] #[id number], 154.5, cm, 08/26/22 9:56:00 EST, Height, 117, kg, 08/26/22 9:56:00 EST, Dry Weight Start Date: 09/30/22 Status: Ordered Multivitamins with Folic Acid 1 mg oral capsule See Instructions, TAKE ONE DAILY BY MOUTH, # 100 capsule, 3 Refills, Maintenance, 05/11/21 14:11:00EDT, [facility] #[id number], Partial fill upon patient request if the prescription is for a schedule II opioid drug., TAKE ONE DAILY BY MOUTH, 157... Start Date: 05/11/21 Status: Ordered ProAir HFA 90 mcg/inh inhalation aerosol with adapter 2, puffs, Inhalation, Every 6 hours, PRN, # 18 Gm, Refills 1, Tot. Refills 1, Maintenance, 05/26/2115:26:00 EDT, Aerosol, Route to Pharmacy Electronically, [id number], [facility] #[id number], 157, cm, 05/26/21 15:17:00... Start Date: 05/26/21 Status: Ordered Protective Ointment with Vitamins A&D topical ointment 1 applicator, Topically, Daily, apply on dry skin, # 120 Gm, 2 Refills, Maintenance, 06/30/23 13:12:00 EDT, [facility] #[id number], Partial fill upon patient request if the [...] Informed of [facility] services - pt to call office and request services if needed. 2managed by PCP Social History Social History Type Response Smoking Status Never (less than 100 in lifetime); Exposure to Secondhand Smoke: No entered on: 07/28/21 Sex Patient Care team information Care Team Personnel Name: Davina Greer MD, V Position: [facility] Physician - Primary Care Member Role: PCP Address: Address: [address] [place] [address]- Care Team Related Persons Name: LAM REBOLLEDO Address: home [address] [place] [address] Name: ЕЛЕНА REBOLLEDO Address: home [address] [place] [address] Name: LAM SMALL Address: home [address] [place] [address] Name: CATALINA CASTLE Address: home [address] [place] [address] Name: TAMMY ANG Address: home [address] [place] [address] Name: KALIE ROSAS Address: [address] Address: home [address] [place] [address] Name: ЕЛЕНА SCHMID Address: home [address] [place] [address]
--- OUTSIDE RECORDS SUMMARY | 2024-06-21 08:20 | XMS_ITS | Continuity of Care Document ---
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 Start Date: 08/19/21 Status: Ordered Colace sodium 100 mg oral capsule 100 mg, 1, capsule, By Mouth, 2 times a day, PRN, # 60 capsule, Refills 1, Tot. Refills 1, Maintenance, for constipation, 05/26/21 15:26:00 EDT, Route to Pharmacy Electronically, [facility]#[id number], Partial fill upon patient request if the pr... Start Date: 05/26/21 Status: Ordered MiraLax oral powder for reconstitution = 17 Gm, By Mouth, Daily, dissolve in water before taking, # 255 Gm, 0 Refills, Maintenance, 07/16/21 16:52:00 EDT, REC Powder, [facility] #[id number], Partial fill upon patient request if the prescription is for a schedule II opioid drug., 17 Gm... Start Date: 07/16/21 Status: Ordered petrolatum topical 100% ointment See Instructions, Apply on dry skin BID for one month, # 450 Gm, 11 Refills, Maintenance, 07/28/21 17:16:00 EST, [facility] #[id number], Partial fill upon patient request if the prescription is for a schedule II opioid drug., Apply on dry skin BI... Start Date: 07/28/21 Status: Ordered Multivitamins with Folic Acid 1 mg oral capsule See Instructions, TAKE ONE DAILY BY MOUTH, # 100 capsule, 3 Refills, Maintenance, 05/11/21 14:11:00EDT, [facility] #[id number], Partial fill upon patient request if the prescription is for a schedule II opioid drug., TAKE ONE DAILY BY MOUTH, 157... Start Date: 05/11/21 Status: Ordered ProAir HFA 90 mcg/inh inhalation aerosol with adapter 2, puffs, Inhalation, Every 6 hours, PRN, # 18 Gm, Refills 1, Tot. Refills 1, Maintenance, 05/26/2115:26:00 EDT, Aerosol, Route to Pharmacy Electronically, [id number], [facility] #[id number], 157, cm, 05/26/21 15:17:00... Start Date: 05/26/21 Status: Ordered triamcinolone 0.1% topical lotion See Instructions, Topically 2 times a day apply a thin film to affected area, # 60 mL, 0 Refills, Maintenance, 07/16/21 16:51:00 EDT, Lotion, [facility] #[id number], Partial fill upon patient request if the [...] services at present. Informed of [facility] services - pt to call office and request services if needed. 2managed by PCP 3Urine Social History Social History Type Response Smoking Status Never (less than 100 in lifetime); Exposure to Secondhand Smoke: No entered on: 07/28/21 Sex
--- OUTSIDE RECORDS SUMMARY | 2024-06-21 08:20 | XMS_ITS | Continuity of Care Document ---
Author Organization 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 Start Date: 05/26/21 Status: Ordered famotidine 20 mg oral tablet 20 mg, 1, tablet, By Mouth, Daily at bedtime, # 90 tablet, Refills 1, Tot. Refills 1, Maintenance, 09/29/21 16:45:00 EST, Route to Pharmacy Electronically, [facility] #[id number], Partial fill upon patient request if the prescription is for a miesha... Start Date: 09/29/21 Status: Ordered MiraLax oral powder for reconstitution = 17 Gm, By Mouth, Daily, dissolve in water before taking, # 255 Gm, 0 Refills, Maintenance, 07/16/21 16:52:00 EDT, REC Powder, [facility] #[id number], Partial fill upon patient request if the prescription is for a schedule II opioid drug., 17 Gm... Start Date: 07/16/21 Status: Ordered Multivitamins with Folic Acid 1 mg oral capsule See Instructions, TAKE ONE DAILY BY MOUTH, # 100 capsule, 3 Refills, Maintenance, 05/11/21 14:11:00EDT, [facility] #[id number], Partial fill upon patient request if the prescription is for a schedule II opioid drug., TAKE ONE DAILY BY MOUTH, 157... Start Date: 05/11/21 Status: Ordered ProAir HFA 90 mcg/inh inhalation aerosol with adapter 2, puffs, Inhalation, Every 6 hours, PRN, # 18 Gm, Refills 1, Tot. Refills 1, Maintenance, 05/26/2115:26:00 EDT, Aerosol, Route to Pharmacy Electronically, [id number], [facility] #[id number], 157, cm, 05/26/21 15:17:00... Start Date: 05/26/21 [...]
--- OUTSIDE RECORDS SUMMARY | 2024-06-21 08:20 | XMS_ITS | Continuity of Care Document ---
Author Organization [facility] Address [address] [place] [address]- Care Team Providers Care Nurse Practitioner Hospitalist Name Role Phone Percy BELLE, Davina Aguiar Primary Care Physician Encounter [facility] [place] Date(s): 09/15/21 - 01/01/[address] [address]- Attending Physician: Not on Staff, Attending MD Admitting Physician: Sofia Donnelly CNM Allergies, Adverse Reactions, Alerts No Known Allergies Immunizations Given and Recorded Vaccine Date Status Refusal Reason SARS-CoV-2 mRNA (frcjnlb-kapw-nquhw) vax 11/21/21 Given tetanus/diphtheria/pertussis, acel(Tdap) 09/15/21 Given [...] 05/26/21 15:26:00 EDT, Route to Pharmacy Electronically, [facility][id number], Partial fill upon patient request if the pr... Start Date: 05/26/21 Status: Ordered Depo-Provera Inj = 150 mg, Intramuscular, Once, 0 Refills, Maintenance Start Date: 11/21/21 Status: Ordered famotidine 20 mg oral tablet 20 mg, 1, tablet, By Mouth, Daily at bedtime, # 90 tablet, Refills 1, Tot. Refills 1, Maintenance, 09/29/21 16:45:00 EST, Route to Pharmacy Electronically, [facility] #[id number], Partial fill upon patient request if the prescription is for a miesha... Start Date: 09/29/21 Status: Ordered MiraLax oral powder for reconstitution = 17 Gm, By Mouth, Daily, dissolve in water before taking, # 255 Gm, 0 Refills, Maintenance, 07/16/21 16:52:00 EDT, REC Powder, [facility] #[id number], Partial fill upon patient request if the prescription is for a schedule II opioid drug., 17 Gm... Start Date: 07/16/21 Status: Ordered Multivitamins with Folic Acid 1 mg oral capsule See Instructions, TAKE ONE DAILY BY MOUTH, # 100 capsule, 3 Refills, Maintenance, 05/11/21 14:11:00EDT, [facility] #[id number], Partial fill upon patient request if the prescription is for a schedule II opioid drug., TAKE ONE DAILY BY MOUTH, 157... Start Date: 05/11/21 Status: Ordered ProAir HFA 90 mcg/inh inhalation aerosol with adapter 2, puffs, Inhalation, Every 6 hours, PRN, # 18 Gm, Refills 1, Tot. Refills 1, Maintenance, 05/26/2115:26:00 EDT, Aerosol, Route to Pharmacy Electronically, [id number], [facility] #[id number], 157, cm, 05/26/21 15:17:00... Start Date: 05/26/21 [...]
--- OUTSIDE RECORDS SUMMARY | 2024-06-21 08:20 | XMS_ITS | Continuity of Care Document ---
Author Organization [facility] Address [address] [place] [address]- Care Team Providers Care Autopsy Assistant Name Role Phone Percy BELLE, Davina Aguiar Primary Care Physician Encounter [facility] [place] Date(s): 06/14/23 - 07/14/23 [facility] [address]- [place] Allergies, Adverse Reactions, Alerts No Known Allergies Immunizations Given and Recorded Vaccine Date Status Refusal Reason influenza virus vaccine, inactivated 06/30/23 Give n influenza virus vaccine, inactivated 08/26/22 Give n influenza virus vaccine, inactivated 07/21/21 Give n SARS-CoV-2 mRNA (ujhkfnf-lcka-yving) vax 11/21/21 Given tetanus/diphtheria/pertussis, acel(Tdap) 09/15/21 Given [...] 06/30/23 13:12:00 EDT, Route to Pharmacy Electronically, [facility] #[id number], Partial fill upon patient request if the prescription is for a miesha... Start Date: 06/30/23 Stop Date: 09/28/23 Status: Ordered omeprazole 20 mg oral enteric coated capsule 1 capsule, By Mouth, Daily, # 30 capsule, 0 Refills, Maintenance, 09/30/22 12:35:00 EST, [facility] #[id number], 154.5, cm, 08/26/22 9:56:00 EST, Height, 117, kg, 08/26/22 9:56:00 EST, Dry Weight Start Date: 09/30/22 Status: Ordered Multivitamins with Folic Acid 1 mg oral capsule See Instructions, TAKE ONE DAILY BY MOUTH, # 100 capsule, 3 Refills, Maintenance, 05/11/21 14:11:00EDT, [facility] #[id number], Partial fill upon patient request if the prescription is for a schedule II opioid drug., TAKE ONE DAILY BY MOUTH, 157... Start Date: 05/11/21 Status: Ordered ProAir HFA 90 mcg/inh inhalation aerosol with adapter 2, puffs, Inhalation, Every 6 hours, PRN, # 18 Gm, Refills 1, Tot. Refills 1, Maintenance, 05/26/2115:26:00 EDT, Aerosol, Route to Pharmacy Electronically, [id number], [facility] #[id number], 157, cm, 05/26/21 15:17:00... Start Date: 05/26/21 Status: Ordered Protective Ointment with Vitamins A&D topical ointment 1 applicator, Topically, Daily, apply on dry skin, # 120 Gm, 2 Refills, Maintenance, 06/30/23 13:12:00 EDT, [facility] #[id number], Partial fill upon patient request if the prescription is for aschedule II opioid drug., 1 applicator Topically Da... Start Date: 06/30/23 Status: Ordered triamcinolone 0.025% topical cream 1 application, Topically, 2 times a day, for 14 days, # 60 Gm, 1 Refills, Acute 07/28/23 13:12:00 EST, 06/30/23 13:12:00 EDT, Cream, [facility] #[id number], Partial fill upon patient request if the [...] mental health services at present. Informed of [facility] services - pt to call office and request services if needed. 2managed by PCP Social History Social History Type Response Smoking Status Never (less than 100 in lifetime); Exposure to Secondhand Smoke: No entered on: 07/28/21 Sex Patient Care team information Care Team Personnel Name: Percy BELLE, Davina Aguiar Position: [facility] Physician - Primary Care Member Role: PCP Address: Address: [address] [place] [address]- Care Team Related Persons Name: LAM REBOLLEDO Address: home [address] [place] [address] Name: ЕЛЕНА REBOLLEDO Address: home [address] [place] [address] Name: LAM SMALL Address: home [address] [place] [address] Name: CATALINA CASTLE Address: home [address] [place] [address] Name: TAMMY ANG Address: home [address] [place] [address] Name: KALIE ROSAS Address: [address] Address: home [address] [place] [address] Name: ЕЛЕНА SCHMID Address: home [address] [place] [address]
--- OUTSIDE RECORDS SUMMARY | 2024-06-21 08:20 | XMS_ITS | Continuity of Care Document ---
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 Role Phone Percy BELLE, Davina Aguiar Primary Care Physician [facility] Date(s): 01/07/22 - 02/06/22 [facility] [address] [place] [address] [place] [address]- Attending Physician: AdmOlivia lewis Admitting Physician: Admtr, Olivia Referring Physician: Admtr, Ar8 Allergies, Adverse Reactions, Alerts No Known Allergies Immunizations Given and Recorded Vaccine Date Status Refusal Reason SARS-CoV-2 mRNA (cthgoor-wpfj-npyhv) vax 11/21/21 Given tetanus/diphtheria/pertussis, acel(Tdap) 09/15/21 Given [...] Gm, 0 Refills, Maintenance, 01/31/22 12:17:00 EDT, [facility] #[id number], Partial fill upon patient request i... Start [...] 0 Refills, Maintenance, 01/31/22 12:06:00 EDT, Cream, [facility] #[id number], may substitute cream for oint... Start Date: 01/31/22 Status: Ordered miconazole 2% topical ointment See Instructions, mix small amount with 2 other creams ordered, apply sparingly to nipple after each feed, do not remove before next feed, # 45 Gm, 0 Refills, Maintenance, 01/31/22 12:17:00 EDT, [facility] #[id number], Partial fill upon patient r... Start Date: 01/31/22 Status: Ordered mupirocin 2% topical ointment See Instructions, mix small amount with 2 other creams, apply sparingly to nipple after each feed, do not remove before next feed, # 45 Gm, 0 Refills, Maintenance, 01/31/22 12:17:00 EDT, [facility] #[id number], Partial fill upon patient request i... Start Date: 01/31/22 Status: Ordered Multivitamins with Folic Acid 1 mg oral capsule See Instructions, TAKE ONE DAILY BY MOUTH, # 100 capsule, 3 Refills, Maintenance, 05/11/21 14:11:00EDT, [facility] #[id number], Partial fill upon patient request if the prescription is for a schedule II opioid drug., TAKE ONE DAILY BY MOUTH, 157... Start Date: 05/11/21 Status: Ordered ProAir HFA 90 mcg/inh inhalation aerosol with adapter 2, puffs, Inhalation, Every 6 hours, PRN, # 18 Gm, Refills 1, Tot. Refills 1, Maintenance, 05/26/2115:26:00 EDT, Aerosol, Route to Pharmacy Electronically, [id number], [facility] #[id number], 157, cm, 05/26/21 15:17:00... Start Date: 05/26/21 [...]
--- OUTSIDE RECORDS SUMMARY | 2024-06-21 08:20 | XMS_ITS | Continuity of Care Document ---
Author Organization [facility] Address [address] [place] [address]- Care Team Providers Care Pool Manager Name Role Phone Percy BELLE, Davina Aguiar Primary Care Physician Encounter [facility] [place] Date(s): 02/28/22 - 04/13/22 [facility] [address] [address]- Attending Physician: Not on Staff, Attending MD Allergies, Adverse Reactions, Alerts No Known Allergies Immunizations Given and Recorded Vaccine Date Status Refusal Reason SARS-CoV-2 mRNA (osszzpy-pcxk-kznvf) vax 11/21/21 Given tetanus/diphtheria/pertussis, acel(Tdap) 09/15/21 Given [...] 100 capsule, 3 Refills, Maintenance, 05/11/21 14:11:00EDT, [facility] #[id number], Partial fill upon patient request if the prescription is for a schedule II opioid drug., TAKE ONE DAILY BY MOUTH, 157... Start Date: 05/11/21 Status: Ordered ProAir HFA 90 mcg/inh inhalation aerosol with adapter 2, puffs, Inhalation, Every 6 hours, PRN, # 18 Gm, Refills 1, Tot. Refills 1, Maintenance, 05/26/2115:26:00 EDT, Aerosol, Route to Pharmacy Electronically, [id number], [facility] #[id number], 157, cm, 05/26/21 15:17:00... Start Date: 05/26/21 [...]
--- OUTSIDE RECORDS SUMMARY | 2024-06-21 08:20 | XMS_ITS | Continuity of Care Document ---
Author Organization [facility] ter Address [address] [place] [address]- Care Team Providers Care Slate Worker Name Role Phone Davina Greer MD, V Primary Care Physician Encounter [facility] [place] Date(s): 11/18/21 - 11/21/[address] [address] Discharge Disposition: A-D/C Home Attending Physician: Do Stockton MD Admitting Physician: oD Stockton MD Referring Physician: Do Stockton MD Allergies, Adverse Reactions, Alerts No Known Allergies Immunizations Given and Recorded Vaccine Date Status Refusal Reason SARS-CoV-2 mRNA (zeymjhy-ezmw-hjpos) vax 11/21/21 Given tetanus/diphtheria/pertussis, acel(Tdap) 09/15/21 Given [...] Recorded pneumococcal 13-valent vaccine 04 Recorded Medications acetaminophen 325 mg oral tablet 650 mg, 2, tablet, By Mouth, 3 times a day, PRN, # 50 tablet, Refills 0, Tot. Refills 0, Maintenance, as needed for pain, 11/21/21 12:53:00 EST, Route to Pharmacy Electronically, [facility]#[id number], Partial fill upon patient request if the pr... Start Date: 11/21/21 Status: Ordered Acetaminophen Tablet 650 mg, Tablet, By Mouth, Every 4 hours, PRN for Pain , Mild, (1-3), may give 325mg per patient preference and re-dose with 325mg within 4 hours, if needed. Patient should only receive a total of 650mg of Acetaminophen every 4 hours., Routine, 11/19... Start Date: 11/19/21 Stop Date: 11/21/21 Status: Discontinued Colace sodium 100 mg oral capsule 100 mg, 1, capsule, By Mouth, 2 times a day, PRN, # 60 capsule, Refills 1, Tot. Refills 1, Maintenance, for constipation, 05/26/21 15:26:00 EDT, Route to Pharmacy Electronically, [facility]#[id number], Partial fill upon patient request if the pr... Start Date: 05/26/21 Status: Ordered Depo-Provera Inj = 150 mg, Intramuscular, Once, 0 Refills, Maintenance Start Date: 11/21/21 Status: Ordered famotidine 20 mg oral tablet 20 mg, 1, tablet, By Mouth, Daily at bedtime, # 90 tablet, Refills 1, Tot. Refills 1, Maintenance, 09/29/21 16:45:00 EST, Route to Pharmacy Electronically, [facility] #[id number], Partial fill upon patient request if the prescription is for a miesha... Start Date: 09/29/21 Status: Ordered ibuprofen 600 mg oral tablet 600 mg, 1, tablet, By Mouth, Every 8 hours, # 50 tablet, Refills 0, Tot. Refills 0, Maintenance, 11/21/21 12:53:00 EST, Route to Pharmacy Electronically, [facility] #[id number], Partial fill upon patient request if the prescription is for a sched... Start Date: 11/21/21 Status: Ordered Ibuprofen Tablet 800 mg, Tablet, By Mouth, Every 8 hours, PRN for Pain , Moderate, (4-6), may give 400mg per patientpreference and re-dose with 400mg within 8 hours if needed. Patient should only receive a total of 800mg of Ibuprofen every 8 hours., Routine, ... Start Date: 11/19/21 Stop Date: 11/21/21 Status: Discontinued MiraLax oral powder for reconstitution = 17 Gm, By Mouth, Daily, dissolve in water before taking, # 255 Gm, 0 Refills, Maintenance, 07/16/21 16:52:00 EDT, REC Powder, [facility] #[id number], Partial fill upon patient request if the prescription is for a schedule II opioid drug., 17 Gm... Start Date: 07/16/21 Status: Ordered Multivitamins with Folic Acid 1 mg oral capsule See Instructions, TAKE ONE DAILY BY MOUTH, # 100 capsule, 3 Refills, Maintenance, 05/11/21 14:11:00EDT, [facility] #[id number], Partial fill upon patient request if the prescription is for a schedule II opioid drug., TAKE ONE DAILY BY MOUTH, 157... Start Date: 05/11/21 Status: Ordered ProAir HFA 90 mcg/inh inhalation aerosol with adapter 2, puffs, Inhalation, Every 6 hours, PRN, # 18 Gm, Refills 1, Tot. Refills 1, Maintenance, 05/26/2115:26:00 EDT, Aerosol, Route to Pharmacy Electronically, [id number], [facility] #[id number], 157, cm, 05/26/21 15:17:00... Start Date: 05/26/21 [...] Range]: 1 2 3 Height 155 cm (11/21/21 8:15 AM) 155 cm (11/21/21 7:45 AM) 155 cm (11/21/21 12:23 AM) Weight 113.7 kg (11/18/21 7:45 AM) 113.7 kg (11/18/21 4:55 AM) Oxygen Saturation [94-100 %] 99 % (11/21/21 12:23 AM) 98 % (11/20/21 12:00 AM) 95 % (11/19/21 8:17 PM) Pulse Rate [55-90 bpm] 91 bpm *H* (11/21/21 8:15 AM) 126 bpm *H* (11/21/21 12:23 AM) 98 bpm *H* (11/20/21 4:27 PM) Body Mass Index [18.5-24.99] 47.33 *>HHI* (11/18/21 7:45 AM) Blood Pressure [80-130/50-80 mm Hg] 110/60mm Hg (11/21/21 8:15 AM) 115/67mm Hg (11/21/21 12:23 AM) 122/59mm Hg (11/20/21 4:27 PM) Respiratory Rate [16-30 br/min] 18 br/min (11/21/21 8:15 AM) 18 br/min (11/21/21 12:28 AM) 18 br/min (11/21/21 12:27 AM) Temperature [96.8-100.4 DegF] 97.6 DegF (11/21/21 8:15 AM) 97.8 DegF (11/21/21 12:23 AM) 98.2 DegF (11/20/21 4:27 PM) Mode of Delivery (Oxygen) Room air (11/18/21 5:16 AM) Blood pressure sites Arm, right (11/21/21 8:15 AM) Arm, left (11/20/21 4:27 PM) Arm, right (11/20/21 10:06 AM) Temperature Route Oral (11/21/21 8:15 AM) Oral (11/21/21 12:23 AM) Oral (11/20/21 4:27 PM) Dry Weight 113.7 kg (11/18/21 7:45 AM) 113.7 kg (11/18/21 4:55 AM) Weight Obtained Via Standing scale (11/18/21 4:55 AM) Dry Weight Obtained Via Standing scale (11/18/21 4:55 AM) Social History Social History Type Response Smoking Status Never (less than 100 in lifetime); Exposure to Secondhand Smoke: No entered on: 07/28/21 Sex
--- OUTSIDE RECORDS SUMMARY | 2024-06-21 08:20 | XMS_ITS | Continuity of Care Document ---
Author Organization [facility] Address [address] [place] [address]- Care Team Providers Care Theater Usher Name Role Phone Vishnu Sun MD Primary Care Physician [phone] Encounter [facility] Date(s): 09/28/23 - 10/28/23 [facility] [address]- [place] Allergies, Adverse Reactions, Alerts No Known Allergies Immunizations Given and Recorded Vaccine Date Status Refusal Reason Meningococcal Conjugate Vaccine 08/28/23 Given Meningococcal Conjugate Vaccine 05/08/18 Recorded Hepatitis A Adult Vaccine 08/28/23 Given influenza virus vaccine, inactivated 06/30/23 Give n influenza virus vaccine, inactivated 08/26/22 Give n influenza virus vaccine, inactivated 07/21/21 Give n SARS-CoV-2 mRNA (nqvmarv-fyab-rxujv) vax 11/21/21 Given tetanus/diphtheria/pertussis, acel(Tdap) 09/15/21 Given [...] 08/28/23 15:23:00 EST, Route to Pharmacy Electronically, [facility] #[id number], Partial fill upon patient request if the prescri... Start Date: 08/28/23 Status: Ordered fluticasone 50 mcg/inh nasal spray See Instructions, SHAKE LIQUID AND USE 1 SPRAY IN EACH NOSTRIL DAILY SHAKE WELL BEFORE USING, # 16 Gm, 11 Refills, Maintenance, 09/29/23 17:26:00 EST, [facility] #[id number], 30, SHAKE LIQUID AND USE 1 SPRAY IN EACH NOSTRIL DAILY SHAKE WELL BEFOR... Start Date: 09/29/23 Status: Ordered loratadine 10 mg oral tablet 10 mg, 1, tablet, By Mouth, Daily, PRN, # 30 tablet, Refills 2, Tot. Refills 2, Maintenance, Itch, 09/28/23 13:12:00 EST, Route to Pharmacy Electronically, [facility] #[id number], Partial fill upon patient request if the prescription is for a miesha... Start Date: 09/28/23 Stop Date: 12/27/23 Status: Ordered omeprazole 20 mg oral enteric coated capsule 1 capsule, By Mouth, Daily, # 14 capsule, 0 Refills, Maintenance, 09/12/23 18:52:00 EST, [facility] #[id number], 156, cm, 08/28/23 14:14:00 EST, Height, 114.3, kg, 08/28/23 14:14:00 EST, Dry Weight Start Date: 09/12/23 Stop Date: 09/26/23 Status: Ordered predniSONE 20 mg oral tablet See Instructions, 3 tab PO one time , then 2 tab PO one time a day for 4 days., # 11 tablet, 0 Refills, Maintenance, 08/28/23 15:19:00 EST, [facility] #[id number], Partial fill upon patient request if the prescription is for a schedule II opioid... Start Date: 08/28/23 Status: Ordered Protective Ointment with Vitamins A&D topical ointment 1 applicator, Topically, Daily, apply on dry skin, # 120 Gm, 2 Refills, Maintenance, 06/30/23 13:12:00 EDT, [facility] #[id number], Partial fill upon patient request if the [...] mental health services at present. Informed of [facility] services - pt to call office and request services if needed. 2managed by PCP Social History Social History Type Response Smoking Status Never (less than 100 in lifetime); Exposure to Secondhand Smoke: No entered on: 07/28/21 Sex Patient Care team information Care Team Personnel Name: Vishnu Sun MD Position: [facility] Resident Member Role: PCP Address: Address: [address] [place] [id number]- [place] Care Team Related Persons Name: LAM REBOLLEDO Address: home [address] [place] [address] Name: ЕЛЕНА REBOLLEDO Address: home [address] [place] [address] Name: LAM SMALL Address: home [address] [place] [address] Name: CATALINA CASTLE Address: [address] [place] [address] Name: TAMMY ANG Address: [address] [place] [address] Name: KALIE ROSAS Address: [id number] Address: home [address] [place] [address] [place] Name: ЕЛЕНА SCHMID Address: home [address] [place] [address]
--- OUTSIDE RECORDS SUMMARY | 2024-06-21 08:20 | XMS_ITS | Continuity of Care Document ---
Author Organization [facility] ter Address [address] [place] [address]- Care Team Providers Care Front Office Spec Name Role Phone Percy BELLE, Davina Aguiar Primary Care Physician Encounter [facility] [place] [place] Date(s): 07/16/21 - 07/16/[address] [address] Discharge Disposition: A-D/C Home Attending Physician: Trevor Ventura MD Admitting Physician: Trevor Ventura MD Referring Physician: Tervor Ventura MD Allergies, Adverse Reactions, Alerts Substance Reaction Severity Status NKA Active Immunizations Given and Recorded Vaccine Date Status Refusal Reason SARS-CoV-2 (COVID-19) mRNA BNT-162b2 vac 05/26/21 Given [...] 05/26/21 15:26:00 EDT, Route to Pharmacy Electronically, [facility]#[id number], Partial fill upon patient request if the pr... Start Date: 05/26/21 Status: Ordered MiraLax oral powder for reconstitution = 17 Gm, By Mouth, Daily, dissolve in water before taking, # 255 Gm, 0 Refills, Maintenance, 07/16/21 16:52:00 EDT, REC Powder, [facility] #[id number], Partial fill upon patient request if the prescription is for a schedule II opioid drug., 17 Gm... Start Date: 07/16/21 Status: Ordered Multivitamins with Folic Acid 1 mg oral capsule See Instructions, TAKE ONE DAILY BY MOUTH, # 100 capsule, 3 Refills, Maintenance, 05/11/21 14:11:00EDT, [facility] #[id number], Partial fill upon patient request if the prescription is for a schedule II opioid drug., TAKE ONE DAILY BY MOUTH, 157... Start Date: 05/11/21 Status: Ordered ProAir HFA 90 mcg/inh inhalation aerosol with adapter 2, puffs, Inhalation, Every 6 hours, PRN, # 18 Gm, Refills 1, Tot. Refills 1, Maintenance, 05/26/2115:26:00 EDT, Aerosol, Route to Pharmacy Electronically, [id number], [facility] #[id number], 157, cm, 05/26/21 15:17:00... Start Date: 05/26/21 Status: Ordered triamcinolone 0.1% topical lotion See Instructions, Topically 2 times a day apply a thin film to affected area, # 60 mL, 0 Refills, Maintenance, 07/16/21 16:51:00 EDT, Lotion, [facility] #[id number], Partial fill upon patient request if the prescription is for a schedule II opi... Start Date: 07/16/21 Status: Ordered Problem List Condition Effective Dates [...] recent to oldest [Reference Range]: 1 2 Weight 103.2 kg (07/16/21 2:25 PM) Oxygen Saturation [94-100 %] 100 % (07/16/21 2:25 PM) Pulse Rate [55-90 bpm] 76 bpm (07/16/21 2:25 PM) Blood Pressure [80-130/50-80 mm Hg] 106/ 65mm Hg (07/16/21 2:25 PM) Respiratory Rate [16-30 br/min] 18 br/mi n (07/16/21 3:52 PM) 18 br/min (07/16/21 2:25 PM) Temperature [96.8-100.4 DegF] 98.6 DegF (07/16/21 4:30 PM) 97.7 DegF (07/16/21 2:25 PM) Mode of Delivery (Oxygen) Room air (07/16/21 2:25 PM) Blood pressure sites Arm, right 1 (07/16/21 2:25 PM) Temperature Route Oral (07/16/21 4:30 PM) Oral (07/16/21 2:25 PM) Dry Weight 103.2 kg (07/16/21 2:25 PM) 1Result Comment: right upper arm measured 35.5cm Social History Social History Type Response Smoking Status Never smoker; Tobacc o user in household: No entered on: 02/17/15 Sex
--- OUTSIDE RECORDS SUMMARY | 2024-06-21 08:20 | XMS_ITS | Continuity of Care Document ---
Author Organization [facility] Address [address] [place] [address]- Care Team Providers Care Cuff Setter Overlock Name Role Phone Percy BELLE, Davina Aguiar Primary Care Physician [place] [facility] [place] 11/17/21 - 12/23/21 [facility] [address] [address]- Attending Physician: Do Stockton MD Admitting Physician: Do Stockton MD Referring Physician: Pearl Dorado CNM Allergies, Adverse Reactions, Alerts No Known Allergies Immunizations Given and Recorded Vaccine Date Status Refusal Reason SARS-CoV-2 mRNA (fposkok-mhni-uchrh) vax 11/21/21 Given tetanus/diphtheria/pertussis, acel(Tdap) 09/15/21 Given [...] 05/26/21 15:26:00 EDT, Route to Pharmacy Electronically, [facility]#[id number], Partial fill upon patient request if the pr... Start Date: 05/26/21 Status: Ordered Depo-Provera Inj = 150 mg, Intramuscular, Once, 0 Refills, Maintenance Start Date: 11/21/21 Status: Ordered famotidine 20 mg oral tablet 20 mg, 1, tablet, By Mouth, Daily at bedtime, # 90 tablet, Refills 1, Tot. Refills 1, Maintenance, 09/29/21 16:45:00 EST, Route to Pharmacy Electronically, [facility] #[id number], Partial fill upon patient request if the prescription is for a miesha... Start Date: 09/29/21 Status: Ordered MiraLax oral powder for reconstitution = 17 Gm, By Mouth, Daily, dissolve in water before taking, # 255 Gm, 0 Refills, Maintenance, 07/16/21 16:52:00 EDT, REC Powder, [facility] #[id number], Partial fill upon patient request if the prescription is for a schedule II opioid drug., 17 Gm... Start Date: 07/16/21 Status: Ordered Multivitamins with Folic Acid 1 mg oral capsule See Instructions, TAKE ONE DAILY BY MOUTH, # 100 capsule, 3 Refills, Maintenance, 05/11/21 14:11:00EDT, [facility] #[id number], Partial fill upon patient request if the prescription is for a schedule II opioid drug., TAKE ONE DAILY BY MOUTH, 157... Start Date: 05/11/21 Status: Ordered ProAir HFA 90 mcg/inh inhalation aerosol with adapter 2, puffs, Inhalation, Every 6 hours, PRN, # 18 Gm, Refills 1, Tot. Refills 1, Maintenance, 05/26/2115:26:00 EDT, Aerosol, Route to Pharmacy Electronically, [id number], [facility] #[id number], 157, cm, 05/26/21 15:17:00... Start Date: 05/26/21 [...]
--- OUTSIDE RECORDS SUMMARY | 2024-06-21 08:20 | XMS_ITS | Continuity of Care Document ---
Author Organization [facility] ter Address [address] [place] [address]- Care Team Providers Care Member Of Congress Name Role Phone Davina Greer MD, V Primary Care Physician Encounter [facility] [place] Date(s): 01/13/21 - 01/13/[address] [address]- Encounter Diagnosis Urinary tract infection(Final) - 01/13/21 Discharge Disposition: A-D/C Home Attending Physician: Elie Winter MD Admitting Physician: Elei Winter MD Referring Physician: Not on Staff, Referring [...] Recorded pneumococcal 13-valent vaccine 04 Recorded Medications cephalexin monohydrate 500 mg oral capsule 1 capsule = 500 mg, By Mouth, 4 times a day, for 7 days, # 28 capsule, 0 Refills, Acute 01/20/21 22:57:00 EDT, 01/13/21 22:57:00 EDT, Capsule, [facility] #[id number], Partial fill upon patient request if the prescription is for a schedule II opio... Start Date: 01/13/21 Stop Date: 01/20/21 Status: Ordered Problem List Condition Effective Dates Status Health Status Inform ant Obesity, pediatric(Confirmed) Active Cerebral concussion(Confirmed) Active Eczema(Confirmed) Active Menstrual periods irregular(Confirmed) Active Failed vision screen(Confirmed) Active Vital Signs Most recent to oldest [Reference Range]: 1 2 3 Height 157 cm (01/13/21 11:50 PM) 157 cm (01/13/21 9:13 PM) 157 cm (01/13/21 7:10 PM) Weight 102.0 kg (01/13/21 11:50 PM) 102.0 kg (01/13/21 9:13 PM) 102.0 kg (01/13/21 7:10 PM) Oxygen Saturation [94-100 %] 99 % (01/13/21 11:50 PM) 100 % (01/13/21 9:13 PM) 100 % (01/13/21 7:10 PM) Pulse Rate [55-90 bpm] 76 bpm (01/13/21 11:50 PM) 82 bpm (01/13/21 9:13 PM) 81 bpm (01/13/21 7:10 PM) Body Mass Index [18.5-24.99] 41.38 *>HHI* (01/13/21 11:50 PM) 41.38 *>HHI* (01/13/21 9:13 PM) 41.38 *>HHI* (01/13/21 7:10 PM) Blood Pressure [80-130/50-80 mm Hg] 104/78mm Hg (01/13/21 11:50 PM) 112/63mm Hg (01/13/21 9:13 PM) 115/64mm Hg (01/13/21 7:10 PM) Respiratory Rate [16-30 br/min] 18 br/min (01/13/21 11:50 PM) 18 br/min (01/13/21 9:13 PM) 18 br/min (01/13/21 7:10 PM) Temperature [96.8-100.4 DegF] 98.0 DegF (01/13/21 7:10 PM) 97.9 DegF (01/13/21 5:21 PM) 98.6 DegF (01/13/21 3:35 PM) Mode of Delivery (Oxygen) Room air (01/13/21 11:50 PM) Room air (01/13/21 9:13 PM) Room air (01/13/21 7:10 PM) Blood pressure sites Arm, left (01/13/21 11:50 PM) Arm, left (01/13/21 9:13 PM) Arm, left (01/13/21 7:10 PM) Temperature Route Oral (01/13/21 7:10 PM) Oral (01/13/21 5:21 PM) Oral (01/13/21 3:35 PM) Dry Weight 102.0 kg (01/13/21 11:50 PM) 102.0 kg (01/13/21 9:13 PM) 102.0 kg (01/13/21 7:10 PM) Dry Weight Obtained Via Standing scale (01/13/21 3:35 PM) Social History Social History Type Response Smoking Status Never smoker; Tobacc o user in household: No entered on: 02/17/15 Sex
--- OUTSIDE RECORDS SUMMARY | 2024-06-21 08:20 | XMS_ITS | Continuity of Care Document ---
Author Organization [facility] Address [address] [place] [address]- Care Team Providers Care House Mother Name Role Phone Percy BELLE, Davina Aguiar Primary Care Physician Encounter [facility] Date(s): 01/13/21 - 02/12/21 [facility] [address]- Allergies, Adverse Reactions, Alerts Substance Reaction Severity [...]
--- NOTE | 2024-06-21 10:47 | A.OFFVIS_ITS ---
VS Expanded 06/21/24 11:17 Height 5 ft 1 in Weight 248 lb BMI 46.9 Body Fat % 46.9 Body Fat Mass 116.4 Fat Free Mass 131.8 Visceral Fat Rating 12 Body Water % 38.3 Body Water Mass 95 Basal Metabolic Rate/Score 1,947 Intake Visit Reasons: [employer] SWL BMI 46.9 Allergies No Known Allergies Allergy (Verified 06/21/24 10:48) Medication List - Last Reconciled 06/21/24 by Chavez Peters MD dupilumab (Dupixent) 200 mg subcut Q2W hydroxyzine HCl 25 mg PO BID PRN loperamide 2 mg PO Q6H PRN HPI HPI TV [employer] SWL BMI 46.9: Details: Start time: 10.46am, End time: 11.16am ?I spent 25 minutes speaking with the patient on the phone plus an additional 5 minutes reviewing and updating records for a total of 30 minutes HPI Comments Details: Previous weight loss efforts: Gym Wakes up: 8am, sleeps: 11pm Breakfast: 9am (Cereal, fruits) Lunch: 1pm (chicken, rice, soup) Dinner: 7pm (rice, multani, chicken) Snacks: 3-4pm (fruits, chips), 9pm (ice cream) Exercise: none Fluids: Coffee: none, tea: none, soda: none, juice: Furnas or fruit panch daily, ETOH: rarely PFSH Medical History (Updated 06/21/24 @ 10:50 by Chavez Peters MD) Anxiety Eczema Morbid obesity Surgical History (Updated 05/28/24 @ 11:05 by Julia Kohler CMA) Hx of cholecystectomy Family History (Updated 05/28/24 @ 11:06 by Julia Kohler CMA) Mother Lupus Cancer Father Hypertension Daughter No problems noted. Social History (Updated 05/28/24 @ 11:06 by Julia Kohler CMA) Alcohol intake: current Alcohol intake frequency: holidays/special occasions only Patient Tobacco Use Status: Never used Tobacco Telehealth Telehealth Telehealth Platform: Telephone Location of provider rendering services: practice address Location of patient: address on file Patient Identification confirmed using: Name, : Yes Telehealth method: voice only Patient verbally consented to treatment: Yes Patient verbally consented to billing insurance company: Yes Patient informed of any privacy concerns related to visit: Yes Minutes spent on Phone/Video with Pt.: 30 Assessment & Plan Assessment & Plan (1) Morbid obesity: Code(s): E66.01 - Morbid (severe) obesity due to excess calories Category: Medical Plan: 1.? Plan for lap sleeve gastrectomy. If diaphragmatic or ventral hernias are present at time of surgery, these will be repaired laparoscopically as well. Risks and complications include possible conversion to an open procedure, anastomotic leak, bleeding requiring transfusion, small bowel obstruction, , DVT and pulmonary embolism, cardiac, or pulmonary complications, as mcc complications such as anastomotic ulcer, insufficient weight loss and vitamin deficiencies. I emphasized the importance of close follow-up, adherence to instructions and good communication. 2. You will receive a link of our software alejandro to generate an individualized nutritional and exercise plan specific for you. Please send me a screenshot of the plans you will generate Meal to include lean meat (beef, fish, pork, turkey, chicken), or malay yogurt, or egg whites, or beans with a salad with olive oil and fruits (berries, pears, apples, kiwi). Avoid salt, breads, potatoes, rice, pasta, desserts. ?3. If you choose shakes, each shake would be drunk slowly, like coffee in a period of 2 hours. ?4. If you choose bars, cut each bar in 4 pieces and eat each piece in 30min ?to make each bar last 2 hours. ?5. I emphasized the importance of measuring accurately the food portion and measure it when serving the food in plate ?6. The meal portions include a specific number of forks of meat and salad. You always eat the meat portion but you can replace up to half of salad/vegetables portion with rice, potatoes or pasta, or a fruit ?if you like. The less you do it the better weight loss will be. ?7. One full-size fork is what it can be scooped on the fork without falling aside and not what can be bit with the fork. Use regular forks like those you find in a typical restaurant. ?8.? Please send me weight measurements as soon as possible and then once a week. Always include your diet and exercise plan. 9. The best choice would be to purchase a stationary bike, elliptical or treadmill at home that can track calories. Let me know if you do so I can give you an exercise plan. ?10.?It is important of avoiding and for at least 18 months postoperatively and has been discussed at the infosession. ?11. Goal is to lose at least 1.5-2lbs per week ?12. Goal to lose 10% of your weight before surgery, which is about 25lbs. Ultimate weight goal: 223lbs before surgery 13. Please follow the diet plan exactly without any change. If you don't like something about the plan or you feel hungry you need to communicate with me so I can help you revise the plan. You should not change the plan yourself. 14. To be scheduled for EGD to assess the stomach's anatomy. The possibility of biopsies was discussed. Patient needs to avoid use of NSAIDs and aspirin for 1 week prior to EGD. Risks of perforation and bleeding was discussed with the patient. This will be an outpatient procedure with IV sedation. Orders: Orders Complete Blood Count Auto Diff Today E66.01 - Morbid (severe) obesity due to excess calories IRON PROFILE Today E66.01 - Morbid (severe) obesity due to excess calories Comprehensive Met. Panel Today E66.01 - Morbid (severe) obesity due to excess calories Vitamin B12 and Folate Today E66.01 - Morbid (severe) obesity due to excess calories Vitamin B1 Today E66.01 - Morbid (severe) obesity due to excess calories Ferritin Today E66.01 - Morbid (severe) obesity due to excess calories ECG 12 lead EKG Today E66.01 - Morbid (severe) obesity due to excess calories FL upper GI w air Today E66.01 - Morbid (severe) obesity due to excess calories Insulin Today E66.01 - Morbid (severe) obesity due to excess calories Hemoglobin A1c Today E66.01 - Morbid (severe) obesity due to excess calories H Pylori Breath Test Today E66.01 - Morbid (severe) obesity due to excess calories Lipid Panel Today E66.01 - Morbid (severe) obesity due to excess calories Zinc Today E66.01 - Morbid (severe) obesity due to excess calories C Reactive Protein Today E66.01 - Morbid (severe) obesity due to excess calories Vitamin A Today E66.01 - Morbid (severe) obesity due to excess calories TSH reflex Free T4 Today E66.01 - Morbid (severe) obesity due to excess calories Vitamin D 25-OH Total Today E66.01 - Morbid (severe) obesity due to excess calories US abdomen comp w elastography Today E66.01 - Morbid (severe) obesity due to excess calories XR chest 2V Today E66.01 - Morbid (severe) obesity due to excess calories Referrals Behavioral Health Referral E66.01 - Morbid (severe) obesity due to excess calories Nutrition/Dietitian Referral E66.01 - Morbid (severe) obesity due to excess calories
[2024-06-21 11:17] VITALS: BMI 46.9
== END 2024-06-21 11:18 | disposition home or self-care (01) ==
LOC: HO.HBS 08:17
PROVIDERS: Visit Provider Surgery
DX: E66.01 Morbid (severe) obesity due to excess calories (principal)
CPT/HCPCS: 99203

== ENCOUNTER → 2024-06-21 08:17 | Outpatient (BNVA) | payer OTHER, SELFPAY | PROVIDERS: Visit Provider Surgery ==

== ENCOUNTER 2024-07-16 09:45 | Outpatient (REF) | payer OTHER, SELFPAY ==
--- NOTE | ~2024-07-16 | US_ITS ---
EXAMINATION: US COMPLETE ABDOMEN WITH LIVER ELASTOGRAPHY CLINICAL INFORMATION: Morbid obesity COMPARISON: None available. TECHNIQUE: Real-time imaging of the abdominal viscera. Noninvasive ultrasound liver fibrosis assessment is performed using Rhea ElastPQ point quantification shear wave elastography (pSWE) with a C5-2 MHz transducer. Multiple elastography samples are obtained. FINDINGS: PANCREAS: The visualized pancreatic head and body are normal in appearance. The remainder of the pancreas is obscured from visualization by the overlying bowel gas. ABDOMINAL AORTA: No aortic aneurysm is seen. INFERIOR VENA CAVA: Visualized portions are normal. LIVER: The liver demonstrates normal size and contour with increased echogenicity. No focal lesion or intrahepatic biliary duct dilatation. The right lobe measures 14.1 cm in length. The left lobe measures 10.2 cm in length. Portal flow is towards the liver (hepatopetal). Shear wave liver elastography median stiffness is 1.44 m/s (reference: normal median stiffness is 1.3 m/s or less). IQR/median stiffness to assess sampling precision is 0.22 (reference: good quality data set is IQR/median stiffness of 0.15 or less). GALLBLADDER: The gallbladder is physiologically distended without evidence of stones, sludge, polyps, wall thickening or pericholecystic fluid. COMMON BILE DUCT: Normal in caliber measuring 0.3 cm in diameter. RIGHT KIDNEY: No hydronephrosis. No renal calculi or focal parenchymal lesions. The kidney measures 10.6 cm in maximum dimension. LEFT KIDNEY: No hydronephrosis. No renal calculi or focal parenchymal lesions. The kidney measures 10.6 cm in maximum dimension. SPLEEN: Unremarkable. The spleen measures 9.4 cm in maximum dimension. FREE FLUID: None seen. US/US abdomen comp w elastography IMPRESSION: 1. Hepatic steatosis 2. Liver elastography: Although measurements appear to rule out compensated advanced chronic liver disease, there is statistical variability of the sampling which decreases accuracy. REFERENCE: Society of Radiologists in Ultrasound Liver Stiffness Thresholds (2020): LIVER STIFFNESS THRESHOLDS: *Liver Stiffness equal or less than 1.3 m/s: High probability of being normal. *Liver Stiffness less than 1.7 m/s: In the absence of other known clinical signs, rules out compensated advanced chronic liver disease. *Liver Stiffness 1.7-2.1 m/s: Suggestive of compensated advanced chronic liver disease but need further test for confirmation. *Liver Stiffness over 2.1 m/s: Rules in compensated advanced chronic liver disease. *Liver Stiffness over 2.4 m/s: Suggestive of clinically significant portal hypertension. QUALITY OF DATA SET: *IQR/Median value equal or less than 0.15 implies a quality data set. *IQR/Median value over 0.15 implies a poor quality data set. SIGNIFICANT CHANGE FROM PRIOR EXAM: Significant change if liver stiffness measurement is 10% or greater from prior exam. OTHER CONSIDERATIONS: The stage of liver fibrosis may be overestimated in the setting of acute hepatitis, liver inflammation, elevated liver function tests, hepatic vascular congestion, obstructive cholestasis, non-fasting state, and infiltrative diseases such as amyloidosis and lymphoma. In some patients with NAFLD, the liver stiffness thresholds for compensated advanced chronic liver disease may be lower. In causes other than viral hepatitis and NAFLD, liver stiffness thresholds are not well established. Electronically signed by: Jamel Snyder MD 09/13/2024 09:46 AM [facility] [place]
[2024-07-16 10:31] LABS: MANUAL DIFF FLAG NO
[2024-07-16 10:59] LABS: Basophils Percent Auto 0.8 % (0-2); Eosinophils Absolute Auto 0.4 X10*3/uL (0.0-0.4); Eosinophils Percent Auto 7.7 % (0-4); Hematocrit 39.5 % (37.0-47.0); Hemoglobin 13.3 g/dl (12.0-16.0); Imm Gran Abs Auto 0.01 X10*3/uL (0.00-0.03); Imm Gran Pct Auto 0.2 % (0.0-0.4); Lymphocytes Absolute Auto 1.4 X10*3/uL (1.2-4.9); Lymphocytes Percent Auto 27.6 % (20-40); Mean Corpuscular HGB Conc 33.7 g/dl (31.0-35.0); Mean Corpuscular Hemoglobin 30.4 pg (27.0-33.0); Mean Corpuscular Volume 90.4 fL (80.0-98.0); Mean Platelet Volume 9.6 fL (9.4-12.3); Monocytes Absolute Auto 0.4 X10*3/uL (0.1-1.2); Monocytes Percent Auto 7.9 % (2-11); Neutrophils Absolute Auto 2.9 x10*3/uL (2.0-8.3); Neutrophils Percent Auto 55.8 % (45-73); Platelet Count 301 X10*3/uL (160-400); Red Blood Count 4.37 X10*6/uL (4.20-5.50); White Blood Count 5.2 X10*3/uL (4.8-10.8)
[2024-07-16 11:18] LABS: Estimated Average Glucose 97 mg/dL; Hemoglobin A1C 108.2318 umol/L; Total Hemoglobin (HGBA1C) 3524.6462 umol/L
[2024-07-16 12:07] LABS: Alanine Aminotransferase 18 U/L (0-31); Albumin Level 3.9 g/dL (3.5-5.0); Alkaline Phosphatase 53 U/L (39-117); Anion Gap 10 (12-20); Aspartate Amino Transferase 25 U/L (5-31); Bilirubin Total 0.8 mg/dL (0.0-1.0); Blood Urea Nitrogen 7 mg/dL (9-16); C Reactive Protein 0.16 mg/dL (< or = 0.50); Calcium 9.1 mg/dL (8.4-10.2); Carbon Dioxide 28 mmol/L (22-29); Chloride 107 mmol/L (96-108); Cholesterol 147 mg/dL (<200); Estimated Glomerular Filt Rate > 60; Glucose Random 81 mg/dL (60-115); HDL Cholesterol 42 mg/dL (>40); Iron 105 mcg/dL (30-160); LDL Cholesterol Calculated 87 mg/dL (<100); Percent Iron Saturation 32 % (15-50); Potassium 3.6 mmol/L (3.3-5.1); Sodium 141 mmol/L (135-145); Total Iron Binding Capacity 332 mcg/dL (228-428); Total Protein 7.2 g/dL (6.5-8.0); Triglycerides 93 mg/dL (<150); Unsaturated Iron Binding 227 ug/dL
[2024-07-16 12:13] LABS: Ferritin 78 ng/mL (10-122); Insulin 10 uU/mL (2-29); TSH reflex Free T4 1.19 uIU/mL (0.32-4.0); Vitamin D 25-OH Total 13.2 ng/mL (>30)
[2024-07-16 12:28] LABS: Folate 9.2 ng/mL (> or = 4.0); Vitamin B12 302 pg/mL (200-900)
[2024-07-19 10:37] LABS: Zinc 62 mcg/dL (60-130)
== END 2024-07-16 09:46 | disposition home or self-care (01) ==
LOC: HO.US 09:45
PROVIDERS: Visit Provider Surgery
DX: E66.01 Morbid (severe) obesity due to excess calories (principal)
CPT/HCPCS: 36415; 76700; 76981; 80053; 80061; 82306; 82607; 82728; 82746; 83036; 83525; 83540; 84443; 84630; 85025; 86140

== ENCOUNTER 2024-07-17 08:28 | Day surgery (SDC) | payer OTHER, SELFPAY ==
[2024-07-15 14:12] VITALS: BMI 46.9
--- NOTE | 2024-07-16 09:26 | HO.ANESPROP2 ---
Documented by User: Tasneem Vasquez NP 07/16/24 09:27 HPI - Anesthesia Eval Consult details Narrative: 18yo F for Upper Endoscopy PMFSH Active Problems Active Problems: All Active Problems Anxiety (Acute) Eczema (Acute) Morbid obesity (Acute) Past Medical History Medical History Anxiety Eczema Morbid obesity Family History Family History Mother Lupus Cancer Father Hypertension Daughter No problems noted. Surgical History Surgical History Hx of cholecystectomy Social History Social History Are you a primary direct support professional caregiver to a significant other at home: No Do you presently have visiting nurse or other home services: No Alcohol intake: current Alcohol intake frequency: does not drink Patient Tobacco Use Status: Never used Tobacco Use of substances other than those prescribed or required for medical reasons: Yes Substance Use Frequency: Weekly Have you been hit, kicked, punched, or otherwise hurt by someone within the past year? If so, by whom?: No Advance Directives: No Advance Directives Information Provided: Yes Recently lost weight without trying: No Nutrition Risks: No Nutritional Risk Patient : No (07/15/24) Meds Allergies Allergy/AdvReac Type Severity Reaction Status Date / Time milk Allergy Unknown Verified 07/17/24 09:16 seafood Allergy Unknown Verified 07/17/24 09:16 egg whites Allergy Unknown Uncoded 07/15/24 14:27 Home Medications ?Medication ?Instructions ?Recorded ?Confirmed ?Last Taken ?Type dupilumab 200 mg/1.14 mL 200 mg subcut Q2W 05/28/24 07/17/24 Unknown History subcutaneous pen injector ([employer]) hydroxyzine HCl 25 mg tablet 25 mg PO BID PRN Itching 05/28/24 07/17/24 Unknown History loperamide 2 mg capsule 2 mg PO Q6H PRN Diarrhea 05/28/24 07/17/24 Unknown History Exam Height,Weight and Vital Signs: Height 5 ft 1 in Weight 112.491 kg Assessment and Plan Assessment Anesthesia Assessment: Chart Reviewed Documented by User: Cheryle Hernandez MD 07/17/24 11:37 PMFSH Past Medical History Medical History Anxiety Eczema Morbid obesity Family History Family History Mother Lupus Cancer Father Hypertension Daughter No problems noted. Surgical History Surgical History Hx of cholecystectomy History of Problems with Anesthesia: No Social History Social History Are you a primary direct support professional caregiver to a significant other at home: No Do you presently have visiting nurse or other home services: No Alcohol intake: current Alcohol intake frequency: does not drink Patient Tobacco Use Status: Never used Tobacco Use of substances other than those prescribed or required for medical reasons: Yes Substance Use Frequency: Weekly Have you been hit, kicked, punched, or otherwise hurt by someone within the past year? If so, by whom?: No Advance Directives: No Advance Directives Information Provided: Yes Recently lost weight without trying: No Nutrition Risks: No Nutritional Risk Patient : No (07/15/24) Meds Allergies Allergy/AdvReac Type Severity Reaction Status Date / Time milk Allergy Unknown Verified 07/17/24 09:16 seafood Allergy Unknown Verified 07/17/24 09:16 egg whites Allergy Unknown Uncoded 07/15/24 14:27 Home Medications ?Medication ?Instructions ?Recorded ?Confirmed ?Last Taken ?Type dupilumab 200 mg/1.14 mL 200 mg subcut Q2W 05/28/24 07/17/24 Unknown History subcutaneous pen injector ([employer]) hydroxyzine HCl 25 mg tablet 25 mg PO BID PRN Itching 05/28/24 07/17/24 Unknown History loperamide 2 mg capsule 2 mg PO Q6H PRN Diarrhea 05/28/24 07/17/24 Unknown History Exam Airway Mallampati Class: II TM Dist: >3cm Neck ROM: Full Loose/Missing/Broken Teeth: No Heart: RRR Lungs: CTA Assessment and Plan Assessment Anesthesia Assessment: Anesthesia Plan Discussed Final Anesthetic Review History of Problems with Anesthesia: No NPO: Yes ASA Class: III Final Preanesthetic Review: Meds/Allgs Chart Reviewed, Consent Obtained/Reviewed and Anes Risks/Benef Reviewed Patient Risk: Intermediate Anesthetic Plan Anesthetic Plan: MAC: Disposition: Standard PACU
[2024-07-17 09:12] VITALS: BP 109/58; PULSE 81; RESP 12; TEMP 35.9; O2SAT 97; BMI 47.0
[2024-07-17] MEDS: Lactated Ringers 1,000 ML 80 ML IVCONT (09:19)
[2024-07-17 10:06] LABS: UPreg QC Valid YES; Urine Pregnancy NEGATIVE (NEGATIVE)
--- NOTE | 2024-07-17 11:33 | MHC.SHP ---
Pre-Procedural Eval Section A - 24 Hr Update-Section A only Date of Service: 07/17/24 The patient is an INPATIENT: No The patient has been examined within 24 hours of the surgical procedure. The History & Physical has been completed within 30 days and I have reviewed it.: Yes Section B - Complete if H&P > 30 days Chief Complaint: Morbid (severe) obesity due to excess calories Relevant Family History (Specify if Yes): No Relevant Social History: None Present Medications: None Medical History: No relevant PMH History of Previous Operations: No relevant previous surgery Allergies: Allergies Allergy/AdvReac Type Severity Reaction Status Date / Time milk Allergy Unknown Verified 07/17/24 09:16 seafood Allergy Unknown Verified 07/17/24 09:16 egg whites Allergy Unknown Uncoded 07/15/24 14:27 Review of Systems Sugical H&P ROS: Negative: Constitution, Cardiovascular, Respiratory, Neurological, Psychiatric, Hem-Onc, Allergic/Immunologic, Gastrointestinal, Genitourinary, Musculoskeletal, Integumentary, Endocrine and Eyes/Ears/Nose/Throat Exam Surgical H&P Exam: Normal: HEENT, Normal: Heart, Normal: Lungs, Normal: Extremities, Normal: Abdomen, Normal: Skin and Normal: Neurological Plan Diagnosis/Plan: Unchanged (EGD to assess the stomach's anatomy. Risks of bleeding and perforation were discussed with the patient and she is in agreement with the plan.) I have reviewed the history and physical and performed a pertinent physical examination on my patient. No changes have occurred unless specified. Time Spent With Patient Time: Total time managing care of this patient today ____ minutes.
--- NOTE | 2024-07-17 11:34 | PM.OP ---
Brief Operative Note Date of Service: 07/17/24 Pre-op diagnosis: Morbid obesity Post-op diagnosis: same Procedure: PROCEDURE DATE: 07/17/2024 PREOPERATIVE DIAGNOSIS: GERD POSTOPERATIVE DIAGNOSIS: ?Same as above. 1) Normal PROCEDURE: [id number] with biopsies Surgeon: Belle Peters M.D.. Ph.D. Brim Raiser: None ? Anesthesia: IV sedation Estimated blood loss: ?Minimal FINDINGS AND PROCEDURE: ? OPERATIVE INDICATIONS: ?The patient is a 18 year old female known to me who is interested in bariatric surgery. Based on this information I recommended an upper endoscopy to evaluate the stomach's anatomy. Risks and complications of the surgery were discussed with the patient in advance particularly the possibility of perforation or bleeding that may require surgical intervention. The patient understood the risks and was in agreement with the plan. ? PROCEDURE: After informed consent was obtained by the patient, the patient was ?transferred to the Operating Room and was placed in the supine position.? After successful induction of IV sedation, a mouth block was inserted and the patient was placed in the left lateral decubitus position. An upper endoscopy was performed next, the oropharynx and esophagus appeared within the normal limits. There was no hiatal hernia. The z-line was smooth. Two biopsies were obtained from the distal esophagus 2-3 cm proximal to the GE junction and two additional biopsies from the GE junction. The stomach was entered and it appeared to be of normal size. There was no gastritis. There was no stricture or ulcer. A biopsy was obtained from the gastric fundus and the antrum. No significant bleeding was noted from any of the biopsy sites. Retroflexion of the scope revealed a normal GE junction. The scope was then advanced into the duodenum which appeared to be normal as well. At that point the duodenum ?and the stomach were decompressed and the scope was withdrawn from the patient's mouth. The patient extubated and was transferred in stable condition to the Recovery Room for further care. I was present and performed all steps of the procedure. There were no residents to assist with this case. Bin Peters M.D., Ph.D. Surgeon: Chavez Peters MD Anesthesia: MAC Was an Brim Raiser used for this Procedure?: No Estimated blood loss (mL): 0 IV fluids (mL): 400 Urine output (mL): 0 (No Navarro to record output) Pathology: other (1) antrum x1, 2) fundus x1, 3) GE junction x2, 4) distal esophagus x2) Condition: stable Disposition: PACU
[2024-07-17 12:19] VITALS: BP 120/72; PULSE 89; RESP 17; TEMP 36.6; O2SAT 98
[2024-07-17 12:34] VITALS: BP 99/55; PULSE 94; RESP 16; O2SAT 99
[2024-07-17 12:49] VITALS: BP 108/68; PULSE 78; RESP 16; O2SAT 97
[2024-07-17 13:04] VITALS: BP 102/72; PULSE 65; RESP 16; TEMP 36.6; O2SAT 98
== END 2024-07-17 13:43 | disposition home or self-care (01) ==
PROVIDERS: Visit Provider Surgery
PROC: 0DJ08ZZ Inspection of Upper Intestinal Tract, Via Natural or Artificial Opening Endoscopic (ICD-10-PCS; CPT 43235; principal; 2024-07-17 11:00)
DX: K21.9 Gastro-esophageal reflux disease without esophagitis (principal); E66.01 Morbid (severe) obesity due to excess calories; F41.9 Anxiety disorder, unspecified; L30.9 Dermatitis, unspecified; Z79.899 Other long term (current) drug therapy; Z90.49 Acquired absence of other specified parts of digestive tract
CPT/HCPCS: 43239; 81025; 88305; 88313; 88342; J1100; J1596; J1885; J2003; J2250; J2704

== ENCOUNTER → 2024-07-17 08:28 | Outpatient (BNV) | payer OTHER, SELFPAY | PROVIDERS: Visit Provider Surgery | DX: K21.9 Gastro-esophageal reflux disease without esophagitis (principal) | CPT/HCPCS: 43239 ==

== ENCOUNTER → 2024-07-19 14:13 | Outpatient (BNVA) | payer OTHER, SELFPAY | PROVIDERS: Visit Provider Counselor Mental Health ==

== ENCOUNTER → 2024-07-19 14:13 | Outpatient (AMB) | payer OTHER, SELFPAY ==
--- NOTE | 2024-07-19 14:00 | A.OFFWM_ITS ---
Intake Intake Visit Reasons: TV BH Intake Allergies milk Allergy (Verified 07/17/24 09:16) Unknown seafood Allergy (Verified 07/17/24 09:16) Unknown egg whites Allergy (Uncoded 07/15/24 14:27) Unknown PFSH Medical History Anxiety Eczema Morbid obesity Surgical History Hx of cholecystectomy Family History Mother Lupus Cancer Father Hypertension Daughter No problems noted. Social History Are you a primary day care worker to a significant other at home: No Do you presently have visiting nurse or other home services: No Alcohol intake: current Alcohol intake frequency: does not drink Patient Tobacco Use Status: Never used Tobacco Behavioral Health Assessment Weight Management Therapy Therapy Notes Details PT is a 18 years old female, who presents for a visit to complete BH assessment as part of surgical weight loss program. PT reports she is interested in bariatric surgery as she has been struggling the last 2 years despite attending the gym and doing changes. She has been able to lose weight but then hits a stuck point and won't lose anymore. Presenting Concerns Referral Source WMP-provider. PT saw Dr. Kimberly Samuel. Reason for referral Completion of behavioral health assessment as part of process for weight-loss surgery. Precipitating Event Obesity. Living Situation Current Living Situation Relative's/Guardian's Parvin At risk of losing current housing? No Satisfied with current living situation? Yes Comments PT lives with her mother, and 2 year old her daughter. PT is looking to move alone. Food/Weight/Diet Expectations of change Initial goal to lose 10% of her weight before surgery, which is about 25lbs. Ultimate weight goal: 223lbs before surgery PT wants to work on her relationship with food, lose weight and be able to keep it off. PT reports she has not lose any weight. PT is implementing the following: Current meal plan: 3 shakes (2 scoops in 8oz of milk each), 1 meal @6pm (not doing the forkful situation). Exercise plan: Gym. Tries to go 5 days at week, does treadmill History/Relationship with food PT reports her relationship with food has changed in the last 2 years after she had a cholecystectomy done. She eats a based on what she can tolerate, mostly chicken tenders, soups Tends to skips meals when out to prevent using the bathroom. Example of meals before starting the program: Breakfast: Lunch: Dinner: Snacks: pretzels (2-3 bags at day) Drinks/Liquids: Juice- Couple glasses at day and water. History/Relationship with weight PT reports she has always been overweight. Highest weight was 275Lbs when 2 years ago. Lowest weight 200Lbs at 14 years old. History/Relationship with dieting Gym, [employer] diet, some diets. Diets didn't work as her stomach hurt. Social History Family history and relationship Pt is a single mom of a year old girl. She has 1 brother and a foster sibling. Parents are alive, they're and she was raised by step-dad. She has a overall good family relationships, close to her mom and stepdad. Parental/Familial ultra sound technician obligations 2 years old daughter. Developmental history and status PT was on a IEP in school for reading. Questionnaires PHQ-9 Over the last 2 weeks, how often have you been bothered by any of the following problems? 1. Little interest or pleasure in doing things: several days 2. Feeling down, depressed, or hopeless: several days 3. Trouble falling or staying asleep, or sleeping too much: several days 4. Feeling tired or having little energy: several days 5. Poor appetite or overeating: several days 6. Feeling bad about yourself - or that you are a failure or have let yourself or your family down: several days 7. Trouble concentrating on things, such as reading the newspaper or watching television: several days 8. Moving or speaking so slowly that other people could have noticed. Or the opposite - being so fidgety or restless that you have been moving around a lot more than usual: several days 9. Thoughts that you would be better off or of hurting yourself in some way: not at all Total score: 8 Depression Screening Interpretation: Positive (From new client Pack scanned on 06/24 - New one will be administered within next 2 visits. ) Depression Screening Done: Yes Source: Developed by Drs. Jorge Alberto Hicks, Mary Cash, Daren Pinedo and colleagues, with an educational annette from [employer]. Binge Eating Scale Group 1 A. I don't feel self-conscious about my wt. or body size when I'm with others. B. I feel concerned about how I look to others, but it normally does not make me fell disappointed with myself C. I do get self-conscious about my appearance and wt. which makes me feel disappointed in myself. D. I feel very self-conscious about my wt. and frequently I feel intense shame and disgust for myself. I try to avoid social contacts because of my self- consciousness. Response Group 1: B Group 2 A. I don't have any difficulty eating slowly in the proper manner. B. Although I seem to gobble down foods, I don't end up feeling stuffed because of eating to much. C. At times, I tend to eat quickly and then, I feel uncomfortably full afterwards. D. I have the habit of bolting down my food, without really chewing it. When this happens I usually feel uncomfortably stuffed because I've eaten to much. Response Group 2: B Group 3 A. I feel capable to control my eating urges when I want to. B. I feel like I have failed to control my eating more than the average person. C. I feel utterly helpless when it comes to feeling in control of my eating urges. D. Because I feel so helpless about controlling my eating I have become very desperate about trying to get control. Response Group 3: A Group 4 A. I don't have the habit of eating when I'm bored. B. I sometimes eat when I'm bored, but often I'm able to get busy and get my m ind off food. C. I have a regular habit of eating when I'm bored, but occasionally, I can use some other activity to get my mind off eating. D. I have a strong habit of eating when I'm bored. Nothing seems to help me breath the habit. Response Group 4: C Group 5 A. I'm usually physically hungry when I eat something. B. Occasionally, I eat something on impulse even though I really am not hungry. C. I have the regular habit of eating foods, that I might not really enjoy, to satisfy a hungry feeling even though physically, I don't need the food. D. Although I'm not physically hungry, I get a hungry feeling in my mouth that only seems to be satisfied when I eat a food, like sandwich, that fills my mouth. Sometimes, when I eat the food to satisfy my mouth hunger, I then spit the food out so I won't gain weight. Response Group 5: B Group 6 A. I don't feel any guilt or self-hate after I overeat. B. After I overeat, occasionally I feel guilt or self-hate. C. Almost all the time I experience strong guilt or self-hate after I overeat. Response Group 6: A Group 7 A. I don't lose total control of my eating when dieting even after periods when I overeat. B. Sometimes when I eat a forbidden food on a diet, I feel like I blew it and eat even more. C. Frequently, I have the habit of saying to myself, I've blown it now, why not go all the way, when I overeat on a diet. When that happens I eat more. D. I have a regular habit of starting a strict diets for myself but I break the diets by going on an eating binge. My life seems to be either a feast or famine. Response Group 7: A Group 8 A. I rarely eat so much food that I feel uncomfortably stuffed afterwards. B. Usually about once a month, I each such a quantity of food, I end up feeling very stuffed. C. I have regular periods during the month when I eat large amounts of food, either at mealtime or at snacks. D. I eat so much food that I regularly feel quite uncomfortable after eating and sometimes a bit nauseous. Response Group 8: B Group 9 A. My level of calorie intake does not go up very high or go down very low on a regular basis. B. Sometimes after I overeat, I will try to reduce my caloric intake to almost nothing to compensate for the excess calories I've eaten. C. I have a regular habit of overeating during the night. It seems that my routine is not to be hungry in the morning but overeat in the evening. D. In my adult years, I have had week-long periods where I practically starve myself. This follows periods when I overeat. It seems I live a life of either feast or famine. Response Group 9: C Group 10 A. I usually am able to stop eating when I want to. I know when enough is enough. B. Every so often, I experience a compulsion to eat which I can't seem to control. C. Frequently, I experience strong urges to eat which I seem unable to control, but at other times I can control my eating urges. D. I feel incapable of controlling urges to eat. I have a fear of not being able to stop eating voluntarily. Response Group 10: A Group 11 A. I don't have any problem stopping eating when I feel full. B. I usually can stop eating when I feel full but occasionally overeat leaving me feeling uncomfortably stuffed. C. I have a problem stopping eating once I start and usually I feel uncomfortably stuffed after I eat a meal. D. Because I have a problem not being able to stop eating when I want, I sometimes have to induce vomiting to relieve my stuffed feeling. Response Group 11: B Group 12 A. I seem to eat just as much when I'm with others, Family social gatherings as when I'm by myself. B. Sometimes, when I'm with other persons, I don't eat as much as I want to eat because I'm self-conscious about my eating. C. Frequently, I eat only a small amount of food when others are present, because I'm very embarrassed about my eating. D. I feel so ashamed about overeating that I pick times to overeat when I know no one will see me. I feel like a closet eater. Response Group 12: A Group 13 A. I eat three meals a day with only an occasional between meal snack. B. I eat 3 meals a day, but I also normally snack between meals. C. When I am snacking heavily, I get in the habit of skipping regular meals. D. There are regular periods when I seem to be continually eating, with no planned meals. Response Group 13: D Group 14 A. I don't think much about trying to control unwanted eating urges. B. At least some of the time, I feel my thoughts are pre-occupied with trying to control my eating urges. C. I feel that frequently I spend much time thinking about how much I ate or about trying not to eat anymore. D. It seems to me that most of my waking hours are pre-occupied by thoughts about eating or not eating. I feel like I'm constantly struggling not to eat. Response Group 14: A Group 15 A. I don't think about food a great deal. B. I have strong craving for food but they last only for brief periods of time. C. I have days when I can't seem to think about anything else but food. D. Most of my days seem to be pre-occupied with thoughts about food. I feel like I live to eat. Response Group 15: B Group 16 A. I usually know whether or not I'm physically hungry. I take the right portion of food to satisfy me. B. Occasionally, I feel uncertain about knowing whether or not I'm physically hungry. A these times it's hard to know how much food I should take to satisfy me. C. Even though I might know how many calories I should eat, I don't have any idea what is a normal amount of food for me. Response Group 16: B Binge Eating Score: 14 Score less than 17 Minimal Risk Score between 18-26 Moderate Risk Score between 27-46 High Risk Assessment & Plan Assessment & Plan (1) Adjustment disorder, unspecified: Code(s): F43.20 - Adjustment disorder, unspecified Plan PT has been advised to reach the Dr with her questions and clarification of meal plan, she's also doing a different type of workout to build muscle and she has not lose weight. PT not cleared yet as assessment has not been finalized. PT will return in 2-3 weeks. Next alejandro: CATHIE - PT was unable to finish appointment due to her not having privacy and she said she would call the office to set up the next one. Telehealth Telehealth Telehealth Platform: Telephone Location of provider rendering services: practice address Location of patient: other Patient Identification confirmed using: Name, : Yes Telehealth method: voice only Patient verbally consented to treatment: Yes Patient verbally consented to billing insurance company: Yes Patient informed of any privacy concerns related to visit: Yes Minutes spent on Phone/Video with Pt.: 45 Coding Level of Care Code New Pt Tele Psy Diag Glenny[place] ([id number]) Patient Type New Diagnoses Adjustment disorder, unspecified F43.20 Time Spent (min) 45 Comment Start time: 2:00- End time: 2:45pm. PT unable to do the full session due to privacy.
== END ==
PROVIDERS: Visit Provider Counselor Mental Health
DX: F43.20 Adjustment disorder, unspecified (principal)
CPT/HCPCS: 90791